=== PATIENT | male | born 1970 | race Caucasian/White ===

== ENCOUNTER 2017-05-27 06:49 | Inpatient (IN) | payer MEDICAID ==
[~2017-05-27 06:49] MED LIST: Dexamethasone 4 MG/ML SDV ONE; Gabapentin 300 MG Cap PO ONE; Glycopyrrolate 0.2 MG/ML 5 ML MDV ONE; Lidocaine 1% 2 ML ONE; Midazolam 1 MG/ML 2 ML SDV ONE; Neostigmine Methylsulfate 1 MG/ML 5 ML Syringe ONE; Ondansetron 4 MG/2 ML SDV ONE; Propofol 200 MG/20 ML SDV ONE; Rocuronium 50 MG/5 ML Vial ONE; fentaNYL 100 MCG/2 ML SDV ONE
[2017-05-27] MEDS ORDERED: ceFAZolin 2 GM in Sodium Chloride 0.9% 50 ML IV ONE (07:00)
[2017-05-27] MEDS ORDERED: Dextrose 5%-Lactated Ringers 1,000 ML IV SCH (07:45)
[2017-05-27] MEDS ORDERED: Meropenem 500 MG SDV ONE (07:50)
[2017-05-27] MEDS ORDERED: Propranolol 10 MG Tab PO ONE (08:00)
[2017-05-27] MEDS ORDERED: Succinylcholine 200 MG/10 ML MDV ONE (08:23)
[2017-05-27] MEDS ORDERED: fentaNYL 100 MCG/2 ML SDV ONE ×3 (08:57→10:56)
[2017-05-27] MEDS ORDERED: Linezolid 200 MG/100 ML Bag IRR ONE (09:07)
[2017-05-27] MEDS ORDERED: Rocuronium 50 MG/5 ML Vial ONE ×2 (09:34)
[2017-05-27] MEDS: fentaNYL 25 MCG/HR Transdermal Patch TRDERM SCH (09:58)
[2017-05-27] MEDS ORDERED: Bacitracin Oint 1 GM U/D Packet ONE (10:10)
[2017-05-27] MEDS ORDERED: Naloxone 0.4 MG/ML SDV IVPUSH PRN (10:20)
[2017-05-27] MEDS ORDERED: HYDROmorphone/Normal Saline 15 MG/30 ML PCA IV PRN (10:20)
[2017-05-27] MEDS ORDERED: Naloxone 0.4 MG/ML SDV IV PRN (10:26)
[2017-05-27] MEDS ORDERED: HYDROmorphone/Normal Saline 15 MG/30 ML PCA IV ONE (10:27)
[2017-05-27] MEDS ORDERED: Mupirocin Oint 22 GM Tube TOP ONE (10:30)
[2017-05-27] MEDS ORDERED: Ketorolac 60 MG/2 ML SDV ONE (10:37)
[2017-05-27] MEDS ORDERED: hydrOXYzine HCl 100 MG/2 ML SDV IM ONE (11:29)
[2017-05-27] MEDS ORDERED: Ondansetron 4 MG/2 ML SDV IVPUSH PRN (12:38)
[2017-05-27] MEDS ORDERED: hydrOXYzine HCl 100 MG/2 ML SDV IM PRN (12:38)
[2017-05-27] MEDS ORDERED: hydrOXYzine HCl 25 MG Tab PO PRN (12:38)
[2017-05-27] MEDS: Dextrose 5%-Lactated Ringers 1,000 ML IV SCH ×2 (14:00→19:59)
[2017-05-27] MEDS: VERIFY FENTANYL PATCH TOP SCH ×2 (14:01→20:38)
[2017-05-27] MEDS: Propranolol 10 MG Tab PO SCH ×2 (14:03→20:37)
[2017-05-27] MEDS: Gabapentin 300 MG Cap PO SCH ×2 (14:04→20:38)
[2017-05-27] MEDS: ceFAZolin 2 GM in Sodium Chloride 0.9% 50 ML IV SCH ×2 (14:06→21:45)
[2017-05-27] MEDS: Mupirocin Oint 22 GM Tube TOP SCH (20:37)
[2017-05-27] MEDS: QUETIAPINE PO SCH ×2 (20:39)
[2017-05-28] MEDS: Dextrose 5%-Lactated Ringers 1,000 ML IV SCH ×3 (02:06→15:02)
[2017-05-28] MEDS: ceFAZolin 2 GM in Sodium Chloride 0.9% 50 ML IV SCH (06:04)
[2017-05-28] MEDS ORDERED: Rizatriptan 10 MG Tab.DIS PO PRN (08:25)
[2017-05-28] MEDS ORDERED: traMADol 50 MG Tab PO PRN (08:25)
[2017-05-28] MEDS: Pantoprazole 40 MG Tab.CR PO SCH (08:41)
[2017-05-28] MEDS ORDERED: TRIAMCINOLONE ACETONIDE INH SCH (09:00)
[2017-05-28] MEDS ORDERED: Gabapentin 300 MG Cap PO SCH (09:00)
[2017-05-28] MEDS ORDERED: DULoxetine 30 MG Cap PO SCH (09:00)
[2017-05-28] MEDS ORDERED: Furosemide 20 MG Tab PO SCH (09:00)
[2017-05-28] MEDS: Fluticasone Propionate Nasal Spray 16 GM Bottle NASBOTH SCH (10:02)
[2017-05-28] MEDS: VERIFY FENTANYL PATCH TOP SCH ×2 (10:03→20:24)
[2017-05-28] MEDS: Furosemide 20 MG Tab PO SCH (10:04)
[2017-05-28] MEDS: Gabapentin 300 MG Cap PO SCH ×3 (10:04→20:23)
[2017-05-28] MEDS: DULoxetine 30 MG Cap PO SCH (10:05)
[2017-05-28] MEDS: Mupirocin Oint 22 GM Tube TOP SCH ×2 (10:05→20:23)
[2017-05-28] MEDS: Propranolol 10 MG Tab PO SCH ×3 (10:06→20:24)
[2017-05-28] MEDS: Naloxegol Oxalate 25 MG Tab PO SCH (10:10)
[2017-05-28] MEDS: oxyCODONE 5 MG Tab PO PRN ×4 (10:30→22:32)
[2017-05-28] MEDS: Diclofenac Sodium 1% Gel 100 GM Tube TOP SCH ×3 (10:31→21:09)
[2017-05-28] MEDS: traMADol 50 MG Tab PO SCH (10:33)
--- NOTE | 2017-05-28 11:25 | PN ---
DATE OF SERVICE: 05/28/2017 SUBJECTIVE: Dave is postop day #1. Vital signs have been stable. Temp max 98.8. Oral intake of 1000. Ponce catheter before it was removed was 4125. ANGELES drain 1 and 2 have put out 23 and 23, respectively. He has been up ambulating. Pain has been controlled. REVIEW OF SYSTEMS: Remainder of review of systems negative for any pertinent positives and negatives. OBJECTIVE: GENERAL: Dave Smith is a 46-year-old male. He is alert and orientated. VITAL SIGNS: TPR 98.1, 88, 17, and blood pressure 115/62. HEENT: Negative. NECK: Supple. HEART: Regular rate and rhythm. LUNGS: Clear. ABDOMEN: Dressings dry and intact. Abdominal binder is on. EXTREMITIES: Without peripheral edema. ASSESSMENT: Open repair of recurrent incarcerated incisional hernia associated with painful, distorted, overlying abdominal wall scar. It was an open repair with mesh and revision of scar. Date of surgery 05/27/2017, Donaldo Ayon MD. PLAN: 1. Full liquid diet, advanced to regular as tolerated. 2. Precose 75 mg p.o. t.i.d. before meals. 3. Diclofenac sodium, Voltaren topical, apply q.i.d. to affected area. 4. Cymbalta 30 mg p.o. daily. 5. Furosemide 20 mg p.o. daily. 6. Gabapentin 600 mg p.o. t.i.d. 7. Naloxegol oxalate 25 mg p.o. daily. 8. Oxycodone 5 to 10 mg q.4 hours p.r.n. pain. 9. Seroquel 500 mg at bedtime. 10.Maxalt 10 mg p.r.n. headache, take one dose at onset of headache and repeat in 2 hours. 11.Tramadol 50 mg q.6 hours p.r.n. He uses this for joint pain. 12.Discontinue MANNEQUIN SANDER AND FINISHER. Discontinue continuous pulse ox. 13.N.p.o. after midnight. Dr. Ayon will check his incision. If he looks like he is reacting to the lias, then we will take him to OR and use IV and local sedation and put in sutures instead. This was discussed with Dave. He has had staple several years in the past, but the last time he said they "melted his skin." When he is n.p.o., during the night, if he has pain, he can have Dilaudid IV 2 mg if needed until Dr. Ayon looks at him so he remains completely n.p.o. 14.Good pulmonary toilet encouraged. 15.We will evaluate p.r.n. or in a.m. Shelby Rodriguez PA-C /[id number]
[2017-05-28] MEDS: Cyclobenzaprine 10 MG Tab PO PRN ×2 (12:45→20:23)
[2017-05-28] MEDS: QUETIAPINE PO SCH ×2 (20:25)
[2017-05-28] MEDS ORDERED: QUEtiapine 100 MG Tab PO SCH (21:00)
[2017-05-29] MEDS: Dextrose 5%-Lactated Ringers 1,000 ML IV SCH (00:37)
[2017-05-29] MEDS: HYDROmorphone 1 MG/ML Syringe IVPUSH PRN ×2 (02:32→05:30)
[2017-05-29] MEDS: Diclofenac Sodium 1% Gel 100 GM Tube TOP SCH ×4 (05:34→22:08)
[2017-05-29] MEDS: Pantoprazole 40 MG Tab.CR PO SCH (07:24)
[2017-05-29] MEDS: oxyCODONE 5 MG Tab PO PRN ×4 (07:27→20:44)
[2017-05-29] MEDS ORDERED: Bisacodyl 5 MG Tab PO ONE (08:30)
[2017-05-29] MEDS: Mupirocin Oint 22 GM Tube TOP SCH ×2 (08:38→20:41)
[2017-05-29] MEDS: Propranolol 10 MG Tab PO SCH ×3 (08:39→20:40)
[2017-05-29] MEDS: Furosemide 20 MG Tab PO SCH (08:39)
[2017-05-29] MEDS: DULoxetine 30 MG Cap PO SCH (08:40)
[2017-05-29] MEDS: Fluticasone Propionate Nasal Spray 16 GM Bottle NASBOTH SCH (08:40)
[2017-05-29] MEDS: Gabapentin 300 MG Cap PO SCH ×3 (08:41→20:40)
[2017-05-29] MEDS: Naloxegol Oxalate 25 MG Tab PO SCH (08:41)
[2017-05-29] MEDS: VERIFY FENTANYL PATCH TOP SCH ×2 (08:41→20:40)
[2017-05-29] MEDS: traMADol 50 MG Tab PO SCH (08:46)
[2017-05-29] MEDS ORDERED: Magnesium Hydroxide 400 MG/5 ML Susp 30 ML Cup PO ONE (09:30)
[2017-05-29] MEDS: QUETIAPINE PO SCH ×2 (20:39)
[2017-05-30] MEDS: oxyCODONE 5 MG Tab PO PRN ×2 (01:03→07:07)
[2017-05-30] MEDS: Diclofenac Sodium 1% Gel 100 GM Tube TOP SCH (06:20)
[2017-05-30] MEDS: Pantoprazole 40 MG Tab.CR PO SCH (07:14)
[2017-05-30 07:17] VITALS: BP 120/61
[2017-05-30] MEDS: Fluticasone Propionate Nasal Spray 16 GM Bottle NASBOTH SCH (08:10)
[2017-05-30] MEDS: Naloxegol Oxalate 25 MG Tab PO SCH (08:10)
[2017-05-30] MEDS: Gabapentin 300 MG Cap PO SCH (08:10)
[2017-05-30] MEDS: Furosemide 20 MG Tab PO SCH (08:11)
[2017-05-30] MEDS: DULoxetine 30 MG Cap PO SCH (08:11)
[2017-05-30] MEDS: Propranolol 10 MG Tab PO SCH (08:11)
[2017-05-30] MEDS: Mupirocin Oint 22 GM Tube TOP SCH (08:12)
[2017-05-30] MEDS: fentaNYL 25 MCG/HR Transdermal Patch TRDERM SCH (08:15)
[2017-05-30] MEDS: traMADol 50 MG Tab PO SCH (08:15)
[2017-05-30] MEDS: VERIFY FENTANYL PATCH TOP SCH (08:15)
--- NOTE | 2017-05-30 08:39 | PN ---
DATE OF SERVICE: 05/29/2017 The patient has been afebrile with stable vital signs. No major problems noted overnight. Oral intake is fairly good. We will go up to a step-4 gastric bypass diet today. Incision looks clean with there being no signs of any reaction to the skin lisa, having showered today. He is switched over to oxycodone plus fentanyl patch for pain control and that is satisfactory. I will give him some bowel stimulation today. He may be ready for discharge home tomorrow. Donaldo Ayon MD /[id number]
--- NOTE | 2017-05-31 01:30 | DISCH ---
ADMISSION DIAGNOSES: 1. Recurrent incarcerated incisional hernia. 2. Painful, distorted overlying abdominal wall scar. 3. Chronic upper and lower back pain. 4. Post-concussion syndrome. 5. Headache. 6. Occipital neuralgia. 7. Neurobehavioral disorder. 8. Posttraumatic stress disorder. 9. Anxiety disorder. 10.Insomnia. 11.Closed head injury. 12.Major depressive disorder. 13.Restless legs syndrome. 14.Giovany-en-Y gastric bypass surgery. 15.Unspecified surgical malabsorption. 16.B12 deficiency. 17.Hypoglycemia following gastrointestinal surgery. 18.Environmental allergies. 19.Osteoarthritis of both knees. 20.Vitamin D deficiency. 21.Iron deficiency anemia. 22.Agoraphobia. 23.Tobacco abuse. 24.Bilateral chronic knee pain. 25.Chronic pain of both shoulders. 26.Neck pain. 27.History of deep vein thrombosis of arm. 28.History of acute respiratory failure. 29.Chronic migraine. 30.Myofascial muscle pain. 31.Physical deconditioning. DISCHARGE DIAGNOSIS: Open repair of recurrent incarcerated incisional hernia associated with painful distorted overlying abdominal scar. It was an open repair with mesh and revision of scar. Date of surgery 05/27/2017; Donaldo Ayon M.D. HISTORY: Dave Smith is a 46-year-old male with a recurrent incarcerated incisional hernia associated with a painful distorted overlying abdominal wall scar. After preoperative evaluation, discussion of possible risks and possible complications, he wished to proceed with surgical procedure. HOSPITAL COURSE: Dave had his surgery on 05/27/2017. He had no operative complications. On postop day #1, he was started on a full liquid diet and advanced to a regular diet. His pain was controlled. He was changed from a HOT PATCHER to oral pain medication. His activity was good. On postop day #2, he continued to progress, activity increased, vital signs remained stable, incision looked good, and pain was controlled. On postop day #3, he was able to be discharged to home without any complications. PHYSICAL EXAMINATION: GENERAL: Dave Smith is a 46-year-old male. VITAL SIGNS: Height is 6 feet 0.05 inches, weight is 193 pounds, BMI is 26. TPR 98.2, 89, 16. Blood pressure 120/61. HEENT: Negative. NECK: Supple. HEART: Regular rate and rhythm. LUNGS: Clear. ABDOMEN: [place] intact. There is no skin irritation around the lisa. ANGELES drains x2 intact. Skin area where the ANGELES drains are inserted, looks good. Sutures in place. ANGELES drains are draining a light pink serous drainage. Abdominal binder has been on. EXTREMITIES: Without peripheral edema. DISPOSITION: Discharged to home. CONDITION: Stable and improving. FOLLOWUP APPOINTMENT: Shelby Rodriguez PA-C, on 06/03/2017 at 9:00 a.m. HOME MEDICATIONS: 1. Bactroban ointment use around each ANGELES drain site twice daily and p.r.n. 2. Oxycodone 5 mg take 1 to 2 every 4 hours p.r.n. pain, #50. A new fentanyl patch was placed today on the day of discharge, 05/30/2017. He is to remove that on 06/02/2017. Resume home medications of: 1. Precose 75 mg oral 3 times a day with meals. 2. Calcium citrate 250 mg oral daily. 3. Vitamin D3 5000 international units daily. 4. Cymbalta 30 mg oral daily. 5. Voltaren 1% gel use 4 times daily to affected area. 6. Lasix 20 mg oral daily. 7. Gabapentin 600 mg oral 3 times a day. 8. Multivitamin 1 capsule oral daily. 9. Movantik 25 mg oral daily. 10.Inderal 20 mg oral 3 times a day as needed for tremor. 11.Quetiapine fumarate 500 mg oral at bedtime. 12.Rizatriptan benzoate 10 mg sublingual as directed (Maxalt) 1 dose one time, may repeat in 2 hours if needed, maximum dose 30 mg in 24 hours p.r.n. migraine headaches. 13.Triamcinolone acetonide. 14.Nasacort AQ spray 2 sprays in each nostril once daily. 15.Vitamin B complex 1 before breakfast. 16.Tramadol 50 mg every 6 hours p.r.n. joint pain. DISCHARGE INSTRUCTIONS: 1. Diet after discharge: Usual diet as tolerated. Drink 8 to 10 glasses of water a day. 2. Activity: Cough and deep breath frequently. No lifting greater than 10 pounds for 6 weeks. 3. Driving after discharge: Do not drive on pain medication. 4. Shower/bathing: May shower. 5. Notify provider if any fever, increased pain, swelling, redness, drainage, nausea or vomiting. 6. Wound incision care:. a. Keep site clean and dry. Wear abdominal binder for 6 weeks and then as tolerated. b. Strip, empty, drain, and record ANGELES drains 4 times a day and when half full bring record of drainage to clinic appointment. SPECIAL INSTRUCTIONS: Use incentive spirometer every hour while awake for 1 week and take off fentanyl patch on , 06/02/2017.
--- NOTE | 2017-06-06 09:23 | OR ---
DATE OF PROCEDURE: 05/27/2017 PREOPERATIVE DIAGNOSES: 1. Recurrent incarcerated incisional hernia. 2. Associated painful distorted overlying abdominal wall scar. POSTOPERATIVE DIAGNOSES: 1. Recurrent incarcerated incisional hernia. 2. Associated painful distorted overlying abdominal wall scar. 3. Marked intraabdominal and pelvic adhesions. OPERATIVE PROCEDURES: 1. Open repair of recurrent incarcerated incisional hernia with mesh (63252, 55200). 2. Excision of distorted painful overlying abdominal wall scar (30612). 3. Placement of Vicryl mesh to displace viscera from pelvic and abdominal wall to limit recurrent adhesion formation (43643). ANESTHESIA: General. AN EMPLOYEE SPONSOR OR ADVOCATE AND: Shelby Rodriguez PA-C, and JESUS MANUEL Jones. INDICATION FOR PROCEDURE: This 46-year-old male is presenting with recurrent incisional hernia located in the upper mid abdomen. This has a component that clearly is not reducible. In addition to this, the patient had previously a large open wound and this healed with a large contracted defect overlying the hernia and extending somewhat below that. The plan is to proceed with open repair of recurrent incisional hernia with mesh along with excision of the contracted painful scar overlying the hernia. The potential risks of the procedure including bleeding, infection, injury to underlying viscera, problems with the hernia recurring or the mesh becoming infected; as well as the possibility of cardiopulmonary, septic, or hemorrhagic complications leading to were discussed, and the patient wishes to proceed. DETAILS OF PROCEDURE: The patient was taken to the operating room and placed in a supine position. After general endotracheal anesthesia was induced, a Ponce catheter was inserted, and the abdomen was prepped and draped. Initially, a vertically-oriented elliptical incision around the area of distorted scar was made and carried down through the skin and subcutaneous tissue, and this was then carried down to a point where the fascial edges were entered underlying the hernia site. The hernia sac was then progressively excised in continuity with the overlying cutaneous scar and that specimen eventually delivered from the field. There was some incarcerated small bowel as well as omentum within the hernia, which was dissected free during the course of the dissection. Below that, there was quite a bit in the way of adhesions between the omentum, small bowel, and the pelvic and abdominal fraser. These were taken down to allow adequate placement of the mesh. An oval Ventrio ST hernia patch measuring 19.6 cm x 24.6 cm was then selected and roughly 5 cm intervals around its circumference, 2-0 Vicryl sutures were placed on the polypropylene side of the mesh. Mesh was then soaked in antibiotic-containing saline solution. The stab wounds, where the suture was pulled up, were then marked out. We positioned these such that the edges of the mesh would be fixed to the point well away from the fascial defect itself. Once these were in place, the upper half of the sutures were then pulled through and then that portion of the mesh pulled into the intraabdominal location with the polypropylene side obviously facing the abdominal wall to limit recurrent adhesion formation. Then, a 12-inch segment of Vicryl mesh was then placed. This was positioned behind the urinary bladder along the pelvic sidewalls and up against the abdominal wall and underneath the incision to limit recurrent adhesion formation. Once this was completed, the remaining sutures of the mesh were pulled up, thus, fixing the mesh in general position. On the underlying shelf, the mesh was then circumferentially affixed additionally with titanium tacking screws. At that point, no further problems were noted. The area was irrigated with antibiotic-containing saline solution. The midline fascia was then approximated with a #2 Vicryl stitch and subcutaneous tissue was then closed with 2 layers of 3-0 and 4-0 Vicryl stitch at the subcutaneous tissue level and lisa for the skin. A 10-Upper Sorbian Asif-Collier drain had been also placed through a stab wound inferior incision, which was sutured to the skin with some 3-0 Vicryl stitch as well. The length of the scar revision was 20 cm. Dressing was applied. The patient was taken to the recovery room in a satisfactory condition. Physician assistant family teacher, Shelby Rodriguez, played an essential role in assisting in this case, helping to position the patient, retract structures as needed, as well as suturing and cutting sutures when indicated. Her presence improved patient safety and decreased the operative time. Donaldo Ayon MD /[id number]
== END 2017-05-30 09:00 | disposition home or self-care (01) | DRG 354 ==
LOC: JP.SDSSCHI 06:49 → JP.SDS 06:49 → EDSTATUS 09:00 → JP.2SS 12:27
PROVIDERS: ADMIT Surgery; ATTEND Surgery
PROC: 3E0M05Z Introduction of Adhesion Barrier into Peritoneal Cavity, Open Approach (ICD-10-PCS; principal; 2017-05-27)
PROC: 0HN7XZZ Release Abdomen Skin, External Approach (ICD-10-PCS; principal; 2017-05-27)
PROC: 0WUF0JZ Supplement Abdominal Wall with Synthetic Substitute, Open Approach (ICD-10-PCS; principal; 2017-05-27)
DX: K43.0 Incisional hernia with obstruction, without gangrene (principal); K91.2 Postsurgical malabsorption, not elsewhere classified; L90.5 Scar conditions and fibrosis of skin; E55.9 Vitamin D deficiency, unspecified; Z98.84 Bariatric surgery status; Z98.0 Intestinal bypass and anastomosis status; M17.0 Bilateral primary osteoarthritis of knee; E16.2 Hypoglycemia, unspecified; G43.909 Migraine, unspecified, not intractable, without status migrainosus; Z86.718 Personal history of other venous thrombosis and embolism; F91.8 Other conduct disorders; F43.10 Post-traumatic stress disorder, unspecified; F32.9 Major depressive disorder, single episode, unspecified; F41.9 Anxiety disorder, unspecified; M54.9 Dorsalgia, unspecified; M89.29 Other disorders of bone development and growth, multiple sites
CPT/HCPCS: 36415; 80053; 83735; 84100; 85027; 88305; 94762; A9270-GY; C1781; J0131; J0330; J0690; J1100; J1170; J1885; J2020; J2185; J2250; J2405; J2704; J2710; J3010; J3410; J7042; J7050

== ENCOUNTER 2017-06-24 14:16 | Emergency (ER) | payer MEDICAID ==
--- NOTE | 2017-06-24 14:59 | CR ---
Lordotic view. Heart size within normal limits. Pulmonary vasculature within normal limits. No focal consolidation.
[2017-06-24 16:49] VITALS: BP 128/65
--- NOTE | 2017-06-24 17:43 | EDM.PDOC ---
ED HPI GENERAL MEDICAL PROBLEM - General Chief Complaint: Cardiovascular Problem Stated Complaint: CHEST PAIN Time Seen by Provider: 06/24/17 14:22 Source of Information: Reports: Patient, Other (career coordinator nurses) History Limitations: Reports: No Limitations - History of Present Illness INITIAL COMMENTS - FREE TEXT/NARRATIVE: This patient was brought over from the career and guidance counselor unit where he was receiving a copper infusion. He's a gastric bypass patient. His pain has been going on for about 15-20 minutes. The pain seems to have started in the epigastric area and then went superiorly to the substernal area and all the way up to the throat. It seemed like reflux at first but then it has changed and he calls it a heavy pressure. It is moderately severe at the time that I saw him. It's noted he underwent an abdominal hernia repair on May 27. He denies any history of heart disease or chest pains area he denies shortness of breath. No history of swelling in the extremities or blood clots. - Related Data Allergies Allergy/AdvReac Type Severity Reaction Status Date / Time Iodinated Contrast- Oral and Allergy Unknown Itching Verified 06/24/17 12:09 IV Dye [Iodinated Contrast Media - IV Dye] iohexol [From Omnipaque 140] Allergy Unknown unknown Verified 06/24/17 12:09 morphine Allergy Unknown Itching Verified 06/24/17 12:09 acetaminophen [From Percocet] Allergy Itching Verified 06/24/17 12:09 oxycodone [From Percocet] Allergy Itching Verified 06/24/17 12:09 Home Meds: Home Meds Acarbose [Precose] 75 mg PO TIDMEALS 11/21/13 [History] Cholecalciferol (Vitamin D3) [Vitamin D3] 5,000 units PO DAILY 11/21/13 [History ] Diclofenac Sodium [Voltaren 1% Gel] 1 applic TP QID 11/21/13 [History] Multivitamin [Multivitamins] 1 cap PO DAILY 11/21/13 [History] Propranolol [Inderal] 20 mg PO TID PRN 11/21/13 [History] Vitamin B Complex 1 each PO ACBREAKFAST 11/21/13 [History] Rizatriptan Benzoate [Rizatriptan] 10 mg SL ASDIRECTED 01/16/15 [History] Triamcinolone Acetonide [Nasacort AQ [place]] 2 sprays INH DAILY 01/16/15 [History ] Gabapentin [Neurontin] 600 mg PO TID 07/02/16 [History] Calcium Citrate 250 mg PO DAILY 10/09/16 [History] QUEtiapine Fumarate [Quetiapine Fumarate] 200 mg PO BEDTIME 10/09/16 [History] DULoxetine [Cymbalta] 60 mg PO DAILY 05/26/17 [History] traMADol [Ultram] 50 mg PO Q6H PRN 05/26/17 [History] Onabotulinumtoxina [Botox] 200 units IM .Q90D 06/20/17 [History] Past Medical History HEENT History: Reports: Allergic Rhinitis, Impaired Vision Gastrointestinal History: Reports: Bowel Obstruction, Cholelithiasis, Chronic Constipation, GERD Musculoskeletal History: Reports: Back Pain, Chronic, Osteoarthritis Other Musculoskeletal History: arthritis Neurological History: Reports: Concussion, Headaches, Chronic, Head Trauma, Migraines Other Neuro History: mid-line shift Psychiatric History: Reports: Antisocial Behaviors, Anxiety, Depression, Emotional Problems, PTSD, Other (See Below) Other Psychiatric History: tbi 3 years ago Endocrine/Metabolic History: Reports: None Other Endocrine/Metabolic History: hypoglycemia Hematologic History: Reports: Anemia, B12 Deficiency - Infectious Disease History Infectious Disease History: Reports: Chicken Pox - Past Surgical History HEENT Surgical History: Reports: LASIK GI Surgical History: Reports: Bariatric Procedure, Cholecystectomy, EGD, Hernia , Abdominal, Lysis of Adhesions, Small Bowel Endocrine Surgical History: Reports: None Neurological Surgical History: Reports: None Musculoskeletal Surgical History: Reports: None Social & Family History - Tobacco Use Smoking Status *Q: Current Every Day Smoker Years of Tobacco use: 14 Packs/Tins Daily: 0.2 Used Tobacco, but Quit: No Month Tobacco Last Used: 07/06/2013 Second Hand Smoke Exposure: No - Caffeine Use Caffeine Use: Reports: Coffee - Alcohol Use Days Per Week of Alcohol Use: 0 - Recreational Drug Use Recreational Drug Use: No ED ROS GENERAL - Review of Systems Review Of Systems: See Below Constitutional: Reports: No Symptoms HEENT: Reports: No Symptoms Respiratory: Reports: No Symptoms Cardiovascular: Reports: Chest Pain Endocrine: Reports: No Symptoms GI/Abdominal: Reports: No Symptoms : Reports: No Symptoms Musculoskeletal: Reports: No Symptoms Skin: Reports: No Symptoms Neurological: Reports: No Symptoms ED EXAM, GENERAL - Physical Exam Exam: See Below Exam Limited By: No Limitations General Appearance: Alert, WD/WN, Mild Distress Eye Exam: Bilateral Eye: Normal Inspection Throat/Mouth: Normal Inspection Neck: Supple Respiratory/Chest: Lungs Clear Cardiovascular: Normal Peripheral Pulses, Regular Rate, Rhythm, No Murmur GI/Abdominal: Soft, Other (Patient's wearing an abdominal binder due to the recent surgery) Back Exam: Normal Inspection Extremities: Normal Inspection Neurological: Alert, Oriented Psychiatric: Normal Affect Skin Exam: Warm, Dry Course - Vital Signs Last Recorded V/S: Last Vital Signs Temp 37.2 C 06/24/17 14:33 Pulse 62 06/24/17 16:49 Resp 17 06/24/17 16:49 BP 128/65 06/24/17 16:49 Pulse Ox 97 06/24/17 16:49 - Orders/Labs/Meds Orders: Active Orders 24 hr Category Date Time Status EKG Documentation Completion [RC] ASDIRECTED Care 06/24/17 14:29 Active EKG 12 Lead [EK] Urgent Ther 06/24/17 14:29 Ordered Labs: Laboratory Tests 06/24/17 06/24/17 06/24/17 Range/Units 14:43 14:43 14:43 WBC 7.7 (4.5-11.0) K/uL RBC 4.68 (4.30-5.90) M/uL Hgb 14.5 (12.0-15.0) g/dL Hct 43.0 (40.0-54.0) % MCV 92 (80-98) fL MCH 31 (27-31) pg MCHC 34 (32-36) % Plt Count 219 (150-400) K/uL Neut % (Auto) 61 (36-66) % Lymph % (Auto) 27 (24-44) % [place] % (Auto) 9 H (2-6) % Eos % (Auto) 3 (2-4) % Baso % (Auto) 0 (0-1) % Sodium 141 (140-148) mmol/L Potassium 3.8 (3.6-5.2) mmol/L Chloride 108 (100-108) mmol/L Carbon Dioxide 28 (21-32) mmol/L Anion Gap 5.2 (5.0-14.0) mmol/L BUN 17 (7-18) mg/dL Creatinine 0.7 L (0.8-1.3) mg/dL Est Cr Clr Drug Dosing 147.81 mL/min Estimated GFR (MDRD) > 60 (>60) Glucose 89 (74-106) mg/dL Calcium 8.2 L (8.5-10.1) mg/dL Total Bilirubin 0.2 D (0.2-1.0) mg/dL AST 40 H (15-37) U/L ALT 71 (12-78) U/L Alkaline Phosphatase 143 H (46-116) U/L Troponin I < 0.017 (0.000-0.056) ng/mL Total Protein 6.0 L (6.4-8.2) g/dL Albumin 3.0 L (3.4-5.0) g/dL Globulin 3.0 (2.3-3.5) g/dL Albumin/Globulin Ratio 1.0 L (1.2-2.2) 10/17 Range/Units 17:00 WBC (4.5-11.0) K/uL RBC (4.30-5.90) M/uL Hgb (12.0-15.0) g/dL Hct (40.0-54.0) % MCV (80-98) fL MCH (27-31) pg MCHC (32-36) % Plt Count (150-400) K/uL Neut % (Auto) (36-66) % Lymph % (Auto) (24-44) % [place] % (Auto) (2-6) % Eos % (Auto) (2-4) % Baso % (Auto) (0-1) % Sodium (140-148) mmol/L Potassium (3.6-5.2) mmol/L Chloride (100-108) mmol/L Carbon Dioxide (21-32) mmol/L Anion Gap (5.0-14.0) mmol/L BUN (7-18) mg/dL Creatinine (0.8-1.3) mg/dL Est Cr Clr Drug Dosing mL/min Estimated GFR (MDRD) (>60) Glucose (74-106) mg/dL Calcium (8.5-10.1) mg/dL Total Bilirubin (0.2-1.0) mg/dL AST (15-37) U/L ALT (12-78) U/L Alkaline Phosphatase (46-116) U/L Troponin I < 0.017 (0.000-0.056) ng/mL Total Protein (6.4-8.2) g/dL Albumin (3.4-5.0) g/dL Globulin (2.3-3.5) g/dL Albumin/Globulin Ratio (1.2-2.2) - Radiology Interpretation Free Text/Narrative:: Chest x-ray shows normal heart size normal lung markings - Re-Assessments/Exams Free Text/Narrative Re-Assessment/Exam: 06/24/17 17:46 EKG shows normal sinus rhythm at 65 bpm normal intervals normal QRS normal ST and T waves. The patient became much more comfortable shortly after arriving. When he was rechecked later he was completely pain free and felt like he was ready to go home. We did do a repeat troponin after about 2-1/2 hours and that is negative. I have a very low index of suspicion on this patient I did not feel that a repeat EKG was necessary. Departure - Departure Time of Disposition: 17:42 Disposition: Home, Self-Care 01 Condition: Fair Clinical Impression: Chest pain Referrals: Connor Lopez MD [Primary Care Provider] - Forms: ED Department Discharge Additional Instructions: The pain you had doesn't appear to be related to any kind of heart trouble. Most likely it was from your esophagus may be a little bit of reflux possibly some spasm of your esophagus. Continue all your usual medications and you can go ahead and continue the infusions as arranged by your Dr. Return to the ER at any time if needed - My Orders Last 24 Hours: My Active Orders 06/24/17 14:29 EKG Documentation Completion [RC] ASDIRECTED EKG 12 Lead [EK] Urgent - Assessment/Plan Last 24 Hours: My Active Orders 06/24/17 14:29 EKG Documentation Completion [RC] ASDIRECTED EKG 12 Lead [EK] Urgent
== END 2017-06-24 18:01 | disposition home or self-care (01) ==
LOC: JP.ED 14:16
DX: R07.9 Chest pain, unspecified (principal); F17.210 Nicotine dependence, cigarettes, uncomplicated; Z98.890 Other specified postprocedural states; K21.9 Gastro-esophageal reflux disease without esophagitis; D64.9 Anemia, unspecified; Z79.899 Other long term (current) drug therapy; Z88.6 Allergy status to analgesic agent; Z91.041 Radiographic dye allergy status
CPT/HCPCS: 36415; 71010; 71010-26; 80053; 84484; 85025; 93005; 99285-25

== ENCOUNTER 2017-10-10 06:51 | Day surgery (SDC) | payer MEDICAID ==
[2017-10-10] MEDS ORDERED: Dextrose 5%-Lactated Ringers 1,000 ML IV SCH (07:00)
[2017-10-10] MEDS ORDERED: Midazolam 1 MG/ML 2 ML SDV ONE (07:08)
[2017-10-10] MEDS ORDERED: Propofol 200 MG/20 ML SDV ONE (07:08)
[2017-10-10] MEDS ORDERED: fentaNYL 100 MCG/2 ML SDV ONE (07:08)
[2017-10-10 09:41] VITALS: BP 121/74
--- NOTE | 2017-10-17 18:07 | OR ---
DATE OF PROCEDURE: 10/10/2017 PREOPERATIVE DIAGNOSIS: History of rectal bleeding. POSTOPERATIVE DIAGNOSES: 1. History of rectal bleeding with a normal examination to 30 cm. 2. Inadequate colonoscopy. PROCEDURE: Flexible colonoscopy (incomplete). ANESTHESIA: IV sedation. INDICATION FOR PROCEDURE: This 47-year-old male presenting with history of some rectal bleeding. This generally occurred after completion of bowel movement. The plan is to proceed with a flexible colonoscopy with biopsies and/or polypectomy as indicated. Potential risks including bleeding and perforation were discussed, and the patient wishes to proceed. DETAILS OF PROCEDURE: The patient was taken to the operating room and placed in a left lateral decubitus position. IV sedation was administered, after which the initial digital rectal exam was performed and was unremarkable. Colonoscope was then passed into the rectum. Retroflexion revealed some mildly excoriated hemorrhoids. The scope was then passed roughly 30 cm. The prep was very poor in this case when the scope could not be passed proximal to that. The limited examination to that level however was unremarkable apart from the very mildly excoriated hemorrhoids. Scope was then withdrawn and the procedure was then concluded. As discussed with the patient's , we do not have a good explanation for his rectal bleeding. This likely is hemorrhoidal, but I think we would to have a more complete exam prior to being sure to that. Given this, we will repeat the colonoscopy, prep overnight, and then bring him back tomorrow to hopefully complete a more thorough examination. Donaldo Ayon MD /[id number]
== END 2017-10-10 09:43 | disposition home or self-care (01) ==
LOC: JP.SDS 06:51
PROVIDERS: ATTEND Surgery
DX: K64.8 Other hemorrhoids (principal); K21.9 Gastro-esophageal reflux disease without esophagitis; F41.9 Anxiety disorder, unspecified; F32.9 Major depressive disorder, single episode, unspecified; F17.200 Nicotine dependence, unspecified, uncomplicated; Z88.8 Allergy status to other drugs, medicaments and biological substances; Z91.041 Radiographic dye allergy status; Z91.09 Other allergy status, other than to drugs and biological substances
CPT/HCPCS: 36415; 80053; 82607; 82728; 83735; 84100; 85027; J2250; J2704; J3010; J7042

== ENCOUNTER 2017-10-11 06:25 | Day surgery (SDC) | payer MEDICAID ==
[2017-10-11] MEDS ORDERED: Dextrose 5%-Lactated Ringers 1,000 ML IV SCH (07:00)
[2017-10-11] MEDS ORDERED: Midazolam 1 MG/ML 2 ML SDV ONE (07:09)
[2017-10-11] MEDS ORDERED: Propofol 200 MG/20 ML SDV ONE (07:09)
[2017-10-11] MEDS ORDERED: fentaNYL 100 MCG/2 ML SDV ONE (07:09)
[2017-10-11 08:57] VITALS: BP 130/82
--- NOTE | 2017-10-17 19:37 | OR ---
DATE OF PROCEDURE: 10/11/2017 PREOPERATIVE DIAGNOSIS: History of rectal bleeding. POSTOPERATIVE DIAGNOSES: History of rectal bleeding likely associated with hemorrhoids. OPERATIVE PROCEDURE: Flexible colonoscopy. ANESTHESIA: IV sedation. INDICATION FOR PROCEDURE: The patient presents once again for a flexible colonoscopy to evaluate history of some rectal bleeding. His prep yesterday was unsatisfactory and he reports better results today with regard to the procedure with flexible colonoscopy with biopsies and/or polypectomy as indicated. Potential risks including bleeding and perforation were discussed, and the patient wishes to proceed. DESCRIPTION OF PROCEDURE: The patient was taken to the operating room and placed in the left lateral decubitus position. IV sedation was administered, after which the initial digital rectal exam was performed and it was unremarkable. Colonoscope was then passed into the rectum with retroflexion revealing the uncomplicated hemorrhoidal columns. The scope was then eventually passed to the level of the cecum. Today the prep was fairly good. There was still some moderate solid and liquid stool present, but the vast majority of the surface was radically visualized and only a small polyp would be missed under what appeared to be some excoriated hemorrhoids following up somewhat better prep of the hemorrhoids appeared to be somewhat more excoriated than yesterday and will likely explain the history of the patient having some bleeding at the end of the bowel movement. Apart from that, there was no areas of colitis, no diverticular disease and no polyps or other signs of neoplasia seen throughout the rectum and colon. The scope was then withdrawn, the above findings reconfirmed and the procedure concluded. The patient was taken to the recovery room in satisfactory condition. Recommendation would be to have the patient present within a day or two of any episodes of major rectal bleeding to evaluate the patient in the clinic to potentially provide him with hemorrhoid banding if indicated at that point. Donaldo Ayon MD /[id number]
== END 2017-10-11 09:00 | disposition home or self-care (01) ==
LOC: JP.SDS 06:25
PROVIDERS: ATTEND Surgery
DX: K64.8 Other hemorrhoids (principal); F32.9 Major depressive disorder, single episode, unspecified; Z88.8 Allergy status to other drugs, medicaments and biological substances; Z91.041 Radiographic dye allergy status; Z91.09 Other allergy status, other than to drugs and biological substances; F17.200 Nicotine dependence, unspecified, uncomplicated
CPT/HCPCS: J2250; J2704; J3010; J7042

== ENCOUNTER 2017-12-30 11:12 | Inpatient (IN) | payer MEDICAID ==
[~2017-12-30 11:12] MED LIST changes: +Acetaminophen 500 MG Tab PO ONE; +Celecoxib 200 MG Cap PO ONE; -Dexamethasone 4 MG/ML SDV ONE; -Gabapentin 300 MG Cap PO ONE; -Glycopyrrolate 0.2 MG/ML 5 ML MDV ONE; -Lidocaine 1% 2 ML ONE; +Meropenem 500 MG SDV ONE; -Midazolam 1 MG/ML 2 ML SDV ONE; -Neostigmine Methylsulfate 1 MG/ML 5 ML Syringe ONE; -Ondansetron 4 MG/2 ML SDV ONE; -Propofol 200 MG/20 ML SDV ONE; -Rocuronium 50 MG/5 ML Vial ONE; +Scopolamine 1.5 MG Transdermal Patch TRDERM SCH; -fentaNYL 100 MCG/2 ML SDV ONE
[2017-12-30] MEDS ORDERED: Ropivacaine 44 ML, Dexamethasone 8 MG, EPINEPHrine 0.4 MG, Sodium Chloride 0.9% 33.6 ML NERVRT SCH ×4 (11:30)
[2017-12-30] MEDS ORDERED: Ketamine 500 MG/5 ML MDV IV SCH (11:30)
[2017-12-30] MEDS: Dextrose 5%-Lactated Ringers 1,000 ML IV SCH ×2 (11:36→19:12)
[2017-12-30] MEDS ORDERED: Neostigmine Methylsulfate 1 MG/ML 5 ML Syringe ONE (13:07)
[2017-12-30] MEDS ORDERED: fentaNYL 250 MCG/5 ML SDV ONE ×2 (13:07→14:49)
[2017-12-30] MEDS ORDERED: Ondansetron 4 MG/2 ML SDV ONE (13:07)
[2017-12-30] MEDS ORDERED: Rocuronium 50 MG/5 ML Vial ONE ×2 (13:07→14:31)
[2017-12-30] MEDS ORDERED: Dexamethasone 4 MG/ML SDV ONE (13:07)
[2017-12-30] MEDS ORDERED: Propofol 200 MG/20 ML SDV ONE (13:07)
[2017-12-30] MEDS ORDERED: Glycopyrrolate 0.2 MG/ML 5 ML MDV ONE (13:07)
[2017-12-30] MEDS ORDERED: Gabapentin 300 MG Cap PO ONE (13:08)
[2017-12-30] MEDS: cefOXitin 2 GM in Sodium Chloride 0.9% 50 ML IV ONE ×2 (13:27→19:53)
[2017-12-30] MEDS: HYDROmorphone/Normal Saline 15 MG/30 ML PCA IV SCH (14:52)
[2017-12-30] MEDS ORDERED: Naloxone 0.4 MG/ML SDV IV PRN (16:07)
[2017-12-30] MEDS ORDERED: hydrOXYzine HCl 100 MG/2 ML SDV IM ONE (16:53)
[2017-12-30] MEDS: Mupirocin Oint 22 GM Tube TOP SCH ×2 (17:00→21:04)
[2017-12-30] MEDS ORDERED: fentaNYL 100 MCG/2 ML SDV IVPUSH ONE (17:19)
[2017-12-30] MEDS ORDERED: diphenhydrAMINE 50 MG/ML SDV IVPUSH SCH (19:15)
[2017-12-30] MEDS ORDERED: methylPREDNISolone Sodium Succinate 125 MG/2 ML SDV IVPUSH SCH (19:15)
[2017-12-30] MEDS ORDERED: Ondansetron 4 MG/2 ML SDV IVPUSH PRN (19:41)
[2017-12-30] MEDS ORDERED: Metoclopramide 10 MG/2 ML SDV IVPUSH PRN (19:41)
[2017-12-30] MEDS ORDERED: Labetalol 20 MG/4 ML Syringe IVPUSH PRN (19:48)
[2017-12-30] MEDS: cefOXitin 2 GM in Sodium Chloride 0.9% 50 ML IV SCH (19:54)
[2017-12-30] MEDS ORDERED: Gabapentin 250 MG/5 ML Solution ML 470 ML Bottle PO SCH (21:00)
[2017-12-30] MEDS: Pantoprazole 40 MG Vial IV SCH (21:04)
[2017-12-30] MEDS: Acetaminophen Soln 650 MG/20.3 ML UD Cup PO SCH (21:04)
[2017-12-30] MEDS: hydrOXYzine HCl 100 MG/2 ML SDV IM PRN (21:14)
[2017-12-31] MEDS ORDERED: Iohexol 647 MG/ML 50 ML SDV PO PRN (00:33)
[2017-12-31] MEDS ORDERED: Meperidine PF 100 MG/ML Syringe IM ONE (01:53)
[2017-12-31] MEDS ORDERED: hydrOXYzine HCl 100 MG/2 ML SDV IM ONE (01:54)
[2017-12-31] MEDS: Acetaminophen Soln 650 MG/20.3 ML UD Cup PO SCH ×4 (02:00→19:47)
[2017-12-31] MEDS: HYDROmorphone/Normal Saline 15 MG/30 ML PCA IV SCH ×3 (02:08→13:18)
[2017-12-31] MEDS: cefOXitin 2 GM in Sodium Chloride 0.9% 50 ML IV SCH ×4 (02:34→19:46)
[2017-12-31] MEDS: LORazepam 2 MG/ML SDV IVPUSH PRN ×2 (03:49→15:59)
[2017-12-31] MEDS: Dextrose 5%-Lactated Ringers 1,000 ML IV SCH ×2 (07:02→12:30)
[2017-12-31] MEDS: hydrOXYzine HCl 100 MG/2 ML SDV IM PRN (07:22)
[2017-12-31] MEDS: Mupirocin Oint 22 GM Tube TOP SCH ×2 (08:02→21:17)
[2017-12-31] MEDS ORDERED: Gabapentin 250 MG/5 ML Solution ML 470 ML Bottle PO SCH (09:00)
[2017-12-31] MEDS ORDERED: MVI, Adult with Vitamin K 10 ML, Thiamine 200 MG, Chromium/Copper/Mang/Selen/Zn 1 ML in... IV SCH ×12 (09:00→14:30)
[2017-12-31] MEDS: Celecoxib 200 MG Cap PO SCH (09:33)
[2017-12-31] MEDS: Heparin Sodium 5,000 Units/ML Vial SUBCUT SCH ×2 (09:33→21:16)
[2017-12-31] MEDS: diphenhydrAMINE 50 MG/ML SDV IVPUSH PRN ×2 (10:00→19:51)
[2017-12-31] MEDS: fentaNYL 25 MCG/HR Transdermal Patch TRDERM SCH (10:47)
[2017-12-31] MEDS: DULoxetine 30 MG Cap PO SCH ×2 (12:33→21:18)
[2017-12-31] MEDS: Propranolol 40 MG Tab PO SCH ×2 (12:34→19:46)
[2017-12-31] MEDS: busPIRone 5 MG Tab PO SCH ×3 (12:34→21:17)
[2017-12-31] MEDS: Nicotine 21 MG/24 Hr Patch TRDERM SCH (12:35)
[2017-12-31] MEDS: Furosemide 20 MG Tab PO SCH (12:35)
[2017-12-31] MEDS: traMADol 50 MG Tab PO SCH ×3 (13:17→21:16)
[2017-12-31] MEDS: Gabapentin 250 MG/5 ML Solution ML 470 ML Bottle PO SCH ×2 (13:18→21:16)
[2017-12-31] MEDS ORDERED: Dextrose 5%-Lactated Ringers 1,000 ML IV SCH (18:00)
[2017-12-31] MEDS: Pantoprazole 40 MG Vial IV SCH (19:46)
[2017-12-31] MEDS: ALPRAZolam 0.5 MG Tab PO SCH (21:17)
[2018-01-01] MEDS: HYDROmorphone/Normal Saline 15 MG/30 ML PCA IV SCH (02:14)
[2018-01-01] MEDS: cefOXitin 2 GM in Sodium Chloride 0.9% 50 ML IV SCH ×4 (02:16→19:58)
[2018-01-01] MEDS: Acetaminophen Soln 650 MG/20.3 ML UD Cup PO SCH ×4 (02:17→19:59)
[2018-01-01] MEDS: hydrOXYzine HCl 100 MG/2 ML SDV IM PRN ×2 (02:51→16:26)
[2018-01-01] MEDS: Propranolol 40 MG Tab PO SCH ×3 (05:00→19:58)
[2018-01-01] MEDS: traMADol 50 MG Tab PO SCH ×6 (05:00→22:03)
[2018-01-01] MEDS: LORazepam 2 MG/ML SDV IVPUSH PRN (05:22)
[2018-01-01] MEDS: DULoxetine 30 MG Cap PO SCH ×2 (08:41→20:49)
[2018-01-01] MEDS: busPIRone 5 MG Tab PO SCH ×3 (08:41→20:48)
[2018-01-01] MEDS: Gabapentin 250 MG/5 ML Solution ML 470 ML Bottle PO SCH ×3 (08:42→22:04)
[2018-01-01] MEDS: Furosemide 20 MG Tab PO SCH (08:42)
[2018-01-01] MEDS: Celecoxib 200 MG Cap PO SCH (08:42)
[2018-01-01] MEDS: Nicotine 21 MG/24 Hr Patch TRDERM SCH (08:43)
[2018-01-01] MEDS: Heparin Sodium 5,000 Units/ML Vial SUBCUT SCH ×2 (08:44→20:50)
[2018-01-01] MEDS ORDERED: REMOVE SCOPOLAMINE TRDERM ONE (09:00)
[2018-01-01] MEDS ORDERED: Cyanocobalamin (Vitamin B12) 1,000 MCG/ML SDV IM ONE (09:00)
[2018-01-01] MEDS: Mupirocin Oint 22 GM Tube TOP SCH ×2 (09:33→20:47)
[2018-01-01] MEDS ORDERED: Sodium Chloride 0.9% 10 ML Syringe IV PRN (09:36)
[2018-01-01] MEDS ORDERED: Polyethylene Glycol 3350 Powder 119 GM Bottle PO ONE (10:00)
[2018-01-01] MEDS: oxyCODONE 5 MG Tab PO PRN ×4 (10:10→22:50)
[2018-01-01] MEDS ORDERED: NASACORT NASBOTH PRN (14:21)
--- NOTE | 2018-01-01 17:38 | PN ---
DATE OF SERVICE: 01/01/2018 The patient has been afebrile with stable vital signs. Oral intake has been fairly good, around 3500 mL. He is not moving his bowels and was extremely constipated intraoperatively, so we will give him MiraLax 119 g today with Gatorade and do that more or less daily until we get him on a decent bowel regimen. Otherwise, switch over to oral pain medication. Discontinue the Ponce catheter and maximize activity and work with pulmonary toilet. Donaldo Ayon MD /[id number]
[2018-01-01] MEDS: Pantoprazole 40 MG Vial IV SCH (19:59)
[2018-01-01] MEDS: ALPRAZolam 0.5 MG Tab PO SCH (20:51)
[2018-01-02] MEDS: cefOXitin 2 GM in Sodium Chloride 0.9% 50 ML IV SCH ×2 (02:31→08:17)
[2018-01-02] MEDS: Acetaminophen Soln 650 MG/20.3 ML UD Cup PO SCH ×4 (02:38→20:26)
[2018-01-02] MEDS: oxyCODONE 5 MG Tab PO PRN ×4 (02:38→19:38)
[2018-01-02] MEDS: Propranolol 40 MG Tab PO SCH ×3 (04:43→20:26)
[2018-01-02] MEDS: traMADol 50 MG Tab PO SCH ×5 (05:21→21:57)
[2018-01-02] MEDS: busPIRone 5 MG Tab PO SCH ×3 (08:06→20:27)
[2018-01-02] MEDS: Mupirocin Oint 22 GM Tube TOP SCH ×2 (08:06→20:30)
[2018-01-02] MEDS: DULoxetine 30 MG Cap PO SCH ×2 (08:07→20:30)
[2018-01-02] MEDS: Heparin Sodium 5,000 Units/ML Vial SUBCUT SCH ×2 (08:07→20:29)
[2018-01-02] MEDS: Celecoxib 200 MG Cap PO SCH (08:07)
[2018-01-02] MEDS: Furosemide 20 MG Tab PO SCH (08:08)
[2018-01-02] MEDS: Gabapentin 250 MG/5 ML Solution ML 470 ML Bottle PO SCH ×3 (08:08→20:26)
[2018-01-02] MEDS ORDERED: hydrOXYzine HCl 100 MG/2 ML SDV IM ONE (08:09)
--- NOTE | 2018-01-02 08:10 | PN ---
DATE OF SERVICE: 12/31/2017 The patient has been afebrile with stable vital signs. Pain control remains somewhat of an issue. He is on quite a bit of pain medicine and will add a fentanyl patch to current regimen today, as well as some tramadol, which he takes on a routine basis. Otherwise, will go up to a step-2 diet, as upper GI x-ray looks good, Ponce catheter will get out tomorrow morning, and back down on the IV rate somewhat, continue to maximize activity, and work with pulmonary toilet. Donaldo Ayon MD /[id number]
[2018-01-02] MEDS: LORazepam 2 MG/ML SDV IVPUSH PRN ×2 (08:54→16:32)
[2018-01-02] MEDS ORDERED: Polyethylene Glycol 3350 Powder 119 GM Bottle PO ONE (09:00)
[2018-01-02] MEDS ORDERED: Tamsulosin 0.4 MG Cap.ER PO ONE (09:00)
--- NOTE | 2018-01-02 09:38 | CR ---
UGI wo KUB CLINICAL HISTORY: Revision of Giovany-en-Y FINDINGS: 2 upright views of the abdomen were obtained after ingesting a small amount of water-solubl e contrast. There is contrast in the distal esophagus. The delayed image at 20 minutes shows contrast traversing the jejunum and the proximal ileum. There is no evidence of obstruction. No extravasation is seen. Surgical drains are seen in the left lower abdomen There is a tiny amount of free air under the left hemidiaphragm. IMPRESSION: No evidence of extravasation or obstruction post surgery
[2018-01-02] MEDS: Nicotine 21 MG/24 Hr Patch TRDERM SCH (10:09)
[2018-01-02] MEDS: VERIFY FENT PATCH TOP SCH ×2 (13:12→20:29)
[2018-01-02] MEDS: hydrOXYzine HCl 100 MG/2 ML SDV IM PRN (16:15)
--- NOTE | 2018-01-02 16:49 | PN ---
DATE OF SERVICE: 01/02/2018 SUBJECTIVE: Dave is postop day 3, had some urinary retention. Ponce catheter had to be replaced. He is starting to have bowel movements. Pain is controlled. REVIEW OF SYSTEMS: Remainder of review of systems is negative for any pertinent positives and negatives. OBJECTIVE: GENERAL: Dave Smith is a 47-year-old male. He is alert and orientated. VITAL SIGNS: TPR 98.9, 85, 16; blood pressure 140/78. HEENT: Negative. NECK: Supple. HEART: Regular rate and rhythm. LUNGS: Clear. ABDOMEN: Dressings dry and intact. Abdominal binder is on. EXTREMITIES: Without peripheral edema. ASSESSMENT: Exploratory laparotomy with release of small-bowel obstruction, removal of intraperitoneal mesh, percutaneous liver biopsy, gastric bypass revision, and small bowel resection. Date, 12/30/2017. Surgeon, Donaldo Ayon MD. PLAN: 1. Flomax 0.4 mg p.o. now. 2. Flomax 0.4 mg at bedtime p.o. 3. Discontinue Ponce in a.m., 01/03/2018 at 0500. 4. Senna Plus 2 at bedtime. 5. Flomax 0.4 mg p.o. at bedtime, starting today. 6. MiraLAX 119 g in 32 ounces of Gatorade today. 7. Good pulmonary toilet. 8. We will evaluate p.r.n. or in a.m. Shelby Rodriguez PA-C /[id number]
[2018-01-02] MEDS: ALPRAZolam 0.5 MG Tab PO SCH (20:26)
[2018-01-02] MEDS: Tamsulosin 0.4 MG Cap.ER PO SCH (20:28)
[2018-01-02] MEDS: Pantoprazole 40 MG Tab.CR PO SCH (20:28)
[2018-01-03] MEDS: Propranolol 40 MG Tab PO SCH ×3 (03:05→20:37)
[2018-01-03] MEDS: oxyCODONE 5 MG Tab PO PRN ×5 (03:05→22:31)
[2018-01-03] MEDS: Acetaminophen Soln 650 MG/20.3 ML UD Cup PO SCH ×4 (03:05→20:37)
[2018-01-03] MEDS: traMADol 50 MG Tab PO SCH ×5 (05:39→22:30)
--- NOTE | 2018-01-03 08:44 | PN ---
DATE OF SERVICE: 01/03/2018 The patient has been afebrile with stable vital signs. Pain control is better with the addition of the Vistaril. We will keep him one more day to establish a good bowel regimen. I think we will try, in addition to the Senna Plus, getting him on 3 scoops, i.e., 17 grams x3 of MiraLax daily. JPs #2 and #3 will be removed. The ANGELES #1 has an incision, he will go home with that probably tomorrow. Donaldo Ayon MD /[id number]
[2018-01-03] MEDS ORDERED: Polyethylene Glycol 3350 Powder 17 GM Packet PO ONE (09:00)
[2018-01-03] MEDS: busPIRone 5 MG Tab PO SCH ×3 (09:21→20:36)
[2018-01-03] MEDS: Heparin Sodium 5,000 Units/ML Vial SUBCUT SCH ×2 (09:21→20:39)
[2018-01-03] MEDS: Nicotine 21 MG/24 Hr Patch TRDERM SCH (09:21)
[2018-01-03] MEDS: Celecoxib 200 MG Cap PO SCH (09:22)
[2018-01-03] MEDS: Gabapentin 250 MG/5 ML Solution ML 470 ML Bottle PO SCH ×3 (09:22→20:53)
[2018-01-03] MEDS: DULoxetine 30 MG Cap PO SCH ×2 (09:22→20:36)
[2018-01-03] MEDS: Mupirocin Oint 22 GM Tube TOP SCH ×2 (09:30→20:38)
[2018-01-03] MEDS: VERIFY FENT PATCH TOP SCH ×2 (09:32→20:54)
[2018-01-03] MEDS: fentaNYL 25 MCG/HR Transdermal Patch TRDERM SCH (11:20)
[2018-01-03] MEDS: Furosemide 20 MG Tab PO SCH (11:21)
[2018-01-03] MEDS: Pantoprazole 40 MG Tab.CR PO SCH (20:36)
[2018-01-03] MEDS: Tamsulosin 0.4 MG Cap.ER PO SCH (20:36)
[2018-01-03] MEDS: ALPRAZolam 0.5 MG Tab PO SCH (20:52)
[2018-01-04] MEDS: oxyCODONE 5 MG Tab PO PRN ×2 (03:05→07:29)
[2018-01-04] MEDS: Propranolol 40 MG Tab PO SCH (03:09)
[2018-01-04] MEDS: Acetaminophen Soln 650 MG/20.3 ML UD Cup PO SCH ×2 (03:10→07:31)
[2018-01-04] MEDS: traMADol 50 MG Tab PO SCH (05:59)
[2018-01-04 08:07] VITALS: BP 121/65
--- NOTE | 2018-01-05 01:27 | DISCH ---
ADMISSION DIAGNOSES: 1. Elevated liver function tests. 2. Partial small bowel obstruction. 3. Postprandial abdominal pain. 4. Status post Giovany-en-Y gastric bypass surgery. 5. Chronic migraine headaches. 6. Environmental allergies. 7. Iron deficiency anemia. 8. History of acute respiratory failure. 9. Reactive hypoglycemia following gastrointestinal surgery. 10.Long-term use of opioid analgesic treatment. 11.Major depression. 12.Unspecified surgical malabsorption. 13.B12 deficiency. 14.Absent seizures. 15.Gastroesophageal reflux disease. DISCHARGE DIAGNOSES: 1. Exploratory laparotomy with lysis of adhesions, small bowel resection with revision of the JJ component of the Giovany-en-Y gastric bypass surgery, removal of intraperitoneal mesh, en bloc with adherent small bowel resection, rectosigmoid colon resection with coloproctostomy, resection of fused area mid abdominal viscera 5 cm, placement of Vicryl mesh and Tom-Cut needle liver biopsy for elevated liver function tests, small bowel obstruction involving JJ component of the Giovany-en-Y gastric bypass surgery, small bowel adherent intraperitoneal mesh, massive distortion of sigmoid colon associated with sigmoid colon volvulus, fascial mass midportion of abdominal mucosa. DATE OF SURGERY: 12/30/2017, Dr. Donaldo Ayon is surgeon. HISTORY: Dave Smith is a 47-year-old male with abdominal pain after preoperative evaluation and discussion of possible risks and possible complications, he wished to proceed with surgical procedure. HOSPITAL COURSE: Dave had his surgery on 12/30/2017. He had no operative complications. On postop day 1, vital signs were stable. Pain control was difficult to manage. A fentanyl patch was added as well as tramadol. He was started on a step-2 gastric bypass diet. On postop day 2, he remained afebrile. Oral intake was good. He was started on MiraLAX 119 g. On postop day 3, his Ponce catheter was removed, started on Flomax, senna Plus, and another dose of MiraLAX 119 g. On postop day 4, he started having bowel movements. Pain was better controlled. His activity was good, and he was able to be discharged on postop day 5. PHYSICAL EXAMINATION: GENERAL: Dave Smith is a 47-year-old male. Alert, orientated. VITAL SIGNS: Height is 6 feet, weight 189 pounds. TPR 97.7, 77, 16. Blood pressure 121/65. HEENT: Negative. NECK: Supple. HEART: Regular rate and rhythm. LUNGS: Clear. ABDOMEN: Stapled. Incisions good. ANGLEES drains have put out 850, 10 respectively, and abdominal binder has been on. EXTREMITIES: Without peripheral edema. DISPOSITION: Discharged to home. CONDITION: Stable and improving. FOLLOWUP APPOINTMENT: With Dr. Donaldo Ayon on 01/11/2018 with Donaldo Ayon MD at [facility]. HOME MEDICATIONS: 1. Tylenol 650 mg q.6 hours for 2 weeks. 2. Celebrex 200 mg p.o. daily, #14. 3. Duragesic 25 mcg patch, to remove on Tuesday01/06/2018. 4. Oxycodone 10 mg q.4 hours p.r.n. pain, #40. 5. Resume his home medications: a. Xanax 1 to 2 mg at bedtime p.r.n. anxiety. b. Precose 75 mg oral 3 times a day. c. Elavil 100 mg oral at bedtime. d. Calcium citrate 250 mg oral daily. e. Vitamin D3 5000 international units oral daily. f. Vitamin B12 1000 mcg IM every 3 weeks. g. Cymbalta 30 mg oral every evening. h. Cymbalta 60 mg every morning. i. Voltaren 1% gel one applicator to affected area 4 times a day. j. Vitamin D 50,000 International Units every Tuesday, Tuesday, and Tuesday. k. Folic acid 1 mg oral daily. l. Furosemide 20 mg oral daily. m. Gabapentin 600 mg oral 3 times a day. n. Multivitamin 1 capsule oral twice daily. o. Inderal 80 mg 3 times a day. p. Rizatriptan Benzoate 10 mg sublingual as directed for migraine headaches. q. Nasacort AQ spray 2 sprays inhaled daily. r. Vitamin B complex 1 daily before breakfast. s. Zinc 50 mg oral daily. t. BuSpar 15 mg 3 times a day p.r.n. u. He is to discontinue taking the tramadol while he is on the oxycodone. DIET AFTER DISCHARGE: Usual diet as tolerated. Drink 8 to 10 glasses of water a day. ACTIVITY: As tolerated. No lifting greater than 10 pounds for 6 weeks. DRIVING: Do not drive on pain medication. SHOWER/BATHING: May shower. INSTRUCTIONS: Notify provider if any fever, increased pain, nausea, or vomiting. Keep site clean and dry. Wear abdominal binder for 6 weeks and then as tolerated. SPECIAL INSTRUCTIONS: 1. Use incentive spirometer 10 times every hour while awake. 2. Take off fentanyl patch on Tuesday01/06/2018. 3. Strip empty measure and record ANGELES drain 4 times a day and bring record of drainage to clinic appointment.
--- NOTE | 2018-01-09 14:23 | OR ---
DATE OF PROCEDURE: 12/30/2017 PREOPERATIVE DIAGNOSES: 1. Partial small bowel obstruction. 2. Elevated liver function tests. POSTOPERATIVE DIAGNOSES: 1. Small bowel obstruction involving jejunojejunostomy component of the Giovany-en-Y gastric bypass. 2. Small bowel adherent to intraperitoneal mesh. 3. Massive distention of sigmoid colon associated with sigmoid colon volvulus. 4. Fascial mass in midportion of abdominal wall incision. 5. Elevated liver function tests. OPERATIVE PROCEDURES: Exploratory laparotomy with lysis of extensive adhesions and: 1. Small bowel resection with revision of jejunojejunostomy component of the Giovany-en-Y gastric bypass (20775). 2. Removal of intraperitoneal mesh en bloc with adherent small bowel (84305). 3. Additional small bowel resection (29224). 4. Rectosigmoid colon resection with coloproctostomy (56522). 5. Resection of fascial mass involving anterior abdominal wall incision (21343). 6. Placement of Vicryl mesh to limit recurrent adhesions between pelvic and abdominal wall and underlying viscera (31768). 7. Tom-Cut needle liver biopsy of left lobe of the liver (55239). ANESTHESIA: General. ASSISTANTS: 1. Shelby Rodriguez PA-C. 2. ZAHIRA Joyce. 3. ZAHIRA Summers. INDICATION FOR PROCEDURE: This is a 47-year-old presenting with postprandial abdominal cramping pain and general abdominal distention. He also was noted to have some elevation of the hepatocellular enzymes. Plan is to proceed with an exploratory laparotomy with bowel resection and/or lysis of adhesions as indicated, and other procedures as indicated by operative findings. Potential risks of the procedure including bleeding, infection, injury to underlying viscera, possible leaks from various GI tract closures, recurrent bowel obstruction over time as well as the possibility of cardiopulmonary, septic, or hemorrhagic complications leading to were discussed, and the patient wishes to proceed. DETAILS OF PROCEDURE: The patient was taken to the operating room and placed in a supine position. After general endotracheal anesthesia was induced, a Ponce catheter was inserted, and the abdomen was prepped and draped. Using continuous ultrasound, bilateral midabdominal transversus abdominis plane blocks were placed using standard solution. The previous midline incision was then reused. This was primarily an upper midline incision and carried down through the skin and subcutaneous tissue. In the midportion of the fascia, there was a firm mass affect present. To rule out this being neoplastic, this was excised and was measured around 5.5 to 6 cm, and it was a firm rubbery fibrotic lesion. This left otherwise an intact underlying fascia to which it had been attached. A fairly extensive lysis of adhesions was undertaken. The patient was noted to have the small bowel immediately adjacent to the jejunojejunostomy and the Giovany limb attached to some overlying mesh. This was fairly deserosalized and felt to be needed to be resected. This bowel was then divided flush with the jejunojejunostomy, and then proximal to the point where it had become adherent to the mesh, both with JACOB lisa and underlying mesentery divided with JACOB mesenteric loads. At that point, the mesh was removed from the abdominal wall as it, by definition, would be becoming contaminated with the bowel resection being required. Once this was removed, then the patient was noted to have one additional area of small bowel, which had been deserosalized and had been attached to the mesh. It looked like, we initially had to do a stricturoplasty-type procedure there, but it was felt on further evaluation to better be completed with a limited resection a few centimeters proximal or distal to that. The small bowel was divided with a JACOB stapler. The mesentery was divided as well with mesenteric loads. The bowel was then flipped up against itself and a side-to- side enteroenterostomy was accomplished with a sequence of 60-mm JACOB staple loads, angles anastomosed, and mesenteric defect was then approximated with some 3-0 Vicryl stitch. The jejunojejunostomy component of the Giovany-en-Y gastric bypass was then revised. The bowel had been divided just proximal to the jejunojejunostomy, where the Giovany limb entered that anastomosis, to facilitate some additional weight loss. We then moved the new jejunojejunostomy to a point 200 cm proximal to the ileocecal valve with the Giovany limb having been measured at this point to be at a 100, thus giving the patient a total alimentary length of 300 cm. The [id number]-st-[id number] anastomosis was again accomplished with the sequence of 60 mm JACOB lisa. The underlying mesenteric defect was then, in this case, closed with 2-0 silk stitch to provide some additional permanency and angles anastomosed. This was then reinforced with 3-0 Vicryl seromuscular stitch. One additional finding was that of a massively dilated sigmoid colon. This came up and occupied a large amount of the mid and upper abdomen. This was, at the time of examination, flipped over on itself, and there was a well-defined crease, where the colon chronically had been at least partially occluded indicating chronicity of the volvulus. The patient has quite a bit in the way of problems with constipation, and this may be contributing to that, and this would certainly be at risk for the patient to have future problems with acute abdomen related to the sigmoid volvulus. Given this, the sigmoid colon roughly at the junction of the mid and upper-thirds was divided with the JACOB stapler. We then went down at the point of the upper rectum and divided at that level with the JACOB stapler as well. The mesentery between those 2 points was divided with a combination of vascular mesenteric JACOB loads. The [id number] coloproctostomy was then accomplished with an internal firing of the JACOB stapler. This was done with a 60 mm griffin load and then a second internal firing with the 45 mm griffin load, thus creating somewhat larger anastomosis. The common opening was then closed with the purple load, angles anastomosed, and mesenteric defect approximated with some 3-0 Vicryl stitch. At this point, no further problems were noted in the abdomen. The patient had, what appeared to be, a fairly normal-appearing liver with spleen perhaps slightly enlarged, but otherwise smooth and not overly fatty infiltrated. Two Tom-Cut needle biopsies were obtained from the left lobe of the liver and bleeding from the biopsy sites was controlled with electrocautery. At this point, Asif-Collier drains were placed in the right and left abdomen and it was felt that the patient would be obviously at risk for significant adhesion recurrence between the pelvic and abdominal wall and underlying viscera. A 12-inch Vicryl mesh was then placed behind the urinary bladder along the pelvic sidewalls and up against the abdominal wall. Over this, then the incision was closed with a #2 Vicryl stitch at the fascia level. A 10- Croatian round Asif-Collier drain was then placed through a stab wound beneath the incision. The subcutaneous tissue along this incision was approximated with 2 layers of 3-0 Vicryl stitch and the skin with lisa. The drain was affixed with 3-0 Vicryl stitch as well. The patient was taken to the recovery room in a satisfactory condition. Physician program assistant, Shelby Rodriguez, played an essential role in assisting in this case, helping to position the patient, retract structures as needed, as well as suturing and cutting sutures when indicated. Her presence improved patient safety and decreased the operative time. Donaldo Ayon MD /[id number]
== END 2018-01-04 10:30 | disposition home or self-care (01) | DRG 336 ==
LOC: JP.SDS 11:12 → JP.ICU 18:00 → JP.2SS 01-01 21:16
PROVIDERS: ADMIT Surgery; ATTEND Surgery
PROC: 0DBA0ZX Excision of Jejunum, Open Approach, Diagnostic (ICD-10-PCS; principal; 2017-12-30)
PROC: 0DNW0ZZ Release Peritoneum, Open Approach (ICD-10-PCS; 2017-12-30)
PROC: 0WPF0JZ Removal of Synthetic Substitute from Abdominal Wall, Open Approach (ICD-10-PCS; 2017-12-30)
PROC: 0DB80ZX Excision of Small Intestine, Open Approach, Diagnostic (ICD-10-PCS; 2017-12-30)
PROC: 0DBP0ZX Excision of Rectum, Open Approach, Diagnostic (ICD-10-PCS; 2017-12-30)
PROC: 0DBN0ZX Excision of Sigmoid Colon, Open Approach, Diagnostic (ICD-10-PCS; 2017-12-30)
PROC: 0FB20ZX Excision of Left Lobe Liver, Open Approach, Diagnostic (ICD-10-PCS; 2017-12-30)
PROC: 3E0T3BZ Introduction of Anesthetic Agent into Peripheral Nerves and Plexi, Percutaneous Approach (ICD-10-PCS; 2017-12-30)
PROC: 3E0M05Z Introduction of Adhesion Barrier into Peritoneal Cavity, Open Approach (ICD-10-PCS; 2017-12-30)
DX: K56.600 Partial intestinal obstruction, unspecified as to cause (principal); K91.2 Postsurgical malabsorption, not elsewhere classified; K56.2 Volvulus; K63.89 Other specified diseases of intestine; K66.0 Peritoneal adhesions (postprocedural) (postinfection); M62.89 Other specified disorders of muscle; R79.89 Other specified abnormal findings of blood chemistry; F17.210 Nicotine dependence, cigarettes, uncomplicated; E55.9 Vitamin D deficiency, unspecified; E53.8 Deficiency of other specified B group vitamins; Z98.84 Bariatric surgery status; R33.8 Other retention of urine; Z98.0 Intestinal bypass and anastomosis status; G43.909 Migraine, unspecified, not intractable, without status migrainosus; D50.9 Iron deficiency anemia, unspecified; Z79.891 Long term (current) use of opiate analgesic; K21.9 Gastro-esophageal reflux disease without esophagitis; Z91.048 Other nonmedicinal substance allergy status
CPT/HCPCS: 36415; 74240; 74240-26; 80048; 83735; 84100; 85027; 88305; 88307; 88313; 94762; A9270-GY; C1781; C9113; J0171; J0694; J1100; J1170; J1200; J1644; J2060; J2175; J2185; J2405; J2704; J2710; J2795; J2930; J3010; J3410; J3411; J3420; J7042; J7050; Q9967

== ENCOUNTER 2018-02-01 10:36 | Inpatient (IN) | payer MEDICAID ==
[2018-02-01] MEDS: Dextrose 5%-Lactated Ringers 1,000 ML IV SCH ×2 (11:56→18:51)
[2018-02-01] MEDS ORDERED: Pantoprazole 40 MG Vial IV SCH (13:00)
--- NOTE | 2018-02-01 13:16 | CT ---
Abdomen pelvis CT. History: Evaluate for partial small bowel obstruction. Technique: Unenhanced axial images were obtained from the lung bases extending through the abdomen an d pelvis. Coronal images were reconstructed. Total DLP: 623. Comparison: 28 December 2017. Findings: There are postsurgical changes consistent with a prior Giovany-en-Y gastric bypass. There surg ical clips in the right mid and lower aspects of the abdomen. There is no significant large or small bowel distention. There is a large amount of retained stool within the distal colon. There is no free air or free fluid. The appendix is unremarkable. The lower lung stone are unremarkable. The liver, pancreas, spleen are stable. The kidneys demonstra te no stones or hydronephrosis. Impression: 1. Postsurgical changes of the abdomen. Prior gastric bypass procedure. No complications are evident. There are no findings of obstruction. 2. Large amount of retained stool within the colon.
[2018-02-01] MEDS ORDERED: Sodium Chloride 0.9% 10 ML Syringe FLUSH PRN (13:38)
[2018-02-01] MEDS ORDERED: Rizatriptan 10 MG Tab.DIS PO PRN (14:01)
[2018-02-01] MEDS: traMADol 50 MG Tab PO PRN (14:39)
[2018-02-01] MEDS ORDERED: Polyethylene Glycol 3350 Powder 119 GM Bottle PO ONE (15:00)
[2018-02-01] MEDS: Diclofenac Sodium 1% Gel 100 GM Tube TOP SCH ×2 (15:25→21:39)
[2018-02-01] MEDS: DULoxetine 30 MG Cap PO SCH (17:11)
[2018-02-01] MEDS: Calcium Carbonate/Vitamin D3 1500 MG-400 Units Tab PO SCH (17:14)
[2018-02-01] MEDS: Gabapentin 300 MG Cap PO SCH ×2 (17:15→22:48)
[2018-02-01] MEDS ORDERED: HYDROmorphone/Normal Saline 15 MG/30 ML PCA IV SCH (18:30)
[2018-02-01] MEDS ORDERED: diphenhydrAMINE 50 MG/ML SDV IVPUSH PRN (21:05)
[2018-02-01] MEDS: LORazepam 2 MG/ML SDV IVPUSH PRN (21:29)
[2018-02-01] MEDS: busPIRone 5 MG Tab PO SCH (21:37)
[2018-02-01] MEDS: Propranolol 40 MG Tab PO SCH (21:38)
[2018-02-01] MEDS: Multivitamins with Iron/Calcium/Folic Acid/Minerals Tab PO SCH (21:38)
[2018-02-01] MEDS: Fluticasone Propionate Nasal Spray 16 GM Bottle NASBOTH SCH (21:39)
[2018-02-02] MEDS: Dextrose 5%-Lactated Ringers 1,000 ML IV SCH ×3 (01:25→20:39)
[2018-02-02] MEDS: Diclofenac Sodium 1% Gel 100 GM Tube TOP SCH ×4 (06:17→21:04)
[2018-02-02] MEDS ORDERED: Tamsulosin 0.4 MG Cap.ER PO STA (06:44)
[2018-02-02] MEDS ORDERED: Naloxone 0.4 MG/ML SDV IV PRN (07:06)
[2018-02-02] MEDS ORDERED: HYDROmorphone/Normal Saline 15 MG/30 ML PCA IV PRN (07:06)
[2018-02-02] MEDS ORDERED: diphenhydrAMINE 25 MG Cap PO PRN (07:09)
[2018-02-02] MEDS ORDERED: Lidocaine 2% Jelly 10 ML Urojet MUCMEM ONE (07:30)
[2018-02-02] MEDS: Naloxegol Oxalate 25 MG Tab PO SCH (07:36)
[2018-02-02] MEDS: Vitamin B Complex Tab PO SCH (07:36)
--- NOTE | 2018-02-02 07:50 | PCM.HP ---
H&P History of Present Illness - General Date of Service: 02/01/18 Admit Problem/Dx: Admission Diagnosis/Problem Admission Diagnosis/Problem Partial small bowel obstruction Source of Information: Patient History Limitations: Reports: Other (Poor memory due to TBI. Mrs. Smith is here to help him. ) - History of Present Illness Initial Comments - Free Text/Narative: Panda reports that since he had surgery the end of December he has had problems with his bowels. He first had diarrhea non stop for a couple of days then he has been battling with constipation. He gets constipated takes a laxative then gets diarrhea. Affects his appetite. He states he has tried Dulcolax, Miralax, Magnesium Citrate and opened a new bottle of Linzess and nothing has helped. He gets crampy and bloated. Abdominal pressure he states can get up to a 8/10 on a pain scale. Pain is generalized in all 4 abdominal quadrants. Onset of Symptoms: Reports: Gradual Duration of Symptoms: Reports: Week(s):, Getting Worse Severity: Moderate Improves with: Reports: None Worsens with: Reports: None Context: Reports: Sick Contact Associated Symptoms: Reports: Loss of Appetite, Nausea/Vomiting, Weakness Abdomen, Joints Pain Score (Numeric/FACES): 5 - Related Data Allergies/Adverse Reactions: Allergies Allergy/AdvReac Type Severity Reaction Status Date / Time Iodinated Contrast- Oral and Allergy Unknown Itching Verified 12/30/17 11:41 IV Dye [Iodinated Contrast Media - IV Dye] iohexol [From Omnipaque 140] Allergy Unknown unknown Verified 12/30/17 11:41 morphine Allergy Unknown Itching Verified 12/30/17 11:41 adhesive tape Allergy Blisters Verified 12/30/17 11:41 oxycodone [From Percocet] Allergy Itching Verified 12/30/17 11:41 surgical lisa Allergy Blisters Uncoded 12/30/17 11:41 Home Medications: Home Meds Acarbose [Precose] 75 mg PO TIDMEALS 11/21/13 [History] Cholecalciferol (Vitamin D3) [Vitamin D3] 5,000 units PO DAILY 11/21/13 [History ] Diclofenac Sodium [Voltaren 1% Gel] 1 applic TP QID 11/21/13 [History] Multivitamin [Multivitamins] 1 cap PO BID 11/21/13 [History] Propranolol [Inderal] 80 mg PO TID 11/21/13 [History] Vitamin B Complex 1 each PO ACBREAKFAST 11/21/13 [History] Rizatriptan Benzoate [Rizatriptan] 10 mg SL ASDIRECTED PRN 01/16/15 [History] Triamcinolone Acetonide [Nasacort AQ [place]] 2 sprays INH BEDTIME 01/16/15 [ History] Gabapentin [Neurontin] 600 mg PO TID 07/02/16 [History] Calcium Citrate 250 mg PO QPM 10/09/16 [History] Cyanocobalamin (Vitamin B-12) [Cyanocobalamin Injection] 1,000 mcg IJ .[id number] 10/06/17 [History] DULoxetine HCl [Duloxetine HCl] 60 mg PO QAM 10/06/17 [History] Folic Acid 1 mg PO DAILY 10/06/17 [History] Zinc Gluconate [Zinc] 50 mg PO DAILY 10/06/17 [History] busPIRone [Buspar] 15 mg PO TID 10/06/17 [History] ALPRAZolam [Xanax] 1 - 2 mg PO BEDTIME PRN 12/28/17 [History] DULoxetine HCl [Cymbalta] 30 mg PO QPM 12/28/17 [History] Ergocalciferol (Vitamin D2) [Vitamin D2] 50,000 unit PO MOWEFR 12/28/17 [History ] oxyCODONE 10 mg PO Q4H PRN #40 tablet 01/04/18 [Rx] Amitriptyline HCl 150 mg PO BEDTIME 02/01/18 [History] traMADol [Ultram] 50 mg PO Q4H PRN 02/01/18 [History] Past Medical History HEENT History: Reports: Allergic Rhinitis, Impaired Vision Other HEENT History: wears glasses, sensitive to light Cardiovascular History: Reports: Syncope Respiratory History: Reports: Intubation, Previous Gastrointestinal History: Reports: Bowel Obstruction, Cholelithiasis, Chronic Constipation, GERD Genitourinary History: Reports: Renal Calculus Musculoskeletal History: Reports: Back Pain, Chronic, Fibromyalgia, Osteoarthritis Other Musculoskeletal History: arthritis Neurological History: Reports: Concussion, Headaches, Chronic, Head Trauma, Migraines Other Neuro History: mid-line shift Psychiatric History: Reports: Antisocial Behaviors, Anxiety, Depression, Emotional Problems, PTSD, Other (See Below) Other Psychiatric History: tbi 4 years ago Endocrine/Metabolic History: Reports: None, Other (See Below) Other Endocrine/Metabolic History: hypoglycemia Hematologic History: Reports: Anemia, B12 Deficiency, Iron Deficiency Dermatologic History: Reports: Other (See Below) Other Dermatologic History: itching from contrast dye - Infectious Disease History Infectious Disease History: Reports: Chicken Pox - Past Surgical History HEENT Surgical History: Reports: LASIK Cardiovascular Surgical History: Reports: None Respiratory Surgical History: Reports: None GI Surgical History: Reports: Bariatric Procedure, Cholecystectomy, EGD, Hernia , Abdominal, Lysis of Adhesions, Small Bowel, Other (See Below) Other GI Surgeries/Procedures: revision of gastric bypass; panniculectomy; removal of gastric bypass scar tissue Endocrine Surgical History: Reports: None Neurological Surgical History: Reports: None Musculoskeletal Surgical History: Reports: None Social & Family History - Family History Family Medical History: Noncontributory Cardiac: Reports: MA - Tobacco Use Smoking Status *Q: Current Every Day Smoker Years of Tobacco use: 20 Packs/Tins Daily: 0.2 Used Tobacco, but Quit: No - Caffeine Use Caffeine Use: Reports: Coffee, Energy Drinks - Recreational Drug Use Recreational Drug Use: No H&P Review of Systems - Review of Systems: Review Of Systems: See Below General: Reports: Weakness, Fatigue, Decreased Appetite, Weight Loss HEENT: Reports: No Symptoms Pulmonary: Reports: No Symptoms Cardiovascular: Reports: No Symptoms Gastrointestinal: Reports: Abdominal Pain, Constipation, Decreased Appetite, Distension, Flatus, Nausea Genitourinary: Reports: No Symptoms Musculoskeletal: Reports: Other (chronic pain ) Skin: Reports: No Symptoms Psychiatric: Reports: Depression, Anxiety, Other (history of TBI ) Neurological: Reports: Weakness Hematologic/Lymphatic: Reports: No Symptoms Immunologic: Reports: No Symptoms Exam - Exam Exam: See Below - Vital Signs Vital Signs: Last Vital Signs Temp 97.5 F 02/02/18 03:00 Pulse 92 02/02/18 03:00 Resp 7 L 02/02/18 03:00 BP 119/64 02/02/18 03:00 Pulse Ox 92 L 02/02/18 07:23 Weight: 173 lb - Exam General: Moderate Distress HEENT: PERRLA Neck: Supple, Trachea Midline Lungs: Clear to Auscultation, Normal Respiratory Effort Cardiovascular: Regular Rate, Regular Rhythm GI/Abdominal Exam: Distended, Guarding, Tender, Abnormal Bowel Sounds (Male) Exam: Deferred Rectal (Males) Exam: Deferred Back Exam: Normal Inspection, Full Range of Motion Extremities: Normal Inspection, Normal Range of Motion Skin: Warm, Dry, Intact Neurological: Cranial Nerves Intact, Reflexes Equal Bilateral Neuro Extensive - Mental Status: Alert, Oriented x3, Other (Fair historian on history of present illness. Mrs. Smith is here to help with history. ) Neuro Extensive - Motor, Sensory, Reflexes: CN II-XII Intact, Expressive Aphasia , Abnormal Motor (walks with a cane ) Psychiatric: Alert, Labile Mood - Patient Data Lab Results Last 24 hrs: Laboratory Results - last 24 hr 02/01/18 02/01/18 Range/Units 12:01 12:01 WBC 7.3 (4.5-11.0) K/uL RBC 4.83 (4.30-5.90) M/uL Hgb 15.1 H (12.0-15.0) g/dL Hct 43.7 (40.0-54.0) % MCV 91 (80-98) fL MCH 31 (27-31) pg MCHC 35 (32-36) % Plt Count 172 (150-400) K/uL Sodium 140 (140-148) mmol/L Potassium 3.9 (3.6-5.2) mmol/L Chloride 105 (100-108) mmol/L Carbon Dioxide 28 (21-32) mmol/L Anion Gap 7.1 (5.0-14.0) mmol/L BUN 18 (7-18) mg/dL Creatinine 0.7 L (0.8-1.3) mg/dL Est Cr Clr Drug Dosing 146.27 mL/min Estimated GFR (MDRD) > 60 (>60) Glucose 95 (74-106) mg/dL Calcium 8.2 L (8.5-10.1) mg/dL Phosphorus 3.9 (2.5-4.9) mg/dL Magnesium 1.9 (1.8-2.4) mg/dL Ferritin 30 (8-388) ng/ml Total Bilirubin 0.4 (0.2-1.0) mg/dL AST 35 (15-37) U/L ALT 65 (12-78) U/L Alkaline Phosphatase 108 (46-116) U/L Total Protein 6.2 L (6.4-8.2) g/dL Albumin 3.2 L (3.4-5.0) g/dL Globulin 3.0 (2.3-3.5) g/dL Albumin/Globulin Ratio 1.1 L (1.2-2.2) Result Diagrams: 02/01/18 12:01 02/01/18 12:01 - Problem List (1) Partial small bowel obstruction SNOMED Code(s): 167713852 ICD Code: K56.600 - PARTIAL INTESTINAL OBSTRUCTION, UNSPECIFIED TO CAUSE Status: Acute Current Visit: Yes Problem List Initiated/Reviewed/Updated: Yes Orders Last 24hrs: Active Orders 24 hr Category Date Time Status Patient Status [ADT] Routine ADT 02/01/18 10:30 Active Ambulate [RC] QID Care 02/01/18 11:33 Active Insert [place] Catheter [Insert Urinary Catheter] [OM.PC] Care 02/02/18 07:00 Ordered Q24H Oxygen Therapy [RC] PRN Care 02/01/18 11:33 Active Up to Chair [RC] QID Care 02/01/18 11:33 Active Urinary Catheter Assessment [RC] ASDIRECTED Care 02/02/18 06:47 Active VTE/DVT Education [RC] Per Unit Routine Care 02/01/18 11:33 Active Vital Signs [RC] Q4H Care 02/01/18 11:33 Active Bariatric Diet [DIET] Diet 02/01/18 Dinner Active Bariatric Diet [DIET] Diet 02/01/18 Lunch Active Abdomen 2V AP Flat Upright [CR] DAILY Exams 02/03/18 04:00 Ordered Abdomen 2V AP Flat Upright [CR] DAILY Exams 02/04/18 04:00 Ordered Abdomen 2V AP Flat Upright [CR] DAILY Exams 02/05/18 04:00 Ordered Abdomen 2V AP Flat Upright [CR] DAILY Exams 02/06/18 04:00 Ordered Abdomen 2V AP Flat Upright [CR] DAILY Exams 02/07/18 04:00 Ordered ALPRAZolam [Xanax] Med 02/01/18 14:01 Active 1 - 2 mg PO BEDTIME PRN Acarbose [Precose] Med 02/01/18 17:00 Active 75 mg PO TIDMEALS Amitriptyline [Elavil] Med 02/01/18 21:00 Active 150 mg PO BEDTIME Bisacodyl [Dulcolax] Med 02/02/18 09:00 Once 10 mg PO ONETIME ONE Bisacodyl [Dulcolax] Med 02/02/18 20:00 Once 10 mg PO ONETIME ONE Calcium Carbonate/Vitamin D3 [Caltrate 600+D 1500 MG- Med 02/01/18 17:00 Active 400 Units] 1 tab PO QPM Cholecalciferol (Vitamin D3) [Vitamin D3] Med 02/02/18 09:00 Active 5,000 units PO DAILY DULoxetine [Cymbalta] Med 02/01/18 17:00 Active 30 mg PO QPM DULoxetine [Cymbalta] Med 02/02/18 09:00 Active 60 mg PO QAM Dextrose 5%-Lactated Ringers 1,000 ml Med 02/01/18 12:00 Active IV ASDIRECTED Diclofenac Sodium [Voltaren 1% Gel] Med 02/01/18 16:00 Active 0 gm TOP QID Docusate Sodium/Sennosides [Senna Plus] Med 02/03/18 09:00 Active 2 tab PO BID Fluticasone Propionate [Flonase] Med 02/01/18 21:00 Active 0 gm NASBOTH BEDTIME Folic Acid Med 02/02/18 09:00 Active 1 mg PO DAILY Gabapentin [Neurontin] Med 02/01/18 21:00 Active 600 mg PO TID HYDROmorphone/Normal Saline [Dilaudid PAEDIATRIC THORACIC PHYSICIAN 15 MG in NS Med 02/02/18 07:06 Active 30 ML] 0 mg IV ASDIRECTED PRN LORazepam [Ativan] Med 02/01/18 21:04 Active 1 mg IVPUSH Q2H PRN Multivitamins w-Iron/Ca/FA/Min [Thera M Plus] Med 02/01/18 21:00 Active 1 tab PO BID Naloxegol Oxalate [Movantik] Med 02/02/18 07:30 Active 25 mg PO ACBREAKFAST Naloxone [Narcan] Med 02/02/18 07:06 Active 0.1 mg IV ASDIRECTED PRN Pantoprazole [ProTONIX] Med 02/02/18 13:00 Active 40 mg PO Q24H Polyethylene Glycol 3350 [MiraLAX] Med 02/02/18 12:00 Once 238 gm PO ONETIME ONE Propranolol [Inderal] Med 02/01/18 21:00 Active 80 mg PO TID Rizatriptan [Maxalt PATTERN CLEANER] Med 02/01/18 14:01 Active 10 mg PO ASDIRECTED PRN Sodium Chloride 0.9% [Saline Flush] Med 02/01/18 13:38 Active 10 ml FLUSH ASDIRECTED PRN Tamsulosin [Flomax] Med 02/02/18 21:00 Active 0.4 mg PO BEDTIME Vitamin B Complex Med 02/02/18 07:30 Active 1 each PO ACBREAKFAST Zinc Gluconate [Zinc] Med 02/02/18 09:00 Active 50 mg PO DAILY busPIRone [Buspar] Med 02/01/18 21:00 Active 15 mg PO TID diphenhydrAMINE [Benadryl] Med 02/01/18 21:05 Active 25 - 50 mg IVPUSH Q4H PRN diphenhydrAMINE [Benadryl] Med 02/02/18 07:09 Active 25 - 50 mg PO Q4H PRN traMADol [Ultram] Med 02/01/18 14:01 Active 50 mg PO Q4H PRN Sequential Compression Device [OM.PC] Routine Oth 02/01/18 11:49 Ordered Resuscitation Status Routine Resus Stat 02/01/18 11:33 Ordered Medication Orders Acarbose (Precose) 75 mg PO TIDMEALS [facility] Last Admin: 02/02/18 07:36 Dose: 75 mg Admin: 02/01/18 18:57 Dose: Not Given Alprazolam (Xanax) 1 - 2 mg PO BEDTIME PRN PRN Reason: Anxiety Amitriptyline HCl (Elavil) 150 mg PO BEDTIME [facility] Last Admin: 02/01/18 21:38 Dose: 150 mg Bisacodyl (Dulcolax) 10 mg PO ONETIME ONE Stop: 02/02/18 09:01 Bisacodyl (Dulcolax) 10 mg PO ONETIME ONE Stop: 02/02/18 20:01 Buspirone HCl (Buspar) 15 mg PO TID [facility] Last Admin: 02/01/18 21:37 Dose: 15 mg Calcium Carbonate (Caltrate 600+D 1500 Mg-400 Units) 1 tab PO QPM [facility] Last Admin: 02/01/18 17:14 Dose: 1 tab Cholecalciferol (Vitamin D3) 5,000 units PO DAILY [facility] Diclofenac Sodium (Voltaren 1% Gel) 0 gm TOP QID [facility] Last Admin: 02/02/18 06:17 Dose: Not Given Admin: 02/01/18 21:39 Dose: Not Given Admin: 02/01/18 15:25 Dose: Not Given Diphenhydramine HCl (Benadryl) 25 - 50 mg IVPUSH Q4H PRN PRN Reason: Itching Diphenhydramine HCl (Benadryl) 25 - 50 mg PO Q4H PRN PRN Reason: Itching Duloxetine HCl (Cymbalta) 30 mg PO QPM [facility] Last Admin: 02/01/18 17:11 Dose: 30 mg Duloxetine HCl (Cymbalta) 60 mg PO QAM [facility] Fluticasone Propionate (Flonase) 0 gm NASBOTH BEDTIME [facility] Last Admin: 02/01/18 21:39 Dose: 2 spray Folic Acid (Folic Acid) 1 mg PO DAILY [facility] Gabapentin (Neurontin) 600 mg PO TID [facility] Last Admin: 02/01/18 22:48 Dose: 600 mg Admin: 02/01/18 17:15 Dose: 600 mg Hydromorphone HCl (Dilaudid Breastfeeding Program Coordinator 15 Mg In Ns 30 Ml) 0 mg IV ASDIRECTED PRN; Protocol PRN Reason: PAIN Last Admin: 02/02/18 07:29 Dose: 15 mg Dextrose/Lactated Ringer's (Dextrose 5%-Lactated Ringers) 1,000 mls @ 150 mls/ hr IV ASDIRECTED [facility] Last Admin: 02/02/18 07:24 Dose: 150 mls/hr Infusion: 02/02/18 07:24 Dose: 150 mls/hr Admin: 02/02/18 01:25 Dose: 150 mls/hr Infusion: 02/02/18 01:25 Dose: 150 mls/hr Admin: 02/01/18 18:51 Dose: 150 mls/hr Infusion: 02/01/18 18:37 Dose: 150 mls/hr Admin: 02/01/18 11:56 Dose: 150 mls/hr Lorazepam (Ativan) 1 mg IVPUSH Q2H PRN PRN Reason: nausea Last Admin: 02/01/18 21:29 Dose: 1 mg Multivitamins/Minerals (Thera M Plus) 1 tab PO BID [facility] Last Admin: 02/01/18 21:38 Dose: 1 tab Naloxone HCl (Narcan) 0.1 mg IV ASDIRECTED PRN PRN Reason: decreased respiratory rate (Zinc Gluconate [ (Zinc] 50 Mg)*Pom*) 50 mg PO DAILY [facility] Pantoprazole Sodium (Protonix) 40 mg PO Q24H [facility] Polyethylene Glycol (Miralax) 238 gm PO ONETIME ONE Stop: 02/02/18 12:01 Propranolol HCl (Inderal) 80 mg PO TID [facility] Last Admin: 02/01/18 21:38 Dose: 80 mg Rizatriptan Benzoate (Maxalt Bailing Machine Operator) 10 mg PO ASDIRECTED PRN PRN Reason: migraines Senna/Docusate Sodium (Senna Plus) 2 tab PO BID [facility] Sodium Chloride (Saline Flush) 10 ml FLUSH ASDIRECTED PRN PRN Reason: Keep Vein Open Last Admin: 02/01/18 13:41 Dose: 10 ml Tamsulosin HCl (Flomax) 0.4 mg PO BEDTIME [facility] Tramadol HCl (Ultram) 50 mg PO Q4H PRN PRN Reason: Pain Last Admin: 02/01/18 14:39 Dose: 50 mg Vitamin B Complex (Vitamin B Complex) 1 each PO ACBREAKFAST [facility] Last Admin: 02/02/18 07:36 Dose: 1 each Assessment/Plan Comment:: Partial Small Bowel Obstruction Plan: Admit to Inpatient Plan of hospitalization 3 nights and 2 days. See copy of orders in [facility] [place] 02/01/18
--- NOTE | 2018-02-02 08:06 | PCM.SURGPN ---
- General Info Date of Service: 02/02/18 Functional Status: Reports: Pain Controlled, Tolerating Diet - Review of Systems General: Reports: Weakness, Fatigue HEENT: Reports: No Symptoms Pulmonary: Reports: No Symptoms Cardiovascular: Reports: No Symptoms Gastrointestinal: Reports: Abdominal Pain, Constipation, Flatus, Nausea, Other ( 2 BMs since admission after taking Miralax 119 grams. ) Genitourinary: Reports: Retention (unable to void. Bladder scan showed residual of 674 mls of urine. ) Musculoskeletal: Reports: Joint Pain Skin: Reports: Pruritis Neurological: Reports: Headache Psychiatric: Reports: No Symptoms - Patient Data Vitals - Most Recent: Last Vital Signs Temp 97.5 F 02/02/18 03:00 Pulse 92 02/02/18 03:00 Resp 7 L 02/02/18 03:00 BP 119/64 02/02/18 03:00 Pulse Ox 92 L 02/02/18 07:23 Weight - Most Recent: 173 lb I&O - Last 24 Hours: Intake & Output 02/01/18 02/02/18 02/02/18 22:59 06:59 14:59 Intake Total 1520 1115 Balance 1520 1115 Lab Results Last 24 Hrs: Laboratory Results - last 24 hr 02/01/18 02/01/18 Range/Units 12:01 12:01 WBC 7.3 (4.5-11.0) K/uL RBC 4.83 (4.30-5.90) M/uL Hgb 15.1 H (12.0-15.0) g/dL Hct 43.7 (40.0-54.0) % MCV 91 (80-98) fL MCH 31 (27-31) pg MCHC 35 (32-36) % Plt Count 172 (150-400) K/uL Sodium 140 (140-148) mmol/L Potassium 3.9 (3.6-5.2) mmol/L Chloride 105 (100-108) mmol/L Carbon Dioxide 28 (21-32) mmol/L Anion Gap 7.1 (5.0-14.0) mmol/L BUN 18 (7-18) mg/dL Creatinine 0.7 L (0.8-1.3) mg/dL Est Cr Clr Drug Dosing 146.27 mL/min Estimated GFR (MDRD) > 60 (>60) Glucose 95 (74-106) mg/dL Calcium 8.2 L (8.5-10.1) mg/dL Phosphorus 3.9 (2.5-4.9) mg/dL Magnesium 1.9 (1.8-2.4) mg/dL Ferritin 30 (8-388) ng/ml Total Bilirubin 0.4 (0.2-1.0) mg/dL AST 35 (15-37) U/L ALT 65 (12-78) U/L Alkaline Phosphatase 108 (46-116) U/L Total Protein 6.2 L (6.4-8.2) g/dL Albumin 3.2 L (3.4-5.0) g/dL Globulin 3.0 (2.3-3.5) g/dL Albumin/Globulin Ratio 1.1 L (1.2-2.2) Med Orders - Current: Current Medications Acarbose (Precose) 75 mg PO TIDMEALS [facility] Last Admin: 02/02/18 07:36 Dose: 75 mg Alprazolam (Xanax) 1 - 2 mg PO BEDTIME PRN PRN Reason: Anxiety Amitriptyline HCl (Elavil) 150 mg PO BEDTIME [facility] Last Admin: 02/01/18 21:38 Dose: 150 mg Bisacodyl (Dulcolax) 10 mg PO ONETIME ONE Stop: 02/02/18 09:01 Bisacodyl (Dulcolax) 10 mg PO ONETIME ONE Stop: 02/02/18 20:01 Buspirone HCl (Buspar) 15 mg PO TID [facility] Last Admin: 02/01/18 21:37 Dose: 15 mg Calcium Carbonate (Caltrate 600+D 1500 Mg-400 Units) 1 tab PO QPM [facility] Last Admin: 02/01/18 17:14 Dose: 1 tab Cholecalciferol (Vitamin D3) 5,000 units PO DAILY [facility] Diclofenac Sodium (Voltaren 1% Gel) 0 gm TOP QID [facility] Last Admin: 02/02/18 06:17 Dose: Not Given Diphenhydramine HCl (Benadryl) 25 - 50 mg IVPUSH Q4H PRN PRN Reason: Itching Diphenhydramine HCl (Benadryl) 25 - 50 mg PO Q4H PRN PRN Reason: Itching Duloxetine HCl (Cymbalta) 30 mg PO QPM [facility] Last Admin: 02/01/18 17:11 Dose: 30 mg Duloxetine HCl (Cymbalta) 60 mg PO QAM [facility] Fluticasone Propionate (Flonase) 0 gm NASBOTH BEDTIME [facility] Last Admin: 02/01/18 21:39 Dose: 2 spray Folic Acid (Folic Acid) 1 mg PO DAILY [facility] Gabapentin (Neurontin) 600 mg PO TID [facility] Last Admin: 02/01/18 22:48 Dose: 600 mg Hydromorphone HCl (Dilaudid [employer] Bonder 15 Mg In Ns 30 Ml) 0 mg IV ASDIRECTED PRN; Protocol PRN Reason: PAIN Last Admin: 02/02/18 07:29 Dose: 15 mg Dextrose/Lactated Ringer's (Dextrose 5%-Lactated Ringers) 1,000 mls @ 150 mls/ hr IV ASDIRECTED [facility] Last Admin: 02/02/18 07:24 Dose: 150 mls/hr Lorazepam (Ativan) 1 mg IVPUSH Q2H PRN PRN Reason: nausea Last Admin: 02/01/18 21:29 Dose: 1 mg Multivitamins/Minerals (Thera M Plus) 1 tab PO BID [facility] Last Admin: 02/01/18 21:38 Dose: 1 tab Naloxone HCl (Narcan) 0.1 mg IV ASDIRECTED PRN PRN Reason: decreased respiratory rate (Zinc Gluconate [ (Zinc] 50 Mg)*Pom*) 50 mg PO DAILY [facility] Pantoprazole Sodium (Protonix) 40 mg PO Q24H [facility] Polyethylene Glycol (Miralax) 238 gm PO ONETIME ONE Stop: 02/02/18 12:01 Propranolol HCl (Inderal) 80 mg PO TID [facility] Last Admin: 02/01/18 21:38 Dose: 80 mg Rizatriptan Benzoate (Maxalt Film Examiner) 10 mg PO ASDIRECTED PRN PRN Reason: migraines Senna/Docusate Sodium (Senna Plus) 2 tab PO BID [facility] Sodium Chloride (Saline Flush) 10 ml FLUSH ASDIRECTED PRN PRN Reason: Keep Vein Open Last Admin: 02/01/18 13:41 Dose: 10 ml Tamsulosin HCl (Flomax) 0.4 mg PO BEDTIME [facility] Tramadol HCl (Ultram) 50 mg PO Q4H PRN PRN Reason: Pain Last Admin: 02/01/18 14:39 Dose: 50 mg Vitamin B Complex (Vitamin B Complex) 1 each PO ACBREAKFAST [facility] Last Admin: 02/02/18 07:36 Dose: 1 each Discontinued Medications Hydromorphone HCl (Dilaudid [employer]ductor Bonder 15 Mg In Ns 30 Ml) 15 mg IV ASDIRECTED [facility]; Protocol Last Admin: 02/01/18 18:47 Dose: 15 mg Lidocaine HCl (Xylocaine 2% Jelly) 10 ml MUCMEM ONETIME ONE Stop: 02/02/18 07:31 Last Admin: 02/02/18 07:34 Dose: 10 ml Pantoprazole Sodium (Protonix Iv) 40 mg IV Q24H [facility] Last Admin: 02/01/18 13:36 Dose: 40 mg Polyethylene Glycol (Miralax) 119 gm PO ONETIME ONE Stop: 02/01/18 15:01 Last Admin: 02/01/18 15:25 Dose: 119 gm Tamsulosin HCl (Flomax) 0.4 mg PO ONETIME STA Stop: 02/02/18 06:45 Last Admin: 02/02/18 07:24 Dose: 0.4 mg - Problem List & Annotations (1) Partial small bowel obstruction SNOMED Code(s): 003096310 Code(s): K56.600 - PARTIAL INTESTINAL OBSTRUCTION, UNSPECIFIED TO CAUSE Status: Acute Current Visit: Yes - Problem List Review Problem List Initiated/Reviewed/Updated: Yes - My Orders Last 24 Hours: Active Orders 24 hr Category Date Time Status Patient Status [ADT] Routine ADT 02/01/18 10:30 Active Ambulate [RC] QID Care 02/01/18 11:33 Active Insert Ponce Catheter [Insert Urinary Catheter] [OM.PC] Care 02/02/18 07:00 Ordered Q24H Oxygen Therapy [RC] PRN Care 02/01/18 11:33 Active Up to Chair [RC] QID Care 02/01/18 11:33 Active Urinary Catheter Assessment [RC] ASDIRECTED Care 02/02/18 06:47 Active VTE/DVT Education [RC] Per Unit Routine Care 02/01/18 11:33 Active Vital Signs [RC] Q4H Care 02/01/18 11:33 Active Bariatric Diet [DIET] Diet 02/01/18 Dinner Active Bariatric Diet [DIET] Diet 02/01/18 Lunch Active Abdomen 2V AP Flat Upright [CR] DAILY Exams 02/03/18 04:00 Ordered Abdomen 2V AP Flat Upright [CR] DAILY Exams 02/04/18 04:00 Ordered Abdomen 2V AP Flat Upright [CR] DAILY Exams 02/05/18 04:00 Ordered Abdomen 2V AP Flat Upright [CR] DAILY Exams 02/06/18 04:00 Ordered Abdomen 2V AP Flat Upright [CR] DAILY Exams 02/07/18 04:00 Ordered ALPRAZolam [Xanax] Med 02/01/18 14:01 Active 1 - 2 mg PO BEDTIME PRN Acarbose [Precose] Med 02/01/18 17:00 Active 75 mg PO TIDMEALS Amitriptyline [Elavil] Med 02/01/18 21:00 Active 150 mg PO BEDTIME Bisacodyl [Dulcolax] Med 02/02/18 09:00 Once 10 mg PO ONETIME ONE Bisacodyl [Dulcolax] Med 02/02/18 20:00 Once 10 mg PO ONETIME ONE Calcium Carbonate/Vitamin D3 [Caltrate 600+D 1500 MG- Med 02/01/18 17:00 Active 400 Units] 1 tab PO QPM Cholecalciferol (Vitamin D3) [Vitamin D3] Med 02/02/18 09:00 Active 5,000 units PO DAILY DULoxetine [Cymbalta] Med 02/01/18 17:00 Active 30 mg PO QPM DULoxetine [Cymbalta] Med 02/02/18 09:00 Active 60 mg PO QAM Dextrose 5%-Lactated Ringers 1,000 ml Med 02/01/18 12:00 Active IV ASDIRECTED Diclofenac Sodium [Voltaren 1% Gel] Med 02/01/18 16:00 Active 0 gm TOP QID Docusate Sodium/Sennosides [Senna Plus] Med 02/03/18 09:00 Active 2 tab PO BID Fluticasone Propionate [Flonase] Med 02/01/18 21:00 Active 0 gm NASBOTH BEDTIME Folic Acid Med 02/02/18 09:00 Active 1 mg PO DAILY Gabapentin [Neurontin] Med 02/01/18 21:00 Active 600 mg PO TID HYDROmorphone/Normal Saline [Dilaudid P[employer]ER PRODUCTS PRINTER 15 MG in NS Med 02/02/18 07:06 Active 30 ML] 0 mg IV ASDIRECTED PRN LORazepam [Ativan] Med 02/01/18 21:04 Active 1 mg IVPUSH Q2H PRN Multivitamins w-Iron/Ca/FA/Min [Thera M Plus] Med 02/01/18 21:00 Active 1 tab PO BID Naloxegol Oxalate [Movantik] Med 02/02/18 07:30 Active 25 mg PO ACBREAKFAST Naloxone [Narcan] Med 02/02/18 07:06 Active 0.1 mg IV ASDIRECTED PRN Pantoprazole [ProTONIX] Med 02/02/18 13:00 Active 40 mg PO Q24H Polyethylene Glycol 3350 [MiraLAX] Med 02/02/18 12:00 Once 238 gm PO ONETIME ONE Propranolol [Inderal] Med 02/01/18 21:00 Active 80 mg PO TID Rizatriptan [Maxalt FISCAL ANALYST] Med 02/01/18 14:01 Active 10 mg PO ASDIRECTED PRN Sodium Chloride 0.9% [Saline Flush] Med 02/01/18 13:38 Active 10 ml FLUSH ASDIRECTED PRN Tamsulosin [Flomax] Med 02/02/18 21:00 Active 0.4 mg PO BEDTIME Vitamin B Complex Med 02/02/18 07:30 Active 1 each PO ACBREAKFAST Zinc Gluconate [Zinc] Med 02/02/18 09:00 Active 50 mg PO DAILY busPIRone [Buspar] Med 02/01/18 21:00 Active 15 mg PO TID diphenhydrAMINE [Benadryl] Med 02/01/18 21:05 Active 25 - 50 mg IVPUSH Q4H PRN diphenhydrAMINE [Benadryl] Med 02/02/18 07:09 Active 25 - 50 mg PO Q4H PRN traMADol [Ultram] Med 02/01/18 14:01 Active 50 mg PO Q4H PRN Sequential Compression Device [OM.PC] Routine Oth 02/01/18 11:49 Ordered Resuscitation Status Routine Resus Stat 02/01/18 11:33 Ordered Medication Orders Acarbose (Precose) 75 mg PO TIDMEALS [facility] Last Admin: 02/02/18 07:36 Dose: 75 mg Admin: 02/01/18 18:57 Dose: Not Given Alprazolam (Xanax) 1 - 2 mg PO BEDTIME PRN PRN Reason: Anxiety Amitriptyline HCl (Elavil) 150 mg PO BEDTIME [facility] Last Admin: 02/01/18 21:38 Dose: 150 mg Bisacodyl (Dulcolax) 10 mg PO ONETIME ONE Stop: 02/02/18 09:01 Bisacodyl (Dulcolax) 10 mg PO ONETIME ONE Stop: 02/02/18 20:01 Buspirone HCl (Buspar) 15 mg PO TID [facility] Last Admin: 02/01/18 21:37 Dose: 15 mg Calcium Carbonate (Caltrate 600+D 1500 Mg-400 Units) 1 tab PO QPM [facility] Last Admin: 02/01/18 17:14 Dose: 1 tab Cholecalciferol (Vitamin D3) 5,000 units PO DAILY [facility] Diclofenac Sodium (Voltaren 1% Gel) 0 gm TOP QID [facility] Last Admin: 02/02/18 06:17 Dose: Not Given Admin: 02/01/18 21:39 Dose: Not Given Admin: 02/01/18 15:25 Dose: Not Given Diphenhydramine HCl (Benadryl) 25 - 50 mg IVPUSH Q4H PRN PRN Reason: Itching Diphenhydramine HCl (Benadryl) 25 - 50 mg PO Q4H PRN PRN Reason: Itching Duloxetine HCl (Cymbalta) 30 mg PO QPM [facility] Last Admin: 02/01/18 17:11 Dose: 30 mg Duloxetine HCl (Cymbalta) 60 mg PO QAM [facility] Fluticasone Propionate (Flonase) 0 gm NASBOTH BEDTIME [facility] Last Admin: 02/01/18 21:39 Dose: 2 spray Folic Acid (Folic Acid) 1 mg PO DAILY [facility] Gabapentin (Neurontin) 600 mg PO TID [facility] Last Admin: 02/01/18 22:48 Dose: 600 mg Admin: 02/01/18 17:15 Dose: 600 mg Hydromorphone HCl (Dilaudid [employer] Bonder 15 Mg In Ns 30 Ml) 0 mg IV ASDIRECTED PRN; Protocol PRN Reason: PAIN Last Admin: 02/02/18 07:29 Dose: 15 mg Dextrose/Lactated Ringer's (Dextrose 5%-Lactated Ringers) 1,000 mls @ 150 mls/ hr IV ASDIRECTED [facility] Last Admin: 02/02/18 07:24 Dose: 150 mls/hr Infusion: 02/02/18 07:24 Dose: 150 mls/hr Admin: 02/02/18 01:25 Dose: 150 mls/hr Infusion: 02/02/18 01:25 Dose: 150 mls/hr Admin: 02/01/18 18:51 Dose: 150 mls/hr Infusion: 02/01/18 18:37 Dose: 150 mls/hr Admin: 02/01/18 11:56 Dose: 150 mls/hr Lorazepam (Ativan) 1 mg IVPUSH Q2H PRN PRN Reason: nausea Last Admin: 02/01/18 21:29 Dose: 1 mg Multivitamins/Minerals (Thera M Plus) 1 tab PO BID [facility] Last Admin: 02/01/18 21:38 Dose: 1 tab Naloxone HCl (Narcan) 0.1 mg IV ASDIRECTED PRN PRN Reason: decreased respiratory rate (Zinc Gluconate [ (Zinc] 50 Mg)*Pom*) 50 mg PO DAILY [facility] Pantoprazole Sodium (Protonix) 40 mg PO Q24H [facility] Polyethylene Glycol (Miralax) 238 gm PO ONETIME ONE Stop: 02/02/18 12:01 Propranolol HCl (Inderal) 80 mg PO TID [facility] Last Admin: 02/01/18 21:38 Dose: 80 mg Rizatriptan Benzoate (Maxalt Film Examiner) 10 mg PO ASDIRECTED PRN PRN Reason: migraines Senna/Docusate Sodium (Senna Plus) 2 tab PO BID [facility] Sodium Chloride (Saline Flush) 10 ml FLUSH ASDIRECTED PRN PRN Reason: Keep Vein Open Last Admin: 02/01/18 13:41 Dose: 10 ml Tamsulosin HCl (Flomax) 0.4 mg PO BEDTIME [facility] Tramadol HCl (Ultram) 50 mg PO Q4H PRN PRN Reason: Pain Last Admin: 02/01/18 14:39 Dose: 50 mg Vitamin B Complex (Vitamin B Complex) 1 each PO ACBREAKFAST [facility] Last Admin: 02/02/18 07:36 Dose: 1 each - Assessment Assessment (Free Text/Narrative):: Partial Small Bowel Obstruction Chronic Opiate Use Constipation Plan: Ponce Catheter Flomax 0.4 mg NOW Flomax 0.4 mg po every HS starting tonight Complete Colon Prep - mix in the least amount of Gator Kristen possible [place] - Naloxigol 25 mg po daily for chronic constipation Benadryl 25 - 50 mg po every 4 hours prn itching po Abdominal Flat and Upright Xrays daily Series to be done at 0400 Start Senna Plus 2 bid tomorrow Will evaluate prn or in am Shelby Aguilar 02/02/18
[2018-02-02] MEDS ORDERED: Lidocaine 2% Jelly 10 ML Urojet ONE (08:09)
[2018-02-02] MEDS ORDERED: Bisacodyl 5 MG Tab PO ONE ×2 (09:00→20:00)
[2018-02-02] MEDS: Propranolol 40 MG Tab PO SCH ×3 (09:25→20:46)
[2018-02-02] MEDS: busPIRone 5 MG Tab PO SCH ×3 (09:26→20:46)
[2018-02-02] MEDS: Gabapentin 300 MG Cap PO SCH ×3 (09:26→20:46)
[2018-02-02] MEDS: Folic Acid 1 MG Tab PO SCH (09:27)
[2018-02-02] MEDS: Multivitamins with Iron/Calcium/Folic Acid/Minerals Tab PO SCH ×2 (09:27→20:46)
[2018-02-02] MEDS: Cholecalciferol (Vitamin D3) 1,000 Unit Tab PO SCH (09:27)
[2018-02-02] MEDS: DULoxetine 30 MG Cap PO SCH ×2 (09:28→17:58)
[2018-02-02] MEDS ORDERED: Polyethylene Glycol 3350 Powder 238 GM Bot PO ONE (12:00)
[2018-02-02] MEDS: Pantoprazole 40 MG Tab.CR PO SCH (14:11)
[2018-02-02] MEDS: traMADol 50 MG Tab PO PRN (16:19)
[2018-02-02] MEDS: Calcium Carbonate/Vitamin D3 1500 MG-400 Units Tab PO SCH (17:59)
[2018-02-02] MEDS: HYDROmorphone 2 MG Tab PO PRN ×2 (19:28→23:38)
[2018-02-02] MEDS: ALPRAZolam 0.5 MG Tab PO PRN (20:42)
[2018-02-02] MEDS: Fluticasone Propionate Nasal Spray 16 GM Bottle NASBOTH SCH (20:46)
[2018-02-02] MEDS: Tamsulosin 0.4 MG Cap.ER PO SCH (20:46)
[2018-02-02] MEDS: LORazepam 2 MG/ML SDV IVPUSH PRN (23:38)
[2018-02-03] MEDS: traMADol 50 MG Tab PO PRN ×5 (02:15→20:40)
[2018-02-03] MEDS: Dextrose 5%-Lactated Ringers 1,000 ML IV SCH ×3 (03:26→18:09)
[2018-02-03] MEDS: HYDROmorphone 2 MG Tab PO PRN (04:28)
[2018-02-03] MEDS: Diclofenac Sodium 1% Gel 100 GM Tube TOP SCH ×4 (06:44→21:35)
[2018-02-03] MEDS ORDERED: Tamsulosin 0.4 MG Cap.ER PO ONE (07:30)
[2018-02-03] MEDS ORDERED: Polyethylene Glycol 3350 Powder 17 GM Packet PO ONE (07:30)
--- NOTE | 2018-02-03 07:56 | PCM.SURGPN ---
- General Info Date of Service: 02/03/18 Functional Status: Reports: Pain Controlled, Tolerating Diet Pain Score: 3 - Review of Systems General: Reports: No Symptoms HEENT: Reports: No Symptoms Pulmonary: Reports: No Symptoms Cardiovascular: Reports: No Symptoms Gastrointestinal: Reports: Abdominal Pain (cramping but has improved. ), Other ( has had 7 large BMs and is feeling a little bit better. ) Genitourinary: Reports: Retention (has had 3 doses of Flomax and dueñas will be discontinued today ) Musculoskeletal: Reports: Joint Pain Skin: Reports: Pruritis (but no rash - taking Benadryl and it is helping. ) Neurological: Reports: Headache, Weakness, Gait Disturbance, Other ( neurological symptoms are chronic - not related to this surgery ) Psychiatric: Reports: Depression, Anxiety Systems Review Comment:: Remainder Review of Systems negative for any other pertinent positive or negatives. - Patient Data Vitals - Most Recent: Last Vital Signs Temp 98.8 F 02/03/18 04:00 Pulse 77 02/03/18 04:00 Resp 18 02/03/18 04:00 BP 127/91 H 02/03/18 04:00 Pulse Ox 97 02/03/18 04:00 Weight - Most Recent: 172 lb 15.983 oz I&O - Last 24 Hours: Intake & Output 02/02/18 02/03/18 02/03/18 22:59 06:59 14:59 Intake Total 3335 1944 Output Total 500 350 Balance 2835 1594 Med Orders - Current: Current Medications Acarbose (Precose) 75 mg PO TIDMEALS [facility] Last Admin: 02/02/18 17:59 Dose: 75 mg Alprazolam (Xanax) 1 - 2 mg PO BEDTIME PRN PRN Reason: Anxiety Last Admin: 02/02/18 20:42 Dose: 2 mg Amitriptyline HCl (Elavil) 150 mg PO BEDTIME [facility] Last Admin: 02/02/18 20:46 Dose: 150 mg Buspirone HCl (Buspar) 15 mg PO TID [facility] Last Admin: 02/02/18 20:46 Dose: 15 mg Calcium Carbonate (Caltrate 600+D 1500 Mg-400 Units) 1 tab PO QPM [facility] Last Admin: 02/02/18 17:59 Dose: 1 tab Cholecalciferol (Vitamin D3) 5,000 units PO DAILY [facility] Last Admin: 02/02/18 09:27 Dose: 5,000 units Diclofenac Sodium (Voltaren 1% Gel) 0 gm TOP QID [facility] Last Admin: 02/03/18 06:44 Dose: Not Given Diphenhydramine HCl (Benadryl) 25 - 50 mg IVPUSH Q4H PRN PRN Reason: Itching Diphenhydramine HCl (Benadryl) 25 - 50 mg PO Q4H PRN PRN Reason: Itching Last Admin: 02/03/18 06:44 Dose: 25 mg Duloxetine HCl (Cymbalta) 30 mg PO QPM [facility] Last Admin: 02/02/18 17:58 Dose: 30 mg Duloxetine HCl (Cymbalta) 60 mg PO QAM [facility] Last Admin: 02/02/18 09:28 Dose: 60 mg Fluticasone Propionate (Flonase) 0 gm NASBOTH BEDTIME [facility] Last Admin: 02/02/18 20:46 Dose: 2 spray Folic Acid (Folic Acid) 1 mg PO DAILY [facility] Last Admin: 02/02/18 09:27 Dose: 1 mg Gabapentin (Neurontin) 600 mg PO TID [facility] Last Admin: 02/02/18 20:46 Dose: 600 mg Hydromorphone HCl (Dilaudid) 2 - 4 mg PO Q4H PRN PRN Reason: Pain Last Admin: 02/03/18 04:28 Dose: 4 mg Dextrose/Lactated Ringer's (Dextrose 5%-Lactated Ringers) 1,000 mls @ 150 mls/ hr IV ASDIRECTED [facility] Last Admin: 02/03/18 03:26 Dose: 150 mls/hr Lorazepam (Ativan) 1 mg IVPUSH Q2H PRN PRN Reason: nausea Last Admin: 02/02/18 23:38 Dose: 1 mg Multivitamins/Minerals (Thera M Plus) 1 tab PO BID [facility] Last Admin: 02/02/18 20:46 Dose: 1 tab Naloxone HCl (Narcan) 0.1 mg IV ASDIRECTED PRN PRN Reason: decreased respiratory rate (Zinc Gluconate [ (Zinc] 50 Mg)*Pom*) 50 mg PO DAILY [facility] Last Admin: 02/02/18 11:10 Dose: Not Given Pantoprazole Sodium (Protonix) 40 mg PO Q24H [facility] Last Admin: 02/02/18 14:11 Dose: 40 mg Propranolol HCl (Inderal) 80 mg PO TID [facility] Last Admin: 02/02/18 20:46 Dose: 80 mg Rizatriptan Benzoate (Maxalt Fiscal Accountant) 10 mg PO ASDIRECTED PRN PRN Reason: migraines Last Admin: 02/02/18 09:34 Dose: 10 mg Senna/Docusate Sodium (Senna Plus) 2 tab PO BID [facility] Sodium Chloride (Saline Flush) 10 ml FLUSH ASDIRECTED PRN PRN Reason: Keep Vein Open Last Admin: 02/01/18 13:41 Dose: 10 ml Tamsulosin HCl (Flomax) 0.4 mg PO BEDTIME [facility] Last Admin: 02/02/18 20:46 Dose: 0.4 mg Tramadol HCl (Ultram) 50 mg PO Q4H PRN PRN Reason: Pain Last Admin: 02/03/18 02:15 Dose: 50 mg Vitamin B Complex (Vitamin B Complex) 1 each PO ACBREAKFAST [facility] Last Admin: 02/02/18 07:36 Dose: 1 each Discontinued Medications Bisacodyl (Dulcolax) 10 mg PO ONETIME ONE Stop: 02/02/18 09:01 Last Admin: 02/02/18 09:26 Dose: 10 mg Bisacodyl (Dulcolax) 10 mg PO ONETIME ONE Stop: 02/02/18 20:01 Last Admin: 02/02/18 20:20 Dose: Not Given Hydromorphone HCl (Dilaudid Director Of Financial Planning 15 Mg In Ns 30 Ml) 15 mg IV ASDIRECTED JUDY; Protocol Last Admin: 02/01/18 18:47 Dose: 15 mg Hydromorphone HCl (Dilaudid Director Of Financial Planning 15 Mg In Ns 30 Ml) 0 mg IV ASDIRECTED PRN; Protocol PRN Reason: PAIN Last Admin: 02/02/18 07:29 Dose: 15 mg Lidocaine HCl (Xylocaine 2% Jelly) 10 ml MUCMEM ONETIME ONE Stop: 02/02/18 07:31 Last Admin: 02/02/18 07:34 Dose: 10 ml Lidocaine HCl (Xylocaine 2% Jelly) Confirm Administered Dose 10 ml .ROUTE .STK- MED ONE Stop: 02/02/18 08:10 Last Admin: 02/02/18 09:25 Dose: Not Given Pantoprazole Sodium (Protonix Iv) 40 mg IV Q24H [facility] Last Admin: 02/01/18 13:36 Dose: 40 mg Polyethylene Glycol (Miralax) 119 gm PO ONETIME ONE Stop: 02/01/18 15:01 Last Admin: 02/01/18 15:25 Dose: 119 gm Polyethylene Glycol (Miralax) 238 gm PO ONETIME ONE Stop: 02/02/18 12:01 Last Admin: 02/02/18 13:01 Dose: 238 gm Polyethylene Glycol (Miralax) 85 gm PO ONETIME ONE Stop: 02/03/18 07:31 Tamsulosin HCl (Flomax) 0.4 mg PO ONETIME STA Stop: 02/02/18 06:45 Last Admin: 02/02/18 07:24 Dose: 0.4 mg Tamsulosin HCl (Flomax) 0.4 mg PO ONETIME ONE Stop: 02/03/18 07:31 - Exam Quality Assessment: Urine Catheter, DVT Prophylaxis General: Alert, Oriented, Cooperative, No Acute Distress HEENT: Pupils Equal, Pupils Reactive Neck: Supple Lungs: Clear to Auscultation, Normal Respiratory Effort Cardiovascular: Regular Rate, Regular Rhythm GI/Abdominal Exam: Soft, Non-Tender Extremities: Normal Inspection Skin: Warm, Dry, Intact Neurological: No New Focal Deficit Psy/Mental Status: Alert, Normal Affect, Normal Mood - Problem List & Annotations (1) Partial small bowel obstruction SNOMED Code(s): 252969767 Code(s): K56.600 - PARTIAL INTESTINAL OBSTRUCTION, UNSPECIFIED TO CAUSE Status: Acute Current Visit: Yes - Problem List Review Problem List Initiated/Reviewed/Updated: Yes - My Orders Last 24 Hours: Active Orders 24 hr Category Date Time Status DC Dueñas Catheter [Urinary Catheter Removal] [RC] Per Care 02/03/18 07:08 Active Unit Routine Insert Dueñas Catheter [Insert Urinary Catheter] [OM.PC] Care 02/02/18 07:00 Ordered Q24H Urinary Catheter Assessment [RC] ASDIRECTED Care 02/02/18 06:47 Active Consult to Pharmacy [CONS] Routine Cons 02/03/18 07:13 Active Abdomen 2V AP Flat Upright [CR] DAILY Exams 02/03/18 04:00 Taken Abdomen 2V AP Flat Upright [CR] DAILY Exams 02/04/18 04:00 Ordered Abdomen 2V AP Flat Upright [CR] DAILY Exams 02/05/18 04:00 Ordered Abdomen 2V AP Flat Upright [CR] DAILY Exams 02/06/18 04:00 Ordered Abdomen 2V AP Flat Upright [CR] DAILY Exams 02/07/18 04:00 Ordered Cholecalciferol (Vitamin D3) [Vitamin D3] Med 02/02/18 09:00 Active 5,000 units PO DAILY DULoxetine [Cymbalta] Med 02/02/18 09:00 Active 60 mg PO QAM Docusate Sodium/Sennosides [Senna Plus] Med 02/03/18 09:00 Active 2 tab PO BID Folic Acid Med 02/02/18 09:00 Active 1 mg PO DAILY HYDROmorphone [Dilaudid] Med 02/02/18 11:58 Active 2 - 4 mg PO Q4H PRN Naloxegol Oxalate [Movantik] Med 02/02/18 07:30 Active 25 mg PO ACBREAKFAST Naloxone [Narcan] Med 02/02/18 07:06 Active 0.1 mg IV ASDIRECTED PRN Pantoprazole [ProTONIX] Med 02/02/18 13:00 Active 40 mg PO Q24H Tamsulosin [Flomax] Med 02/02/18 21:00 Active 0.4 mg PO BEDTIME Vitamin B Complex Med 02/02/18 07:30 Active 1 each PO ACBREAKFAST Zinc Gluconate [Zinc] Med 02/02/18 09:00 Active 50 mg PO DAILY diphenhydrAMINE [Benadryl] Med 02/02/18 07:09 Active 25 - 50 mg PO Q4H PRN Medication Orders Acarbose (Precose) 75 mg PO TIDMEALS [facility] Last Admin: 02/02/18 17:59 Dose: 75 mg Admin: 02/02/18 13:01 Dose: 75 mg Admin: 02/02/18 07:36 Dose: 75 mg Admin: 02/01/18 18:57 Dose: Not Given Alprazolam (Xanax) 1 - 2 mg PO BEDTIME PRN PRN Reason: Anxiety Last Admin: 02/02/18 20:42 Dose: 2 mg Amitriptyline HCl (Elavil) 150 mg PO BEDTIME [facility] Last Admin: 05/31/18 20:46 Dose: 150 mg Admin: 02/01/18 21:38 Dose: 150 mg Buspirone HCl (Buspar) 15 mg PO TID [facility] Last Admin: 02/02/18 20:46 Dose: 15 mg Admin: 02/02/18 13:02 Dose: 15 mg Admin: 02/02/18 09:26 Dose: 15 mg Admin: 02/01/18 21:37 Dose: 15 mg Calcium Carbonate (Caltrate 600+D 1500 Mg-400 Units) 1 tab PO QPM [facility] Last Admin: 02/02/18 17:59 Dose: 1 tab Admin: 02/01/18 17:14 Dose: 1 tab Cholecalciferol (Vitamin D3) 5,000 units PO DAILY [facility] Last Admin: 02/02/18 09:27 Dose: 5,000 units Diclofenac Sodium (Voltaren 1% Gel) 0 gm TOP QID [facility] Last Admin: 02/03/18 06:44 Dose: Not Given Admin: 02/02/18 21:04 Dose: Not Given Admin: 02/02/18 16:30 Dose: Not Given Admin: 02/02/18 09:28 Dose: Not Given Admin: 02/02/18 06:17 Dose: Not Given Admin: 02/01/18 21:39 Dose: Not Given Admin: 02/01/18 15:25 Dose: Not Given Diphenhydramine HCl (Benadryl) 25 - 50 mg IVPUSH Q4H PRN PRN Reason: Itching Diphenhydramine HCl (Benadryl) 25 - 50 mg PO Q4H PRN PRN Reason: Itching Last Admin: 02/03/18 06:44 Dose: 25 mg Duloxetine HCl (Cymbalta) 30 mg PO QPM [facility] Last Admin: 02/02/18 17:58 Dose: 30 mg Admin: 02/01/18 17:11 Dose: 30 mg Duloxetine HCl (Cymbalta) 60 mg PO QAM [facility] Last Admin: 02/02/18 09:28 Dose: 60 mg Fluticasone Propionate (Flonase) 0 gm NASBOTH BEDTIME [facility] Last Admin: 02/02/18 20:46 Dose: 2 spray Admin: 02/01/18 21:39 Dose: 2 spray Folic Acid (Folic Acid) 1 mg PO DAILY [facility] Last Admin: 02/02/18 09:27 Dose: 1 mg Gabapentin (Neurontin) 600 mg PO TID [facility] Last Admin: 02/02/18 20:46 Dose: 600 mg Admin: 02/02/18 15:14 Dose: 600 mg Admin: 02/02/18 09:26 Dose: 600 mg Admin: 02/01/18 22:48 Dose: 600 mg Admin: 02/01/18 17:15 Dose: 600 mg Hydromorphone HCl (Dilaudid) 2 - 4 mg PO Q4H PRN PRN Reason: Pain Last Admin: 02/03/18 04:28 Dose: 4 mg Admin: 02/02/18 23:38 Dose: 4 mg Admin: 02/02/18 19:28 Dose: 4 mg Dextrose/Lactated Ringer's (Dextrose 5%-Lactated Ringers) 1,000 mls @ 150 mls/ hr IV ASDIRECTED [facility] Last Admin: 02/03/18 03:26 Dose: 150 mls/hr Infusion: 02/03/18 03:20 Dose: 150 mls/hr Admin: 02/02/18 20:39 Dose: 150 mls/hr Infusion: 02/02/18 14:05 Dose: 150 mls/hr Admin: 02/02/18 07:24 Dose: 150 mls/hr Infusion: 02/02/18 07:24 Dose: 150 mls/hr Admin: 02/02/18 01:25 Dose: 150 mls/hr Infusion: 02/02/18 01:25 Dose: 150 mls/hr Admin: 02/01/18 18:51 Dose: 150 mls/hr Infusion: 02/01/18 18:37 Dose: 150 mls/hr Admin: 02/01/18 11:56 Dose: 150 mls/hr Lorazepam (Ativan) 1 mg IVPUSH Q2H PRN PRN Reason: nausea Last Admin: 02/02/18 23:38 Dose: 1 mg Admin: 02/01/18 21:29 Dose: 1 mg Multivitamins/Minerals (Thera M Plus) 1 tab PO BID [facility] Last Admin: 02/02/18 20:46 Dose: 1 tab Admin: 02/02/18 09:27 Dose: 1 tab Admin: 02/01/18 21:38 Dose: 1 tab Naloxone HCl (Narcan) 0.1 mg IV ASDIRECTED PRN PRN Reason: decreased respiratory rate (Zinc Gluconate [ (Zinc] 50 Mg)*Pom*) 50 mg PO DAILY [facility] Last Admin: 02/02/18 11:10 Dose: Pantoprazole Sodium (Protonix) 40 mg PO Q24H [facility] Last Admin: 02/02/18 14:11 Dose: 40 mg Propranolol HCl (Inderal) 80 mg PO TID [facility] Last Admin: 02/02/18 20:46 Dose: 80 mg Admin: 02/02/18 14:11 Dose: 80 mg Admin: 02/02/18 09:25 Dose: 80 mg Admin: 02/01/18 21:38 Dose: 80 mg Rizatriptan Benzoate (Maxalt Fiscal Accountant) 10 mg PO ASDIRECTED PRN PRN Reason: migraines Last Admin: 02/02/18 09:34 Dose: 10 mg Senna/Docusate Sodium (Senna Plus) 2 tab PO BID [facility] Sodium Chloride (Saline Flush) 10 ml FLUSH ASDIRECTED PRN PRN Reason: Keep Vein Open Last Admin: 02/01/18 13:41 Dose: 10 ml Tamsulosin HCl (Flomax) 0.4 mg PO BEDTIME [facility] Last Admin: 02/02/18 20:46 Dose: 0.4 mg Tramadol HCl (Ultram) 50 mg PO Q4H PRN PRN Reason: Pain Last Admin: 02/03/18 02:15 Dose: 50 mg Admin: 02/02/18 16:19 Dose: 50 mg Admin: 02/01/18 14:39 Dose: 50 mg Vitamin B Complex (Vitamin B Complex) 1 each PO ACBREAKFAST [facility] Last Admin: 02/02/18 07:36 Dose: 1 each - Plan Plan (Free Text/Narrative):: Plan: DC Dueñas Catheter today Rx Flomax 0.4 mg give one dose NOW and continue HS dose Dietary Consult regarding chronic constipation, chronic opioid usage and RNY Gastric Bypass Pharmacy Consult regarding compatibility of medications with Erythromycin Rx Miralax 17 grams - 5 scoops today mix with Gatorade or G2. Abdominal Flat and Upright X Rays in Am continue series. Continue to work on bowels and increasing protein and liquids Shelby Aguilar 02/03/18
[2018-02-03] MEDS: Cholecalciferol (Vitamin D3) 1,000 Unit Tab PO SCH (07:59)
[2018-02-03] MEDS: Naloxegol Oxalate 25 MG Tab PO SCH (07:59)
[2018-02-03] MEDS: LORazepam 2 MG/ML SDV IVPUSH PRN (08:02)
[2018-02-03] MEDS: Vitamin B Complex Tab PO SCH (08:15)
[2018-02-03] MEDS: busPIRone 5 MG Tab PO SCH ×3 (08:16→20:39)
[2018-02-03] MEDS: DULoxetine 30 MG Cap PO SCH ×2 (08:17→16:39)
[2018-02-03] MEDS: Folic Acid 1 MG Tab PO SCH (08:18)
[2018-02-03] MEDS: Propranolol 40 MG Tab PO SCH ×3 (08:18→20:41)
[2018-02-03] MEDS: Gabapentin 300 MG Cap PO SCH ×3 (08:19→20:40)
[2018-02-03] MEDS: Multivitamins with Iron/Calcium/Folic Acid/Minerals Tab PO SCH ×2 (08:19→20:41)
--- NOTE | 2018-02-03 09:37 | CR ---
Findings are of gaseous distention throughout the colon with air-fluid levels. Postsurgical changes. Findings can indicate colonic ileus or low colonic obstruction.
[2018-02-03] MEDS: Pantoprazole 40 MG Tab.CR PO SCH (12:18)
[2018-02-03] MEDS: Calcium Carbonate/Vitamin D3 1500 MG-400 Units Tab PO SCH (16:37)
[2018-02-03] MEDS: ALPRAZolam 0.5 MG Tab PO PRN (20:40)
[2018-02-03] MEDS: Fluticasone Propionate Nasal Spray 16 GM Bottle NASBOTH SCH (20:40)
[2018-02-03] MEDS: Tamsulosin 0.4 MG Cap.ER PO SCH (20:41)
[2018-02-03] MEDS ORDERED: Ondansetron 4 MG Tab.DIS PO PRN (21:32)
[2018-02-04] MEDS: traMADol 50 MG Tab PO PRN ×4 (01:12→21:00)
[2018-02-04] MEDS: Diclofenac Sodium 1% Gel 100 GM Tube TOP SCH ×4 (05:40→22:05)
[2018-02-04] MEDS: Naloxegol Oxalate 25 MG Tab PO SCH (06:58)
[2018-02-04] MEDS: Vitamin B Complex Tab PO SCH (06:58)
[2018-02-04] MEDS: busPIRone 5 MG Tab PO SCH ×3 (09:17→20:55)
[2018-02-04] MEDS: DULoxetine 30 MG Cap PO SCH ×2 (09:18→16:34)
[2018-02-04] MEDS: Propranolol 40 MG Tab PO SCH ×3 (09:18→20:54)
[2018-02-04] MEDS: Gabapentin 300 MG Cap PO SCH ×3 (09:19→20:54)
[2018-02-04] MEDS: Multivitamins with Iron/Calcium/Folic Acid/Minerals Tab PO SCH ×2 (09:19→20:55)
[2018-02-04] MEDS: Polyethylene Glycol 3350 Powder 17 GM Packet PO SCH (09:20)
[2018-02-04] MEDS: Cholecalciferol (Vitamin D3) 1,000 Unit Tab PO SCH (09:20)
[2018-02-04] MEDS: Folic Acid 1 MG Tab PO SCH (09:22)
[2018-02-04] MEDS: Pantoprazole 40 MG Tab.CR PO SCH (13:59)
[2018-02-04] MEDS: HYDROmorphone 2 MG Tab PO PRN ×2 (15:47→20:21)
[2018-02-04] MEDS: Calcium Carbonate/Vitamin D3 1500 MG-400 Units Tab PO SCH (16:33)
[2018-02-04] MEDS: Fluticasone Propionate Nasal Spray 16 GM Bottle NASBOTH SCH (20:54)
[2018-02-04] MEDS: Tamsulosin 0.4 MG Cap.ER PO SCH (20:55)
[2018-02-04] MEDS: ALPRAZolam 0.5 MG Tab PO PRN (21:00)
[2018-02-05] MEDS: traMADol 50 MG Tab PO PRN ×4 (03:03→17:32)
[2018-02-05] MEDS: HYDROmorphone 2 MG Tab PO PRN ×3 (05:59→21:51)
[2018-02-05] MEDS: Diclofenac Sodium 1% Gel 100 GM Tube TOP SCH ×4 (06:03→21:47)
[2018-02-05] MEDS: Vitamin B Complex Tab PO SCH (06:40)
[2018-02-05] MEDS: Naloxegol Oxalate 25 MG Tab PO SCH (06:41)
[2018-02-05] MEDS: Cholecalciferol (Vitamin D3) 1,000 Unit Tab PO SCH (08:51)
[2018-02-05] MEDS: Propranolol 40 MG Tab PO SCH ×3 (08:52→21:46)
[2018-02-05] MEDS: DULoxetine 30 MG Cap PO SCH ×2 (08:53→16:29)
[2018-02-05] MEDS: Gabapentin 300 MG Cap PO SCH ×3 (08:53→21:46)
[2018-02-05] MEDS: busPIRone 5 MG Tab PO SCH ×3 (08:54→21:44)
[2018-02-05] MEDS: Multivitamins with Iron/Calcium/Folic Acid/Minerals Tab PO SCH ×2 (08:54→21:46)
[2018-02-05] MEDS: Folic Acid 1 MG Tab PO SCH (08:54)
[2018-02-05] MEDS: Polyethylene Glycol 3350 Powder 17 GM Packet PO SCH (08:55)
[2018-02-05] MEDS: Pantoprazole 40 MG Tab.CR PO SCH (12:09)
[2018-02-05] MEDS: Calcium Carbonate/Vitamin D3 1500 MG-400 Units Tab PO SCH (16:31)
[2018-02-05] MEDS: Fluticasone Propionate Nasal Spray 16 GM Bottle NASBOTH SCH (21:44)
[2018-02-05] MEDS: Tamsulosin 0.4 MG Cap.ER PO SCH (21:45)
[2018-02-05] MEDS: ALPRAZolam 0.5 MG Tab PO PRN (21:55)
[2018-02-06] MEDS: HYDROmorphone 2 MG Tab PO PRN ×2 (03:05→07:37)
[2018-02-06] MEDS: Diclofenac Sodium 1% Gel 100 GM Tube TOP SCH ×2 (06:56→09:25)
[2018-02-06 07:27] VITALS: BP 128/77
[2018-02-06] MEDS: Vitamin B Complex Tab PO SCH (07:39)
[2018-02-06] MEDS: Naloxegol Oxalate 25 MG Tab PO SCH (07:39)
--- NOTE | 2018-02-06 08:39 | CR ---
Abdomen 2V AP Flat Upright CLINICAL HISTORY: Obstruction FINDINGS: There has been decrease in colonic distention. There is now gas and feces in the rectosigmoid colon. The small intestinal gas pattern is nonacute. There has been previous abdominal surgeries. IMPRESSION: Decreasing gaseous distention of the colon may represent resolving ileus or distal colo karl obstruction
--- NOTE | 2018-02-06 08:53 | PN ---
DATE OF SERVICE: 02/05/2018 The patient has been afebrile with stable vital signs. He continues to move his bowels reasonably well. Abdominal x-ray shows some emerging stool, but not colon distention that we were seeing previously. We will continue the regimen of 5 scoops of MiraLAX, Senna Plus b.i.d., and the Movantik, and probably plan for discharge home tomorrow. Home care will get set up and will need to have things written down, so the patient remembers what to be taking and such on a day-to-day basis. Donaldo Ayon MD /[id number]
--- NOTE | 2018-02-06 08:59 | PN ---
DATE OF SERVICE: 02/04/2018 The patient has been afebrile with stable vital signs. Oral intake is fairly good. Pain control is, at this point, doing well. He did move his bowels some yesterday, as well as once overnight. Abdominal x-ray shows some increasing stool once again. The plan at this point will be to give him MiraLAX 85 g a day with 20 ounces of Gatorade and make sure that this regimen, along with Senna Plus, works satisfactory. Over the weekend, if it does, he will likely be discharged home on Tuesday. Donaldo Ayon MD /[id number]
--- NOTE | 2018-02-06 09:22 | CR ---
Abdomen 2V AP Flat Upright CLINICAL HISTORY: Obstruction FINDINGS: Patient is gas and feces colon. The colonic distention has decreased slightly since prior s tudy. Small intestinal configuration is nonacute. Patient has had previous abdominal surgeries IMPRESSION: Decreasing bowel distention
[2018-02-06] MEDS: traMADol 50 MG Tab PO PRN (09:23)
[2018-02-06] MEDS: Gabapentin 300 MG Cap PO SCH (09:25)
[2018-02-06] MEDS: Multivitamins with Iron/Calcium/Folic Acid/Minerals Tab PO SCH (09:26)
[2018-02-06] MEDS: busPIRone 5 MG Tab PO SCH (09:27)
[2018-02-06] MEDS: Cholecalciferol (Vitamin D3) 1,000 Unit Tab PO SCH (09:28)
[2018-02-06] MEDS: Folic Acid 1 MG Tab PO SCH (09:29)
[2018-02-06] MEDS: Polyethylene Glycol 3350 Powder 17 GM Packet PO SCH (09:31)
[2018-02-06] MEDS: Propranolol 40 MG Tab PO SCH (09:33)
[2018-02-06] MEDS: DULoxetine 30 MG Cap PO SCH (10:49)
--- NOTE | 2018-02-06 11:01 | CR ---
Abdomen 2V AP Flat Upright CLINICAL HISTORY: Obstruction FINDINGS: Gas and feces is seen throughout the colon. Distention is decreased since prior studies. Th e there are some persistent the dilated loops of small bowel in a nonacute pattern. No free air is se en. IMPRESSION: Mild persistent small bowel distention in a nonspecific pattern Decreased colonic distention
--- NOTE | 2018-02-07 00:38 | DISCH ---
ADMISSION DIAGNOSES: Partial small bowel obstruction, major depression disorder, SP Giovany-en- Y gastric bypass surgery, unspecified surgical malabsorption, B12 deficiency, anxiety, depression, posttraumatic stress disorder, postconcussion syndrome, TBI, chronic opioid use. DISCHARGE DIAGNOSIS: Resolution of partial small bowel obstruction. HISTORY: Dave Smith is a 47-year-old male with partial small bowel obstruction, largely distended colon, and chronic constipation. He was admitted on 02/01/[address] scan was obtained. He was started on a complete colon prep and Movantik. He also had some urinary retention and a Ponce catheter was placed and he was started on Flomax. This did resolve. His Ponce catheter was able to be discontinued. Continuation of abdominal flat and upright film and his bowels were managed daily adjusting cathartic medications according to the status of his abdominal flat and upright x-rays. He was able to maintain bowel movements with regimen of MiraLAX, senna and Movantik and was able to be discharged to home on 02/06/2018 with home health care to assist in managing his medications. REVIEW OF SYSTEMS: HEENT: Negative. NECK: Negative. CHEST: No chest pain or shortness of breath. LUNGS: No cough. ABDOMEN: As above. Not having regular bowel movements. EXTREMITIES: Negative with exception of chronic pain. SKIN: Without rash. Remainder of review of systems negative for any pertinent positives and negatives. OBJECTIVE: GENERAL: Dave Smith is a 47-year-old male. He is alert and orientated. VITAL SIGNS: Height is 6 feet. Weight is 172 pounds. TPR 98.5, 88, 16. Blood pressure 128/77. HEENT: Negative. NECK: Supple. HEART: Regular rate and rhythm. LUNGS: Clear. ABDOMEN: Soft, nontender. EXTREMITIES: Without peripheral edema. NEURO: Intact. SKIN: Without rash. DISPOSITION: Discharged to home with home health care. DISPOSITION: Stable. NEW PRESCRIPTIONS: 1. Dilaudid 2 mg 1 to 2 q.4 hours p.r.n. pain #20. 2. Movantik 25 mg p.o. with breakfast #90 with 4 refills. 3. MiraLAX 85 g p.o. daily. 4. 20 ounces of G2 #100 and 1 year refill. 5. Senna Plus 2 tablets p.o. at bedtime #60 and 11 refills. 6. He is to resume his home medications. FOLLOWUP APPOINTMENT: With Shelby Rodriguez PA-C, on 02/15/2018 at 9 a.m. DIET: Step 4 gastric bypass diet. Drink 8 to 10 glasses of water a day. ACTIVITY: As tolerated. Shower bathing, may shower. Notify provider if any increased pain.
== END 2018-02-06 11:03 | disposition home health service (06) | DRG 389 ==
LOC: JP.2SS 10:36 → JP.MS 13:37
PROVIDERS: ADMIT Surgery; ATTEND Surgery
DX: K56.600 Partial intestinal obstruction, unspecified as to cause (principal); K91.2 Postsurgical malabsorption, not elsewhere classified; F32.9 Major depressive disorder, single episode, unspecified; Z98.84 Bariatric surgery status; Z98.0 Intestinal bypass and anastomosis status; F17.210 Nicotine dependence, cigarettes, uncomplicated; E53.8 Deficiency of other specified B group vitamins; F41.9 Anxiety disorder, unspecified; F43.10 Post-traumatic stress disorder, unspecified; Z79.891 Long term (current) use of opiate analgesic; Z87.820 Personal history of traumatic brain injury; F07.81 Postconcussional syndrome; M54.9 Dorsalgia, unspecified; G89.29 Other chronic pain; H54.7 Unspecified visual loss; Z91.041 Radiographic dye allergy status; Z88.5 Allergy status to narcotic agent; Z91.048 Other nonmedicinal substance allergy status; K59.03 Drug induced constipation; R33.9 Retention of urine, unspecified; J30.9 Allergic rhinitis, unspecified; G43.909 Migraine, unspecified, not intractable, without status migrainosus; T40.2X5A Adverse effect of other opioids, initial encounter; Y92.009 Unspecified place in unspecified non-institutional (private) residence as the place of occurrence of the external cause
CPT/HCPCS: 36415; 51702; 74019; 74019-26; 74176; 74176-26; 80053; 82728; 83735; 84100; 85027; 94762; A9270-GY; C9113; J1170; J2060; J7042; J7050

== ENCOUNTER 2018-02-08 16:05 | Inpatient (IN) | payer MEDICAID ==
--- NOTE | 2018-02-08 16:47 | EDM.PDOC ---
ED HPI GENERAL MEDICAL PROBLEM - General Chief Complaint: Respiratory Problem Stated Complaint: SENT FROM [facility] Time Seen by Provider: 02/08/18 16:40 Source of Information: Reports: Patient, Old Records, Provider, RN History Limitations: Reports: No Limitations - History of Present Illness INITIAL COMMENTS - FREE TEXT/NARRATIVE: 47 yo male was referred to our ER today from a clinic in [place], [place] for SOB, mild hypoxia. Was discharged 2 days ago from here after an admission for partial SBO. Sx's began last night. Was noted in the clinic to have a low grade fever of 100.8F, sats of 88% on RA, and a CXR was suggestive of R sided pneumonia. His WBC ct was 13. Both legs were noted to be swollen, and a hx was noted of a recent discontinuation during his hospitalization of his furosemide. No vomiting in the past few days. Has a pHx of PE ? on the right. Onset: Gradual Onset Date: 02/07/18 Duration: Hour(s):, Getting Worse Location: Reports: Chest Quality: Reports: Other (no pain) Severity: Moderate Improves with: Reports: Rest Worsens with: Reports: Movement Context: Reports: Other (Recent hospitalization at [facility] for partial SBO) Associated Symptoms: Reports: Fever/Chills, Shortness of Breath, Other ( bilateral calf and ankle swelling) Treatments CATCHER FILTER TIP: Reports: Other (see below) (none) Chest Pain Score (Numeric/FACES): 7 - Related Data Allergies Allergy/AdvReac Type Severity Reaction Status Date / Time Iodinated Contrast- Oral and Allergy Unknown Itching Verified 02/08/18 17:22 IV Dye [Iodinated Contrast Media - IV Dye] iohexol [From Omnipaque 140] Allergy Unknown unknown Verified 02/08/18 17:22 morphine Allergy Unknown Itching Verified 02/08/18 17:22 adhesive tape Allergy Blisters Verified 02/08/18 17:22 oxycodone [From Percocet] Allergy Itching Verified 02/08/18 17:22 surgical lisa Allergy Blisters Uncoded 12/30/17 11:41 Home Meds: Home Meds Cholecalciferol (Vitamin D3) [Vitamin D3] 5,000 units PO DAILY 11/21/13 [History ] Diclofenac Sodium [Voltaren 1% Gel] 1 applic TP QID 11/21/13 [History] Multivitamin [Multivitamins] 1 cap PO BID 11/21/13 [History] Propranolol [Inderal] 80 mg PO TID 11/21/13 [History] Vitamin B Complex 1 each PO ACBREAKFAST 11/21/13 [History] Rizatriptan Benzoate [Rizatriptan] 10 mg SL ASDIRECTED PRN 01/16/15 [History] Triamcinolone Acetonide [Nasacort AQ [place]] 2 sprays INH BEDTIME 01/16/15 [ History] Gabapentin [Neurontin] 600 mg PO TID 07/02/16 [History] Calcium Citrate 250 mg PO QPM 10/09/16 [History] Cyanocobalamin (Vitamin B-12) [Cyanocobalamin Injection] 1,000 mcg IJ [id number] 10/06/17 [History] DULoxetine HCl [Duloxetine HCl] 60 mg PO QAM 10/06/17 [History] Folic Acid 1 mg PO DAILY 10/06/17 [History] Zinc Gluconate [Zinc] 50 mg PO DAILY 10/06/17 [History] busPIRone [Buspar] 15 mg PO TID 10/06/17 [History] ALPRAZolam [Xanax] 1 - 2 mg PO BEDTIME PRN 12/28/17 [History] DULoxetine HCl [Cymbalta] 30 mg PO QPM 12/28/17 [History] Ergocalciferol (Vitamin D2) [Vitamin D2] 50,000 unit PO MOWEFR 12/28/17 [History ] Amitriptyline HCl 150 mg PO BEDTIME 02/01/18 [History] traMADol [Ultram] 50 mg PO Q4H PRN 02/01/18 [History] Acarbose [Precose] 75 mg PO TIDMEALS tablet 02/06/18 [Rx] Naloxegol Oxalate [Movantik] 25 mg PO ACBREAKFAST #90 tablet 02/06/18 [Rx] Polyethylene Glycol 3350 [MiraLAX] 85 gm PO DAILY #100 packet 02/06/18 [Rx] Sennosides/Docusate Sodium [Senna Plus Tablet] 2 tab PO BEDTIME #60 tab [Rx] Furosemide [Lasix] 20 mg PO DAILY 02/08/18 [History] Tamsulosin [Tamsulosin 24 Hr] 0.4 mg PO DAILY 02/08/18 [History] oxyCODONE 10 mg PO Q6HR PRN 02/08/18 [History] Past Medical History HEENT History: Reports: Allergic Rhinitis, Impaired Vision Other HEENT History: wears glasses, sensitive to light Cardiovascular History: Reports: Syncope Respiratory History: Reports: Intubation, Previous Gastrointestinal History: Reports: Bowel Obstruction, Cholelithiasis, Chronic Constipation, GERD Genitourinary History: Reports: Renal Calculus Musculoskeletal History: Reports: Back Pain, Chronic, Fibromyalgia, Osteoarthritis Other Musculoskeletal History: arthritis Neurological History: Reports: Concussion, Headaches, Chronic, Head Trauma, Migraines Other Neuro History: mid-line shift Psychiatric History: Reports: Antisocial Behaviors, Anxiety, Depression, Emotional Problems, PTSD, Other (See Below) Other Psychiatric History: tbi 4 years ago Endocrine/Metabolic History: Reports: None, Other (See Below) Other Endocrine/Metabolic History: hypoglycemia Hematologic History: Reports: Anemia, B12 Deficiency, Iron Deficiency Dermatologic History: Reports: Other (See Below) Other Dermatologic History: itching from contrast dye - Infectious Disease History Infectious Disease History: Reports: Chicken Pox - Past Surgical History HEENT Surgical History: Reports: LASIK Cardiovascular Surgical History: Reports: None Respiratory Surgical History: Reports: None GI Surgical History: Reports: Bariatric Procedure, Cholecystectomy, EGD, Hernia , Abdominal, Lysis of Adhesions, Small Bowel, Other (See Below) Other GI Surgeries/Procedures: revision of gastric bypass; panniculectomy; removal of gastric bypass scar tissue Endocrine Surgical History: Reports: None Neurological Surgical History: Reports: None Musculoskeletal Surgical History: Reports: None Social & Family History - Family History Family Medical History: Noncontributory Cardiac: Reports: NM - Caffeine Use Caffeine Use: Reports: Coffee, Energy Drinks ED ROS GENERAL - Review of Systems Review Of Systems: See Below Constitutional: Reports: Fever, Weakness, Fatigue HEENT: Reports: No Symptoms Respiratory: Reports: Shortness of Breath. Denies: Wheezing, Pleuritic Chest Pain, Cough, Sputum, Hemoptysis Cardiovascular: Reports: No Symptoms Endocrine: Reports: No Symptoms GI/Abdominal: Reports: No Symptoms : Reports: No Symptoms Musculoskeletal: Reports: No Symptoms Skin: Reports: No Symptoms Neurological: Reports: No Symptoms Psychiatric: Reports: No Symptoms ED EXAM, GENERAL - Physical Exam Exam: See Below Exam Limited By: No Limitations General Appearance: Alert, WD/WN, No Apparent Distress Eye Exam: Bilateral Eye: Normal Inspection Ears: Normal External Exam, Normal Canal, Hearing Grossly Normal, Normal TMs Ear Exam: Bilateral Ear: Auricle Normal, Canal Normal, TM normal Nose: Normal Inspection, Normal Mucosa, No Blood Throat/Mouth: Normal Inspection, Normal Lips, Normal Oropharynx, Normal Voice, No Airway Compromise Head: Atraumatic, Normocephalic Neck: Normal Inspection, Supple Respiratory/Chest: No Respiratory Distress, No Accessory Muscle Use, Rhonchi (R base). No: Wheezing, Retractions Cardiovascular: Regular Rate, Rhythm, No Edema GI/Abdominal: Normal Bowel Sounds, Soft, Non-Tender, Other (large vertical surgical scar) Back Exam: Normal Inspection. No: CVA Tenderness (R), CVA Tenderness (L) Extremities: Pedal Edema (trace edema to both LE's). No: No Pedal Edema Neurological: Alert, Oriented, CN II-XII Intact, Normal Cognition, No Motor/ Sensory Deficits Psychiatric: Normal Affect, Normal Mood Skin Exam: Warm, Dry, Intact, Normal Color, No Rash Course - Vital Signs Text/Narrative:: Discussed with Dr. Watters @ 1755h Last Recorded V/S: Last Vital Signs Temp 37.2 C 02/08/18 16:49 Pulse 89 02/08/18 16:49 Resp 18 02/08/18 16:49 BP 114/58 L 02/08/18 16:49 Pulse Ox 92 L 02/08/18 16:49 - Orders/Labs/Meds Orders: Active Orders 24 hr Category Date Time Status Ang Chest [CT] Stat Exams 02/08/18 17:34 Stop Req UA W/MICROSCOPIC [URIN] Stat Lab 02/08/18 17:02 Ordered Lactated Ringers [Ringers, Lactated] 1,000 ml Med 02/08/18 17:35 Active IV BOLUS Levofloxacin/Dextrose 5%-Water [Levaquin in D5W 750 MG/ Med 02/08/18 17:57 Ordered 150 ML] 750 mg Premix Bag 1 bag IV ONETIME Medication Orders Lactated Ringer's (Ringers, Lactated) 1,000 mls @ 1,000 mls/hr IV BOLUS ONE Stop: 02/08/18 18:34 Labs: Laboratory Tests 02/08/18 02/08/18 02/08/18 Range/Units 16:43 16:43 16:43 D-Dimer, Quantitative 1160 H (0.0-400.0) ng/mL Sodium 139 L (140-148) mmol/L Potassium 4.1 (3.6-5.2) mmol/L Chloride 102 (100-108) mmol/L Carbon Dioxide 31 (21-32) mmol/L Anion Gap 10.1 (5.0-14.0) mmol/L BUN 18 (7-18) mg/dL Creatinine 1.0 (0.8-1.3) mg/dL Est Cr Clr Drug Dosing 102.39 mL/min Estimated GFR (MDRD) > 60 (>60) Glucose 109 H (74-106) mg/dL Calcium 8.4 L (8.5-10.1) mg/dL Troponin I (0.000-0.056) ng/mL C-Reactive Protein 9.59 H (0.0-0.3) mg/dL NT-Pro-B Natriuret Pep 223 H (5-125) pg/mL Urine Color Urine Appearance Urine pH (4.5-8.0) Ur Specific Rhame (1.008-1.030) Urine Protein (NEGATIVE) mg/dL Urine Glucose (UA) (NEGATIVE) mg/dL Urine Ketones (NEGATIVE) mg/dL Urine Occult Blood (NEGATIVE) Urine Nitrite (NEGAITVE) Urine Bilirubin (NEGATIVE) Urine Urobilinogen (NORMAL) mg/dL Ur Leukocyte Esterase (NEGATIVE) Urine RBC (0-5) Urine WBC (0-5) Ur Epithelial Cells Amorphous Sediment Urine Bacteria Urine Mucus 02/08/18 02/08/18 Range/Units 16:43 17:02 D-Dimer, Quantitative (0.0-400.0) ng/mL Sodium (140-148) mmol/L Potassium (3.6-5.2) mmol/L Chloride (100-108) mmol/L Carbon Dioxide (21-32) mmol/L Anion Gap (5.0-14.0) mmol/L BUN (7-18) mg/dL Creatinine (0.8-1.3) mg/dL Est Cr Clr Drug Dosing mL/min Estimated GFR (MDRD) (>60) Glucose (74-106) mg/dL Calcium (8.5-10.1) mg/dL Troponin I < 0.017 (0.000-0.056) ng/mL C-Reactive Protein (0.0-0.3) mg/dL NT-Pro-B Natriuret Pep (5-125) pg/mL Urine Color Poston Urine Appearance Clear Urine pH 6.0 (4.5-8.0) Ur Specific Rhame 1.015 (1.008-1.030) Urine Protein Negative (NEGATIVE) mg/dL Urine Glucose (UA) Normal (NEGATIVE) mg/dL Urine Ketones Negative (NEGATIVE) mg/dL Urine Occult Blood Negative (NEGATIVE) Urine Nitrite Negative (NEGAITVE) Urine Bilirubin Small (NEGATIVE) Urine Urobilinogen Normal (NORMAL) mg/dL Ur Leukocyte Esterase Negative (NEGATIVE) Urine RBC 0-5 (0-5) Urine WBC 0-5 (0-5) Ur Epithelial Cells Not seen Amorphous Sediment Not seen Urine Bacteria Not seen Urine Mucus Not seen Meds: Medications Generic Name Dose Route Start Last Admin Trade Name Freq PRN Reason Stop Dose Admin Lactated Ringer's 1,000 mls @ 1,000 mls/hr 02/08/18 17:35 Ringers, Lactated IV 02/08/18 18:34 BOLUS ONE Departure - Departure Time of Disposition: 18:15 Disposition: Admitted As Inpatient 68 Condition: Fair Clinical Impression: Hypoxemia, Elevated d-dimer Pneumonia Qualifiers: Pneumonia type: due to unspecified organism Laterality: right Lung location: lower lobe of lung Qualified Code(s): J18.1 - Lobar pneumonia, unspecified organism - Discharge Information Referrals: Connor Lopez MD [Primary Care Provider] - Forms: ED Department Discharge - My Orders Last 24 Hours: My Active Orders 02/08/18 17:02 UA W/MICROSCOPIC [URIN] Stat 02/08/18 17:34 Ang Chest [CT] Stat 02/08/18 17:35 Lactated Ringers [Ringers, Lactated] 1,000 ml IV BOLUS 02/08/18 17:57 Levofloxacin/Dextrose 5%-Water [Levaquin in D5W 750 MG/150 ML] 750 mg Premix Bag 1 bag IV ONETIME - Assessment/Plan Last 24 Hours: My Active Orders 02/08/18 17:02 UA W/MICROSCOPIC [URIN] Stat 02/08/18 17:34 Ang Chest [CT] Stat 02/08/18 17:35 Lactated Ringers [Ringers, Lactated] 1,000 ml IV BOLUS 02/08/18 17:57 Levofloxacin/Dextrose 5%-Water [Levaquin in D5W 750 MG/150 ML] 750 mg Premix Bag 1 bag IV ONETIME
[2018-02-08] MEDS ORDERED: Lactated Ringers 1,000 ML IV ONE (17:35)
[2018-02-08] MEDS ORDERED: Levofloxacin/Dextrose 5%-Water 750 MG in Premix Bag 1 BAG IV ONE (17:57)
[2018-02-08] MEDS ORDERED: Ondansetron 4 MG/2 ML SDV IV PRN (19:37)
[2018-02-08] MEDS ORDERED: Furosemide 40 MG/4 ML VIAL IVPUSH ONE ×2 (19:37→19:38)
[2018-02-08] MEDS ORDERED: Enoxaparin 40 MG/0.4 ML Syringe SUBCUT SCH (19:37)
[2018-02-08] MEDS ORDERED: Albuterol 0.083% 2.5 MG/3 ML Neb Soln NEB PRN (19:37)
[2018-02-08] MEDS ORDERED: Pantoprazole 40 MG Vial IV SCH (19:37)
[2018-02-08] MEDS ORDERED: Rizatriptan 10 MG Tab.DIS PO PRN (19:37)
[2018-02-08] MEDS ORDERED: LORazepam 2 MG/ML SDV IV PRN (19:37)
[2018-02-08] MEDS: Lactated Ringers 1,000 ML IV SCH (20:22)
[2018-02-08] MEDS: oxyCODONE 5 MG Tab PO PRN (20:31)
--- NOTE | 2018-02-08 20:32 | PCM.HP ---
H&P History of Present Illness - General Date of Service: 02/08/18 Admit Problem/Dx: Admission Diagnosis/Problem Admission Diagnosis/Problem Pneumonia Source of Information: Patient History Limitations: Reports: No Limitations - History of Present Illness Initial Comments - Free Text/Narative: 47 yo male was referred to our ER today from a clinic in [place], [place] for SOB, mild hypoxia. Was discharged 2 days ago from here after an admission for partial SBO. Sx's began last night. Was noted in the clinic to have a low grade fever of 100.8F, sats of 88% on RA, and a CXR was suggestive of R sided pneumonia. His WBC count was 13. Both legs were noted to be swollen, and a hx was noted of a recent discontinuation of furosemide. No vomiting in the past few days. Has a pHx of PE on the right. Onset: Gradual Onset Date: 02/07/18 Duration: Hour(s):, Getting Worse Onset of Symptoms: Reports: Gradual Duration of Symptoms: Reports: Day(s): Location: Reports: Generalized Quality: Reports: Other (Shortness of breath with painful respirations.) Severity: Moderate Improves with: Reports: None Worsens with: Reports: None Associated Symptoms: Reports: Fever/Chills, Malaise, Shortness of Breath Chest Pain Score (Numeric/FACES): 7 Generalized Pain Score (Numeric/FACES): 7 - Related Data Allergies/Adverse Reactions: Allergies Allergy/AdvReac Type Severity Reaction Status Date / Time Iodinated Contrast- Oral and Allergy Unknown Itching Verified 02/08/18 20:35 IV Dye [Iodinated Contrast Media - IV Dye] iohexol [From Omnipaque 140] Allergy Unknown unknown Verified 02/08/18 20:35 morphine Allergy Unknown Itching Verified 02/08/18 20:35 adhesive tape Allergy Blisters Verified 02/08/18 20:35 oxycodone [From Percocet] Allergy Itching Verified 02/08/18 20:35 surgical lisa Allergy Blisters Uncoded 02/08/18 20:35 Home Medications: Home Meds Cholecalciferol (Vitamin D3) [Vitamin D3] 5,000 units PO DAILY 11/21/13 [History ] Diclofenac Sodium [Voltaren 1% Gel] 1 applic TP QID 11/21/13 [History] Multivitamin [Multivitamins] 1 cap PO BID 11/21/13 [History] Propranolol [Inderal] 80 mg PO TID 11/21/13 [History] Vitamin B Complex 1 each PO ACBREAKFAST 11/21/13 [History] Rizatriptan Benzoate [Rizatriptan] 10 mg SL ASDIRECTED PRN 01/16/15 [History] Triamcinolone Acetonide [Nasacort AQ [place]] 2 sprays INH BEDTIME 01/16/15 [ History] Gabapentin [Neurontin] 600 mg PO TID 07/02/16 [History] Calcium Citrate 250 mg PO QPM 10/09/16 [History] Cyanocobalamin (Vitamin B-12) [Cyanocobalamin Injection] 1,000 mcg IJ .D0NONEE 10/06/17 [History] DULoxetine HCl [Duloxetine HCl] 60 mg PO QAM 10/06/17 [History] Folic Acid 1 mg PO DAILY 10/06/17 [History] Zinc Gluconate [Zinc] 50 mg PO DAILY 10/06/17 [History] busPIRone [Buspar] 15 mg PO TID 10/06/17 [History] ALPRAZolam [Xanax] 1 - 2 mg PO BEDTIME PRN 12/28/17 [History] DULoxetine HCl [Cymbalta] 30 mg PO QPM 12/28/17 [History] Ergocalciferol (Vitamin D2) [Vitamin D2] 50,000 unit PO MOWEFR 12/28/17 [History ] Amitriptyline HCl 150 mg PO BEDTIME 02/01/18 [History] traMADol [Ultram] 50 mg PO Q4H PRN 02/01/18 [History] Acarbose [Precose] 75 mg PO TIDMEALS tablet 02/06/18 [Rx] Naloxegol Oxalate [Movantik] 25 mg PO ACBREAKFAST #90 tablet 02/06/18 [Rx] Polyethylene Glycol 3350 [MiraLAX] 85 gm PO DAILY #100 packet 02/06/18 [Rx] Sennosides/Docusate Sodium [Senna Plus Tablet] 2 tab PO BEDTIME #60 tab [Rx] Furosemide [Lasix] 20 mg PO DAILY 02/08/18 [History] Tamsulosin [Tamsulosin 24 Hr] 0.4 mg PO DAILY 02/08/18 [History] oxyCODONE 10 mg PO Q6HR PRN 02/08/18 [History] Past Medical History HEENT History: Reports: Allergic Rhinitis, Impaired Vision Other HEENT History: wears glasses, sensitive to light Cardiovascular History: Reports: Syncope Respiratory History: Reports: Intubation, Previous Gastrointestinal History: Reports: Bowel Obstruction, Cholelithiasis, Chronic Constipation, GERD Genitourinary History: Reports: Renal Calculus Musculoskeletal History: Reports: Back Pain, Chronic, Fibromyalgia, Osteoarthritis Other Musculoskeletal History: arthritis Neurological History: Reports: Concussion, Headaches, Chronic, Head Trauma, Migraines Other Neuro History: mid-line shift Psychiatric History: Reports: Antisocial Behaviors, Anxiety, Depression, Emotional Problems, PTSD, Other (See Below) Other Psychiatric History: tbi 4 years ago Endocrine/Metabolic History: Reports: None, Other (See Below) Other Endocrine/Metabolic History: hypoglycemia Hematologic History: Reports: Anemia, B12 Deficiency, Iron Deficiency Dermatologic History: Reports: Other (See Below) Other Dermatologic History: itching from contrast dye - Infectious Disease History Infectious Disease History: Reports: Chicken Pox - Past Surgical History HEENT Surgical History: Reports: LASIK Cardiovascular Surgical History: Reports: None Respiratory Surgical History: Reports: None GI Surgical History: Reports: Bariatric Procedure, Cholecystectomy, EGD, Hernia , Abdominal, Lysis of Adhesions, Small Bowel, Other (See Below) Other GI Surgeries/Procedures: revision of gastric bypass; panniculectomy; removal of gastric bypass scar tissue Endocrine Surgical History: Reports: None Neurological Surgical History: Reports: None Musculoskeletal Surgical History: Reports: None Social & Family History - Family History Family Medical History: Noncontributory Cardiac: Reports: NM - Tobacco Use Smoking Status *Q: Current Every Day Smoker Years of Tobacco use: 10 Packs/Tins Daily: 0.5 - Caffeine Use Caffeine Use: Reports: Coffee, Energy Drinks - Recreational Drug Use Recreational Drug Use: No - Living Situation & Occupation Living situation: Reports: Occupation: Disabled H&P Review of Systems - Review of Systems: Review Of Systems: See Below General: Reports: Fever, Chills, Malaise HEENT: Reports: No Symptoms Pulmonary: Reports: Shortness of Breath, Pleuritic Chest Pain, Cough Cardiovascular: Reports: No Symptoms Gastrointestinal: Reports: Abdominal Pain (Chronic from recent partial small bowel obstruction) Genitourinary: Reports: No Symptoms Musculoskeletal: Reports: Other (Chronic pain) Skin: Reports: No Symptoms Psychiatric: Reports: No Symptoms Neurological: Reports: Pre-Existing Deficit Hematologic/Lymphatic: Reports: No Symptoms Immunologic: Reports: No Symptoms Exam - Exam Exam: See Below - Vital Signs Vital Signs: Last Vital Signs Temp 37.5 C 02/08/18 20:16 Pulse 99 02/08/18 20:16 Resp 18 02/08/18 20:16 BP 129/78 02/08/18 20:23 Pulse Ox 93 L 02/08/18 20:17 Weight: 83.4 kg - Exam Quality Assessment: Supplemental Oxygen General: Alert, Oriented, Cooperative HEENT: PERRLA, Hearing Intact, Mucosa Moist & Gervais, Nares Patent, Normal Nasal Septum, Posterior Pharynx Clear, Conjunctiva Clear, EOMI, EACs Clear, TMs Clear Neck: Supple Lungs: Normal Respiratory Effort, Decreased Breath Sounds Cardiovascular: Regular Rate, Regular Rhythm, Normal S1, Normal S2 GI/Abdominal Exam: Other (Patient has abdomen wrapped in an abdominal binder.) (Male) Exam: Deferred Rectal (Males) Exam: Deferred Back Exam: Normal Inspection, Full Range of Motion Extremities: Pedal Edema (2+ pitting edema to knees) Skin: Warm, Dry, Intact Neurological: Normal Speech Neuro Extensive - Mental Status: Alert, Oriented x3, Normal Mood/Affect, Other ( Has short-term memory impairment due to TBI) Psychiatric: Alert, Normal Affect, Normal Mood - Patient Data Lab Results Last 24 hrs: Laboratory Results - last 24 hr 02/08/18 02/08/18 02/08/18 Range/Units 16:43 16:43 16:43 D-Dimer, Quantitative 1160 H (0.0-400.0) ng/mL Sodium 139 L (140-148) mmol/L Potassium 4.1 (3.6-5.2) mmol/L Chloride 102 (100-108) mmol/L Carbon Dioxide 31 (21-32) mmol/L Anion Gap 10.1 (5.0-14.0) mmol/L BUN 18 (7-18) mg/dL Creatinine 1.0 (0.8-1.3) mg/dL Est Cr Clr Drug Dosing 102.39 mL/min Estimated GFR (MDRD) > 60 (>60) Glucose 109 H (74-106) mg/dL Lactic Acid (0.4-2.0) mmol/L Calcium 8.4 L (8.5-10.1) mg/dL Troponin I (0.000-0.056) ng/mL C-Reactive Protein 9.59 H (0.0-0.3) mg/dL NT-Pro-B Natriuret Pep 223 H (5-125) pg/mL Urine Color Urine Appearance Urine pH (4.5-8.0) Ur Specific [place] (1.008-1.030) Urine Protein (NEGATIVE) mg/dL Urine Glucose (UA) (NEGATIVE) mg/dL Urine Ketones (NEGATIVE) mg/dL Urine Occult Blood (NEGATIVE) Urine Nitrite (NEGAITVE) Urine Bilirubin (NEGATIVE) Urine Urobilinogen (NORMAL) mg/dL Ur Leukocyte Esterase (NEGATIVE) Urine RBC (0-5) Urine WBC (0-5) Ur Epithelial Cells Amorphous Sediment Urine Bacteria Urine Mucus 02/08/18 02/08/18 02/08/18 Range/Units 16:43 17:02 19:37 D-Dimer, Quantitative (0.0-400.0) ng/mL Sodium (140-148) mmol/L Potassium (3.6-5.2) mmol/L Chloride (100-108) mmol/L Carbon Dioxide (21-32) mmol/L Anion Gap (5.0-14.0) mmol/L BUN (7-18) mg/dL Creatinine (0.8-1.3) mg/dL Est Cr Clr Drug Dosing mL/min Estimated GFR (MDRD) (>60) Glucose (74-106) mg/dL Lactic Acid 2.3 H (0.4-2.0) mmol/L Calcium (8.5-10.1) mg/dL Troponin I < 0.017 (0.000-0.056) ng/mL C-Reactive Protein (0.0-0.3) mg/dL NT-Pro-B Natriuret Pep (5-125) pg/mL Urine Color [place] Urine Appearance Clear Urine pH 6.0 (4.5-8.0) Ur Specific [place] 1.015 (1.008-1.030) Urine Protein Negative (NEGATIVE) mg/dL Urine Glucose (UA) Normal (NEGATIVE) mg/dL Urine Ketones Negative (NEGATIVE) mg/dL Urine Occult Blood Negative (NEGATIVE) Urine Nitrite Negative (NEGAITVE) Urine Bilirubin Small (NEGATIVE) Urine Urobilinogen Normal (NORMAL) mg/dL Ur Leukocyte Esterase Negative (NEGATIVE) Urine RBC 0-5 (0-5) Urine WBC 0-5 (0-5) Ur Epithelial Cells Not seen Amorphous Sediment Not seen Urine Bacteria Not seen Urine Mucus Not seen Result Diagrams: 02/08/18 16:43 - Problem List (1) Hypoxemia SNOMED Code(s): 792023680 ICD Code: R09.02 - HYPOXEMIA Status: Acute Priority: High Current Visit : Yes (2) Pneumonia SNOMED Code(s): 377991424 ICD Code: J18.9 - PNEUMONIA, UNSPECIFIED ORGANISM Status: Acute Priority : High Current Visit: Yes Qualifiers: Pneumonia type: due to unspecified organism Laterality: right Lung location: lower lobe of lung Qualified Code(s): J18.1 - Lobar pneumonia, unspecified organism (3) Status post bariatric surgery SNOMED Code(s): 400662947, 816081355, 422513413 ICD Code: Z98.84 - BARIATRIC SURGERY STATUS Status: Chronic Priority: Low Current Visit: No Problem List Initiated/Reviewed/Updated: Yes Orders Last 24hrs: Active Orders 24 hr Category Date Time Status Patient Status [ADT] Routine ADT 02/08/18 19:37 Active Intake and Output [RC] QSHIFT Care 02/08/18 19:37 Active Notify Provider Vital Signs [RC] ASDIRECTED Care 02/08/18 19:37 Active Oxygen Therapy [RC] PRN Care 02/08/18 19:37 Active Pulse Oximetry [RC] CONTINUOUS Care 02/08/18 19:37 Active RT Aerosol Therapy [RC] ASDIRECTED Care 02/08/18 19:37 Active RT Incentive Spirometry [RC] ASDIRECTED Care 02/08/18 19:37 Active Up ad Johanny [RC] ASDIRECTED Care 02/08/18 19:37 Active VTE/DVT Education [RC] Per Unit Routine Care 02/08/18 19:37 Active Vital Signs [RC] Q4H Care 02/08/18 19:37 Active Regular Diet [DIET] Diet 02/08/18 Breakfast Active Chest 2V [CR] AM Exams 02/09/18 05:11 Ordered BASIC METABOLIC PANEL,BMP [CHEM] AM Lab 02/09/18 05:11 Ordered C-REACTIVE PROTEIN [CHEM] AM Lab 02/09/18 05:11 Ordered CBC WITH AUTO DIFF [HEME] AM Lab 02/09/18 05:11 Ordered CULTURE BLOOD [BC] Stat Lab 02/08/18 18:00 Received LACTIC ACID [CHEM] Routine Lab 02/09/18 01:10 Ordered UA W/MICROSCOPIC [URIN] Stat Lab 02/08/18 17:02 Ordered ALPRAZolam [Xanax] Med 02/08/18 21:10 Active 1 - 2 mg PO BEDTIME PRN Acarbose [Precose] Med 02/09/18 08:00 Active 75 mg PO TIDMEALS Albuterol [Proventil Neb Soln] Med 02/08/18 19:37 Active 2.5 mg NEB Q4H PRN Albuterol/Ipratropium [DuoNeb 3.0-0.5 MG/3 ML] Med 02/08/18 22:00 Active 3 ml NEB QID Amitriptyline HCl [Amitriptyline HCl] Med 02/08/18 21:00 Active 150 mg PO BEDTIME Calcium Citrate [Calcium Citrate] Med 02/09/18 17:00 Active 250 mg PO QPM Cholecalciferol (Vitamin D3) [Vitamin D3] Med 02/09/18 09:00 Active 5,000 units PO DAILY DULoxetine HCl [Duloxetine HCl] Med 02/09/18 09:00 Active 60 mg PO QAM DULoxetine [Cymbalta] Med 02/09/18 17:00 Active 30 mg PO QPM Docusate Sodium/Sennosides [Senna Plus] Med 02/08/18 21:00 Active 2 tab PO BEDTIME Enoxaparin [Lovenox] Med 02/08/18 19:37 Active 40 mg SUBCUT DAILY Folic Acid Med 02/09/18 09:00 Active 1 mg PO DAILY Furosemide [Lasix] Med 02/09/18 09:00 Active 20 mg PO DAILY Gabapentin [Neurontin] Med 02/08/18 21:00 Active 600 mg PO TID LORazepam [Ativan] Med 02/08/18 19:37 Active 1 mg IV Q6H PRN Lactated Ringers [Ringers, Lactated] 1,000 ml Med 02/08/18 19:37 Active IV ASDIRECTED Levofloxacin/Dextrose 5%-Water [Levaquin in D5W 750 MG/ Med 02/09/18 17:10 Active 150 ML] 750 mg Premix Bag 1 bag IV Q24H Multivitamin [Multivitamins] Med 02/08/18 21:00 Active 1 cap PO BID Naloxegol Oxalate [Movantik] Med 02/09/18 07:30 Active 25 mg PO ACBREAKFAST Ondansetron [Zofran] Med 02/08/18 19:37 Active 4 mg IV Q4H PRN Pantoprazole [ProTONIX IV] Med 02/08/18 19:37 Active 40 mg IV DAILY Polyethylene Glycol 3350 [MiraLAX] Med 02/09/18 09:00 Active 85 gm PO DAILY Propranolol [Inderal] Med 02/08/18 21:00 Active 80 mg PO TID Rizatriptan [Maxalt SKI PATROLLER] Med 02/08/18 19:37 Active 10 mg PO ASDIRECTED PRN Tamsulosin [Flomax] Med 02/09/18 09:00 Active 0.4 mg PO DAILY Triamcinolone Acetonide [Nasacort AQ [place]] Med 02/08/18 21:00 Active 2 sprays INH BEDTIME busPIRone [Buspar] Med 02/08/18 21:00 Active 15 mg PO TID oxyCODONE Med 02/08/18 19:37 Active 10 mg PO Q6HR PRN traMADol [Ultram] Med 02/08/18 19:37 Active 50 mg PO Q4H PRN Blood Culture x2 Reflex Set [OM.PC] Urgent Oth 02/08/18 19:37 Ordered Give supplemental Oxygen PRN [COMM] Routine Oth 02/08/18 19:37 Ordered Resuscitation Status Routine Resus Stat 02/08/18 19:10 Ordered Medication Orders Acarbose (Precose) 75 mg PO TIDMEALS JUDY Albuterol (Proventil Neb Soln) 2.5 mg NEB Q4H PRN PRN Reason: Shortness Of Breath/wheezing Albuterol/Ipratropium (Duoneb 3.0-0.5 Mg/3 Ml) 3 ml NEB QID JUDY Buspirone HCl (Buspar) 15 mg PO TID JUDY Cholecalciferol (Vitamin D3) 5,000 units PO DAILY JUDY Duloxetine HCl (Cymbalta) 30 mg PO QPM [facility] Enoxaparin Sodium (Lovenox) 40 mg SUBCUT DAILY [facility] Last Admin: 02/08/18 20:23 Dose: 40 mg Folic Acid (Folic Acid) 1 mg PO DAILY JUDY Furosemide (Lasix) 20 mg PO DAILY [facility] Gabapentin (Neurontin) 600 mg PO TID [facility] Lactated Ringer's (Ringers, Lactated) 1,000 mls @ 125 mls/hr IV ASDIRECTED [facility] Last Admin: 02/08/18 20:22 Dose: 125 mls/hr Levofloxacin/Dextrose 750 mg/ (Premix) 150 mls @ 100 mls/hr IV Q24H JUDY Lorazepam (Ativan) 1 mg IV Q6H PRN PRN Reason: Nausea/Vomiting Naloxegol (Movantik) 25 mg PO ACBREAKFAST [facility] Non-Formulary Medication (Alprazolam [Xanax]) 1 - 2 mg PO BEDTIME PRN PRN Reason: Anxiety Non-Formulary Medication (Amitriptyline Hcl [Amitriptyline Hcl]) 150 mg PO BEDTIME [facility] Non-Formulary Medication (Calcium Citrate [Calcium Citrate]) 250 mg PO QPM [facility] Non-Formulary Medication (Duloxetine Hcl [Duloxetine Hcl]) 60 mg PO QAM [facility] Non-Formulary Medication (Multivitamin [Multivitamins]) 1 cap PO BID [facility] Non-Formulary Medication (Propranolol [Inderal]) 80 mg PO TID [facility] Non-Formulary Medication (Triamcinolone Acetonide [Nasacort Aq [place]]) 2 sprays INH BEDTIME [facility] Ondansetron HCl (Zofran) 4 mg IV Q4H PRN PRN Reason: Nausea/Vomiting Oxycodone HCl (Oxycodone) 10 mg PO Q6HR PRN PRN Reason: Pain Pantoprazole Sodium (Protonix Iv) 40 mg IV DAILY [facility] Last Admin: 02/08/18 20:23 Dose: 40 mg Polyethylene Glycol (Miralax) 85 gm PO DAILY [facility] Rizatriptan Benzoate (Maxalt Learning Support Resource Room Teacher) 10 mg PO ASDIRECTED PRN PRN Reason: migraines Senna/Docusate Sodium (Senna Plus) 2 tab PO BEDTIME [facility] Tamsulosin HCl (Flomax) 0.4 mg PO DAILY [facility] Tramadol HCl (Ultram) 50 mg PO Q4H PRN PRN Reason: Pain Assessment/Plan Comment:: Admission Template ASSESSMENT / PLAN -47 yo male was referred to our ER today from a clinic in [place], [place] for SOB, mild hypoxia. Was discharged 2 days ago from here after an admission for partial SBO. Sx's began last night. Was noted in the clinic to have a low grade fever of 100.8F, sats of 88% on RA, and a CXR was suggestive of R sided pneumonia. His WBC count was 13. Both legs were noted to be swollen, and a hx was noted of a recent discontinuation of furosemide. No vomiting in the past few days. Has a pHx of PE on the right. Onset: Gradual Onset Date: 02/07/18 Duration: Hour(s):, Getting Worse Plan Pneumonia -Admit to [address] [place] [address] for further monitoring -IV Fluids for rehydration NS at 125 mL per hour -IV Antibiotic: Levofloxacin 750 gram IV every 24 hours -albuterol nebulizer every 4 hours as needed for wheezing and cough -Duo nebu ; schedule nebulize every 6 hours -Advise to notify nurses of any chest pain or other symptoms -blood cultures x2 pending -And a.m. labs: CBC, BMP, lactic acid History of Giovany-en-Y -Monitor for site any signs of complication Maintenance issues -Orders home meds: -Nutrition: regular diet -Ponce catheter not indicated at this time -DVT: Lovenox 40 mg subcut daily -PPI: IV Protonix 40mg daily CODE STATUS: DNR/DNI Admission status: Admit to [address] [place] [address] Admission justification. This patient will be admitted for inpatient services and is medically appropriate meeting medical necessity for inpatient admission as outlined in my documentation. I reasonably expect the patient will require inpatient services that span. Time over 2 midnights. I reasonably expect this patient to be discharged or transferred within 96 hours after admission to the critical access hospital. Disposition; home Primary care provider: Dr. Juan R Lopez Hospitalist: Dr. Watters
[2018-02-08] MEDS ORDERED: PROPRANOLOL 80 MG PO SCH (21:00)
[2018-02-08] MEDS ORDERED: Fluticasone Propionate Nasal Spray 16 GM Bottle NAS SCH (21:00)
[2018-02-08] MEDS ORDERED: AMITRIPTYLINE HCL 150 MG PO SCH (21:00)
[2018-02-08] MEDS ORDERED: busPIRone 10 MG Tab PO SCH (21:00)
[2018-02-08] MEDS ORDERED: TRIAMCINOLONE ACETONIDE INH SCH (21:00)
[2018-02-08] MEDS ORDERED: Non-Formulary Medication 1 Each (Multivitamin [Multivitamins] 1 CAP) PO SCH (21:00)
[2018-02-08] MEDS ORDERED: ALPRAZOLAM PO PRN (21:10)
[2018-02-08] MEDS ORDERED: CALCIUM CITRATE 250 MG PO SCH (21:15)
[2018-02-08] MEDS ORDERED: Polyethylene Glycol 3350 Powder 17 GM Packet PO SCH (21:15)
[2018-02-08] MEDS ORDERED: Tamsulosin 0.4 MG Cap.ER PO SCH (21:15)
[2018-02-08] MEDS ORDERED: Albuterol/Ipratropium 3.0-0.5 MG/3 ML Neb Soln NEB SCH (22:00)
[2018-02-08] MEDS ORDERED: Polyethylene Glycol 3350 Powder 17 GM Packet ONE ×2 (22:52→22:54)
[2018-02-08] MEDS: Propranolol 40 MG Tab PO SCH (23:31)
[2018-02-08] MEDS: Albuterol/Ipratropium 3.0-0.5 MG/3 ML Neb Soln NEB SCH (23:32)
[2018-02-08] MEDS: Multivitamins with Iron/Calcium/Folic Acid/Minerals Tab PO SCH (23:32)
[2018-02-08] MEDS: ALPRAZolam 0.5 MG Tab PO PRN (23:34)
[2018-02-08] MEDS: Gabapentin 300 MG Cap PO SCH (23:34)
[2018-02-08] MEDS: DULoxetine 30 MG Cap PO SCH (23:57)
[2018-02-09] MEDS: Lactated Ringers 1,000 ML IV SCH (04:32)
[2018-02-09] MEDS: oxyCODONE 5 MG Tab PO PRN ×3 (05:14→18:23)
[2018-02-09] MEDS: traMADol 50 MG Tab PO PRN ×3 (07:09→21:15)
[2018-02-09] MEDS: Albuterol/Ipratropium 3.0-0.5 MG/3 ML Neb Soln NEB SCH ×4 (08:00→21:05)
[2018-02-09] MEDS: Naloxegol Oxalate 25 MG Tab PO SCH (08:36)
[2018-02-09] MEDS: Furosemide 20 MG Tab PO SCH (08:37)
[2018-02-09] MEDS: Gabapentin 300 MG Cap PO SCH ×3 (08:37→21:11)
[2018-02-09] MEDS: Folic Acid 1 MG Tab PO SCH (08:37)
[2018-02-09] MEDS: busPIRone 5 MG Tab PO SCH ×3 (08:37→21:09)
[2018-02-09] MEDS: Cholecalciferol (Vitamin D3) 1,000 Unit Tab PO SCH (08:38)
[2018-02-09] MEDS: Nicotine 14 MG/24 Hr Patch TRDERM SCH (08:39)
[2018-02-09] MEDS: Multivitamins with Iron/Calcium/Folic Acid/Minerals Tab PO SCH ×2 (08:39→21:11)
[2018-02-09] MEDS: Polyethylene Glycol 3350 Powder 17 GM Packet PO SCH (08:40)
[2018-02-09] MEDS: Propranolol 40 MG Tab PO SCH ×3 (08:40→21:10)
[2018-02-09] MEDS ORDERED: Multivitamins with Iron/Calcium/Folic Acid/Minerals Tab PO SCH (09:00)
[2018-02-09] MEDS ORDERED: Polyethylene Glycol 3350 Powder 17 GM Packet PO SCH (09:00)
[2018-02-09] MEDS ORDERED: Propranolol 40 MG Tab PO SCH (09:00)
[2018-02-09] MEDS ORDERED: Pneumococcal Polyvalent-23 Vaccine 0.5 ML SDV IM ONE (09:00)
[2018-02-09] MEDS ORDERED: DULOXETINE HCL 60 MG PO SCH (09:00)
[2018-02-09] MEDS ORDERED: Tamsulosin 0.4 MG Cap.ER PO SCH (09:00)
--- NOTE | 2018-02-09 10:18 | CR ---
CHEST: 2 view CLINICAL HISTORY:Pneumonia COMPARISON:[facility] 06/24/2017 FINDINGS: There is a diffuse right lung infiltrate. There is also patchy density in the left lower l obe. The there is some elevation of the right hemidiaphragm this is likely chronic.. IMPRESSION: Diffuse right lung pneumonic infiltrate Patchy left lower lobe infiltrate Short-term follow-up recommended until clear to exclude underlying lesion
--- NOTE | 2018-02-09 10:56 | PCM.PN ---
- General Info Date of Service: 02/09/18 Functional Status: Reports: Pain Controlled - Review of Systems General: Reports: Fever Pulmonary: Reports: Shortness of Breath Cardiovascular: Reports: Edema Systems Review Comment:: No acute events overnight. Temperature curve has improved since admission. Still feeling short of breath. Still requiring supplemental oxygen at 2-3 L. Does have some pleuritic type chest pain with deep inspiration. No nausea or vomiting. Lower extremity edema has improved from last night. - Patient Data Vitals - Most Recent: Last Vital Signs Temp 37.1 C 02/09/18 10:18 Pulse 73 02/09/18 10:18 Resp 18 02/09/18 10:18 BP 114/62 02/09/18 10:18 Pulse Ox 92 L 02/09/18 10:18 Weight - Most Recent: 83.597 kg I&O - Last 24 Hours: Intake & Output 02/08/18 02/09/18 02/09/18 22:59 06:59 14:59 Intake Total 480 1887 240 Output Total 900 Balance 480 987 240 Lab Results Last 24 Hours: Laboratory Results - last 24 hr 02/08/18 02/08/18 02/08/18 Range/Units 16:43 16:43 16:43 WBC (4.5-11.0) K/uL RBC (4.30-5.90) M/uL Hgb (12.0-15.0) g/dL Hct (40.0-54.0) % MCV (80-98) fL MCH (27-31) pg MCHC (32-36) % Plt Count (150-400) K/uL Neut % (Auto) (36-66) % Lymph % (Auto) (24-44) % [place] % (Auto) (2-6) % Eos % (Auto) (2-4) % Baso % (Auto) (0-1) % D-Dimer, Quantitative 1160 H (0.0-400.0) ng/mL Sodium 139 L (140-148) mmol/L Potassium 4.1 (3.6-5.2) mmol/L Chloride 102 (100-108) mmol/L Carbon Dioxide 31 (21-32) mmol/L Anion Gap 10.1 (5.0-14.0) mmol/L BUN 18 (7-18) mg/dL Creatinine 1.0 (0.8-1.3) mg/dL Est Cr Clr Drug Dosing 102.39 mL/min Estimated GFR (MDRD) > 60 (>60) Glucose 109 H (74-106) mg/dL Lactic Acid (0.4-2.0) mmol/L Calcium 8.4 L (8.5-10.1) mg/dL Troponin I (0.000-0.056) ng/mL C-Reactive Protein 9.59 H (0.0-0.3) mg/dL NT-Pro-B Natriuret Pep 223 H (5-125) pg/mL Urine Color Urine Appearance Urine pH (4.5-8.0) Ur Specific [place] (1.008-1.030) Urine Protein (NEGATIVE) mg/dL Urine Glucose (UA) (NEGATIVE) mg/dL Urine Ketones (NEGATIVE) mg/dL Urine Occult Blood (NEGATIVE) Urine Nitrite (NEGAITVE) Urine Bilirubin (NEGATIVE) Urine Urobilinogen (NORMAL) mg/dL Ur Leukocyte Esterase (NEGATIVE) Urine RBC (0-5) Urine WBC (0-5) Ur Epithelial Cells Amorphous Sediment Urine Bacteria Urine Mucus 02/08/18 02/08/18 02/08/18 Range/Units 16:43 17:02 19:37 WBC (4.5-11.0) K/uL RBC (4.30-5.90) M/uL Hgb (12.0-15.0) g/dL Hct (40.0-54.0) % MCV (80-98) fL MCH (27-31) pg MCHC (32-36) % Plt Count (150-400) K/uL Neut % (Auto) (36-66) % Lymph % (Auto) (24-44) % [place] % (Auto) (2-6) % Eos % (Auto) (2-4) % Baso % (Auto) (0-1) % D-Dimer, Quantitative (0.0-400.0) ng/mL Sodium (140-148) mmol/L Potassium (3.6-5.2) mmol/L Chloride (100-108) mmol/L Carbon Dioxide (21-32) mmol/L Anion Gap (5.0-14.0) mmol/L BUN (7-18) mg/dL Creatinine (0.8-1.3) mg/dL Est Cr Clr Drug Dosing mL/min Estimated GFR (MDRD) (>60) Glucose (74-106) mg/dL Lactic Acid 2.3 H (0.4-2.0) mmol/L Calcium (8.5-10.1) mg/dL Troponin I < 0.017 (0.000-0.056) ng/mL C-Reactive Protein (0.0-0.3) mg/dL NT-Pro-B Natriuret Pep (5-125) pg/mL Urine Color [place] Urine Appearance Clear Urine pH 6.0 (4.5-8.0) Ur Specific [place] 1.015 (1.008-1.030) Urine Protein Negative (NEGATIVE) mg/dL Urine Glucose (UA) Normal (NEGATIVE) mg/dL Urine Ketones Negative (NEGATIVE) mg/dL Urine Occult Blood Negative (NEGATIVE) Urine Nitrite Negative (NEGAITVE) Urine Bilirubin Small (NEGATIVE) Urine Urobilinogen Normal (NORMAL) mg/dL Ur Leukocyte Esterase Negative (NEGATIVE) Urine RBC 0-5 (0-5) Urine WBC 0-5 (0-5) Ur Epithelial Cells Not seen Amorphous Sediment Not seen Urine Bacteria Not seen Urine Mucus Not seen 02/09/18 02/09/18 02/09/18 Range/Units 01:25 05:00 05:00 WBC 11.2 H (4.5-11.0) K/uL RBC 4.16 L (4.30-5.90) M/uL Hgb 13.0 D (12.0-15.0) g/dL Hct 38.3 L (40.0-54.0) % MCV 92 (80-98) fL MCH 31 (27-31) pg MCHC 34 (32-36) % Plt Count 157 (150-400) K/uL Neut % (Auto) 73 H (36-66) % Lymph % (Auto) 18 L (24-44) % [place] % (Auto) 7 H (2-6) % Eos % (Auto) 2 (2-4) % Baso % (Auto) 0 (0-1) % D-Dimer, Quantitative (0.0-400.0) ng/mL Sodium 140 (140-148) mmol/L Potassium 3.8 (3.6-5.2) mmol/L Chloride 103 (100-108) mmol/L Carbon Dioxide 31 (21-32) mmol/L Anion Gap 6.1 (5.0-14.0) mmol/L BUN 18 (7-18) mg/dL Creatinine 0.9 (0.8-1.3) mg/dL Est Cr Clr Drug Dosing 113.77 mL/min Estimated GFR (MDRD) > 60 (>60) Glucose 86 (74-106) mg/dL Lactic Acid 0.9 (0.4-2.0) mmol/L Calcium 8.3 L (8.5-10.1) mg/dL Troponin I (0.000-0.056) ng/mL C-Reactive Protein 16.46 H (0.0-0.3) mg/dL NT-Pro-B Natriuret Pep (5-125) pg/mL Urine Color Urine Appearance Urine pH (4.5-8.0) Ur Specific [place] (1.008-1.030) Urine Protein (NEGATIVE) mg/dL Urine Glucose (UA) (NEGATIVE) mg/dL Urine Ketones (NEGATIVE) mg/dL Urine Occult Blood (NEGATIVE) Urine Nitrite (NEGAITVE) Urine Bilirubin (NEGATIVE) Urine Urobilinogen (NORMAL) mg/dL Ur Leukocyte Esterase (NEGATIVE) Urine RBC (0-5) Urine WBC (0-5) Ur Epithelial Cells Amorphous Sediment Urine Bacteria Urine Mucus Med Orders - Current: Current Medications Acarbose (Precose) 75 mg PO TIDMEALS [facility] Last Admin: 02/09/18 08:39 Dose: 75 mg Albuterol (Proventil Neb Soln) 2.5 mg NEB Q4H PRN PRN Reason: Shortness Of Breath/wheezing Albuterol/Ipratropium (Duoneb 3.0-0.5 Mg/3 Ml) 3 ml NEB QIDRT [facility] Last Admin: 02/09/18 08:00 Dose: 3 ml Alprazolam (Xanax) 1 - 2 mg PO BEDTIME PRN PRN Reason: Anxiety Last Admin: 02/08/18 23:34 Dose: 2 mg Amitriptyline HCl (Elavil) 150 mg PO BEDTIME [facility] Last Admin: 02/08/18 23:35 Dose: 150 mg Buspirone HCl (Buspar) 15 mg PO TID [facility] Last Admin: 02/09/18 08:37 Dose: 15 mg Calcium Carbonate/Glycine (Tums) 500 mg PO QPM [facility] Cholecalciferol (Vitamin D3) 5,000 units PO DAILY [facility] Last Admin: 02/09/18 08:38 Dose: 5,000 units Duloxetine HCl (Cymbalta) 30 mg PO QPM [facility] Last Admin: 02/08/18 23:57 Dose: Not Given Enoxaparin Sodium (Lovenox) 40 mg SUBCUT BEDTIME [facility] Fluticasone Propionate (Flonase) 0 gm ALBERTINA BEDTIME [facility] Folic Acid (Folic Acid) 1 mg PO DAILY [facility] Last Admin: 02/09/18 08:37 Dose: 1 mg Furosemide (Lasix) 20 mg PO DAILY [facility] Last Admin: 02/09/18 08:37 Dose: 20 mg Gabapentin (Neurontin) 600 mg PO TID [facility] Last Admin: 02/09/18 08:37 Dose: 600 mg Lactated Ringer's (Ringers, Lactated) 1,000 mls @ 25 mls/hr IV ASDIRECTED [facility] Last Admin: 02/09/18 04:32 Dose: 125 mls/hr Levofloxacin/Dextrose 750 mg/ (Premix) 150 mls @ 100 mls/hr IV Q24H [facility] Lorazepam (Ativan) 1 mg IV Q6H PRN PRN Reason: Nausea/Vomiting Multivitamins/Minerals (Thera M Plus) 1 tab PO BID [facility] Last Admin: 02/09/18 08:39 Dose: 1 tab Naloxegol (Movantik) 25 mg PO ACBREAKFAST [facility] Last Admin: 02/09/18 08:36 Dose: 25 mg Nicotine (Habitrol) 14 mg TRDERM DAILY [facility] Last Admin: 02/09/18 08:39 Dose: 14 mg Ondansetron HCl (Zofran) 4 mg IV Q4H PRN PRN Reason: Nausea/Vomiting Oxycodone HCl (Oxycodone) 10 mg PO Q6HR PRN PRN Reason: Pain Last Admin: 02/09/18 05:14 Dose: 10 mg Pantoprazole Sodium (Protonix) 40 mg PO BEDTIME [facility] Polyethylene Glycol (Miralax) 85 gm PO DAILY [facility] Last Admin: 02/09/18 08:40 Dose: 85 gm Propranolol HCl (Inderal) 80 mg PO TID [facility] Last Admin: 02/09/18 08:40 Dose: 80 mg Rizatriptan Benzoate (Maxalt [employer]) 10 mg PO ASDIRECTED PRN PRN Reason: migraines Senna/Docusate Sodium (Senna Plus) 2 tab PO BEDTIME [facility] Last Admin: 02/08/18 23:33 Dose: 2 tab Tamsulosin HCl (Flomax) 0.4 mg PO BEDTIME [facility] Tramadol HCl (Ultram) 50 mg PO Q4H PRN PRN Reason: Pain Last Admin: 02/09/18 07:09 Dose: 50 mg Discontinued Medications Albuterol/Ipratropium (Duoneb 3.0-0.5 Mg/3 Ml) 3 ml NEB QID [facility] Buspirone HCl (Buspar) 15 mg PO TID [facility] Last Admin: 02/08/18 23:33 Dose: 15 mg Duloxetine HCl (Cymbalta) 30 mg PO QPM [facility] Enoxaparin Sodium (Lovenox) 40 mg SUBCUT DAILY [facility] Last Admin: 02/08/18 20:23 Dose: 40 mg Fluticasone Propionate (Flonase) 0 gm ALBERTINA BEDTIME [facility] Fluticasone Propionate (Flonase) 0 gm ALBERTINA BEDTIME [facility] Last Admin: 02/08/18 23:33 Dose: 2 spr Furosemide (Lasix) 40 mg IVPUSH ONETIME ONE Stop: 02/08/18 19:38 Last Admin: 02/08/18 20:23 Dose: Not Given Furosemide (Lasix) 20 mg IVPUSH ONETIME ONE Stop: 02/08/18 19:39 Last Admin: 02/08/18 20:23 Dose: 20 mg Lactated Ringer's (Ringers, Lactated) 1,000 mls @ 1,000 mls/hr IV BOLUS ONE Stop: 02/08/18 18:34 Last Admin: 02/08/18 18:48 Dose: 1,000 mls/hr Levofloxacin/Dextrose 750 mg/ (Premix) 150 mls @ 100 mls/hr IV ONETIME ONE Stop: 02/08/18 19:26 Last Admin: 02/08/18 18:49 Dose: 100 mls/hr Multivitamins/Minerals (Thera M Plus) 1 tab PO BID [facility] Non-Formulary Medication (Alprazolam [Xanax]) 1 - 2 mg PO BEDTIME PRN PRN Reason: Anxiety Non-Formulary Medication (Amitriptyline Hcl [Amitriptyline Hcl]) 150 mg PO BEDTIME [facility] Last Admin: 02/08/18 23:05 Dose: Not Given Non-Formulary Medication (Calcium Citrate [Calcium Citrate]) 250 mg PO QPM [facility] Non-Formulary Medication (Duloxetine Hcl [Duloxetine Hcl]) 60 mg PO QAM [facility] Non-Formulary Medication (Multivitamin [Multivitamins]) 1 cap PO BID [facility] Last Admin: 02/08/18 23:05 Dose: Not Given Non-Formulary Medication (Propranolol [Inderal]) 80 mg PO TID [facility] Last Admin: 02/08/18 23:05 Dose: Not Given Non-Formulary Medication (Triamcinolone Acetonide [Nasacort Aq [place]]) 2 sprays INH BEDTIME [facility] Last Admin: 02/08/18 23:05 Dose: Not Given Non-Formulary Medication (Calcium Citrate [Calcium Citrate]) 250 mg PO QPM [facility] Last Admin: 02/08/18 23:34 Dose: Not Given Pantoprazole Sodium (Protonix Iv) 40 mg IV DAILY [facility] Last Admin: 02/08/18 20:23 Dose: 40 mg Pantoprazole Sodium (Protonix Iv) 40 mg IV BEDTIME [facility] Pneumococcal Polyvalent Vaccine (Pneumovax 23) 0.5 ml IM .ONCE ONE Stop: 02/09/18 09:01 Last Admin: 02/09/18 09:28 Dose: 0.5 ml Polyethylene Glycol (Miralax) 85 gm PO DAILY [facility] Polyethylene Glycol (Miralax) 85 gm PO DAILY [facility] Last Admin: 02/08/18 23:32 Dose: 85 gm Polyethylene Glycol (Miralax) Confirm Administered Dose 51 gm .ROUTE .STK-MED ONE Stop: 02/08/18 22:53 Last Admin: 02/08/18 23:02 Dose: Not Given Polyethylene Glycol (Miralax) Confirm Administered Dose 34 gm .ROUTE .STK-MED ONE Stop: 02/08/18 22:55 Last Admin: 02/08/18 23:02 Dose: Not Given Propranolol HCl (Inderal) 80 mg PO TID [facility] Last Admin: 02/09/18 08:38 Dose: 80 mg Tamsulosin HCl (Flomax) 0.4 mg PO DAILY [facility] Tamsulosin HCl (Flomax) 0.4 mg PO DAILY [facility] Last Admin: 02/08/18 23:32 Dose: 0.4 mg - Exam Quality Assessment: Supplemental Oxygen General: Alert, Oriented, Cooperative, No Acute Distress Neck: Supple Lungs: Normal Respiratory Effort, Crackles (right mid and lower lung) Cardiovascular: Regular Rate, Regular Rhythm GI/Abdominal Exam: No Distention Extremities: Pedal Edema (mild bilateral ankle edema). No: Increased Warmth Skin: Warm, Dry Psy/Mental Status: Alert, Normal Affect - Problem List Review Problem List Initiated/Reviewed/Updated: Yes - My Orders Last 24 Hours: My Active Orders 02/09/18 11:00 cefTRIAXone [Rocephin] 2 gm Sodium Chloride 0.9% [Normal Saline] 50 ml IV Q24H 02/10/18 05:00 BASIC METABOLIC PANEL,BMP [CHEM] Timed CBC W/O DIFF,HEMOGRAM [HEME] Timed (1) - Plan Plan:: ASSESSMENT / PLAN Right lower lobe pneumonia with acute hypoxic respiratory failure - infiltrate more impressive on chest x-ray today. Significant hypoxic respiratory failure requiring 2-3 L of supplemental oxygen. Fever curve better today. -Saline lock IV fluids -Antibiotic coverage with levofloxacin and ceftriaxone -Symptomatic management with cough suppressants -albuterol nebulizer every 4 hours as needed for wheezing and cough -Scheduled and as needed nebulizers History of Giovany-en-Y - recent difficulties with severe constipation causing bowel obstruction-like symptoms. -Monitor for site any signs of complication -Maintain aggressive bowel regimen Maintenance issues -Orders home meds: -Nutrition: regular diet -DVT: Enoxaparin -GI: PPI Disposition - anticipate discharge to home after the hospital stay Raymundo Watters MD
[2018-02-09] MEDS: cefTRIAXone 2 GM in Sodium Chloride 0.9% 50 ML IV SCH (12:15)
[2018-02-09] MEDS: Calcium Carbonate 500 MG Tab.Chew PO SCH (16:50)
[2018-02-09] MEDS: DULoxetine 30 MG Cap PO SCH (16:52)
[2018-02-09] MEDS ORDERED: DULoxetine 30 MG Cap PO SCH (17:00)
[2018-02-09] MEDS ORDERED: CALCIUM CITRATE 250 MG PO SCH (17:00)
[2018-02-09] MEDS: Levofloxacin/Dextrose 5%-Water 750 MG in Premix Bag 1 BAG IV SCH (18:12)
[2018-02-09] MEDS ORDERED: Fluticasone Propionate Nasal Spray 16 GM Bottle NAS SCH (21:00)
[2018-02-09] MEDS ORDERED: Pantoprazole 40 MG Vial IV SCH (21:00)
[2018-02-09] MEDS: Fluticasone Propionate Nasal Spray 16 GM Bottle NAS SCH (21:09)
[2018-02-09] MEDS: Tamsulosin 0.4 MG Cap.ER PO SCH (21:09)
[2018-02-09] MEDS: Enoxaparin 40 MG/0.4 ML Syringe SUBCUT SCH (21:11)
[2018-02-09] MEDS: Pantoprazole 40 MG Tab.CR PO SCH (21:11)
[2018-02-09] MEDS: ALPRAZolam 0.5 MG Tab PO PRN (21:17)
[2018-02-10] MEDS: oxyCODONE 5 MG Tab PO PRN ×4 (01:30→20:33)
[2018-02-10] MEDS: traMADol 50 MG Tab PO PRN ×4 (07:38→23:35)
[2018-02-10] MEDS: Naloxegol Oxalate 25 MG Tab PO SCH (07:38)
[2018-02-10] MEDS: Albuterol/Ipratropium 3.0-0.5 MG/3 ML Neb Soln NEB SCH ×4 (07:47→20:30)
[2018-02-10] MEDS: Propranolol 40 MG Tab PO SCH ×3 (08:37→20:32)
[2018-02-10] MEDS: Cholecalciferol (Vitamin D3) 1,000 Unit Tab PO SCH (08:37)
[2018-02-10] MEDS: Nicotine 14 MG/24 Hr Patch TRDERM SCH (08:37)
[2018-02-10] MEDS: busPIRone 5 MG Tab PO SCH ×3 (08:38→20:30)
[2018-02-10] MEDS: Furosemide 20 MG Tab PO SCH (08:38)
[2018-02-10] MEDS: Gabapentin 300 MG Cap PO SCH ×3 (08:38→20:32)
[2018-02-10] MEDS: Folic Acid 1 MG Tab PO SCH (08:38)
[2018-02-10] MEDS: Polyethylene Glycol 3350 Powder 17 GM Packet PO SCH (08:39)
[2018-02-10] MEDS: Multivitamins with Iron/Calcium/Folic Acid/Minerals Tab PO SCH ×2 (08:39→20:33)
[2018-02-10] MEDS: cefTRIAXone 2 GM in Sodium Chloride 0.9% 50 ML IV SCH (12:14)
--- NOTE | 2018-02-10 13:20 | PCM.PN ---
- General Info Date of Service: 02/10/18 Functional Status: Reports: Pain Controlled, Tolerating Diet - Review of Systems General: Reports: Weakness Pulmonary: Reports: Shortness of Breath Systems Review Comment:: No acute events overnight. Still doing some coughing and still feels short of breath. Has been up and walking some with supplemental oxygen. Was able to take a shower today. No fevers overnight. Bowels have been moving. Lower extremity edema slightly improved compared to yesterday but not completely resolved. - Patient Data Vitals - Most Recent: Last Vital Signs Temp 36.8 C 02/10/18 10:52 Pulse 76 02/10/18 10:56 Resp 16 02/10/18 10:52 BP 109/59 L 02/10/18 10:52 Pulse Ox 93 L 02/10/18 10:52 Weight - Most Recent: 83.597 kg I&O - Last 24 Hours: Intake & Output 02/09/18 02/10/18 02/10/18 22:59 06:59 14:59 Intake Total 1864 268 700 Output Total 1250 Balance 614 268 700 Lab Results Last 24 Hours: Laboratory Results - last 24 hr 02/10/18 02/10/18 Range/Units 06:01 06:01 WBC 9.8 (4.5-11.0) K/uL RBC 4.04 L (4.30-5.90) M/uL Hgb 12.6 (12.0-15.0) g/dL Hct 37.5 L (40.0-54.0) % MCV 93 (80-98) fL MCH 31 (27-31) pg MCHC 34 (32-36) % Plt Count 147 L (150-400) K/uL Sodium 139 L (140-148) mmol/L Potassium 4.3 (3.6-5.2) mmol/L Chloride 104 (100-108) mmol/L Carbon Dioxide 29 (21-32) mmol/L Anion Gap 10.3 (5.0-14.0) mmol/L BUN 9 (7-18) mg/dL Creatinine 0.8 (0.8-1.3) mg/dL Est Cr Clr Drug Dosing 128.16 mL/min Estimated GFR (MDRD) > 60 (>60) Glucose 87 (74-106) mg/dL Calcium 8.2 L (8.5-10.1) mg/dL Nick Results Last 24 Hours: Microbiology 02/08/18 18:00 Aerobic Blood Culture - Preliminary Blood - Venous NO GROWTH AFTER 1 DAY Anaerobic Blood Culture - Preliminary NO GROWTH AFTER 1 DAY Med Orders - Current: Current Medications Acarbose (Precose) 75 mg PO TIDMEALS [facility] Last Admin: 02/10/18 11:59 Dose: 75 mg Albuterol (Proventil Neb Soln) 2.5 mg NEB Q4H PRN PRN Reason: Shortness Of Breath/wheezing Albuterol/Ipratropium (Duoneb 3.0-0.5 Mg/3 Ml) 3 ml NEB QIDRT [facility] Last Admin: 02/10/18 10:55 Dose: 3 ml Alprazolam (Xanax) 1 - 2 mg PO BEDTIME PRN PRN Reason: Anxiety Last Admin: 02/09/18 21:17 Dose: 2 mg Amitriptyline HCl (Elavil) 150 mg PO BEDTIME [facility] Last Admin: 02/09/18 21:09 Dose: 150 mg Buspirone HCl (Buspar) 15 mg PO TID [facility] Last Admin: 02/10/18 08:38 Dose: 15 mg Calcium Carbonate/Glycine (Tums) 500 mg PO QPM [facility] Last Admin: 02/09/18 16:50 Dose: 500 mg Cholecalciferol (Vitamin D3) 5,000 units PO DAILY [facility] Last Admin: 02/10/18 08:37 Dose: 5,000 units Duloxetine HCl (Cymbalta) 30 mg PO QPM [facility] Last Admin: 02/09/18 16:52 Dose: 30 mg Duloxetine HCl (Cymbalta) 60 mg PO DAILY [facility] Enoxaparin Sodium (Lovenox) 40 mg SUBCUT BEDTIME [facility] Last Admin: 02/09/18 21:11 Dose: 40 mg Fluticasone Propionate (Flonase) 0 gm ALBERTINA BEDTIME [facility] Last Admin: 02/09/18 21:09 Dose: 2 spray Folic Acid (Folic Acid) 1 mg PO DAILY [facility] Last Admin: 02/10/18 08:38 Dose: 1 mg Furosemide (Lasix) 20 mg PO DAILY [facility] Last Admin: 02/10/18 08:38 Dose: 20 mg Gabapentin (Neurontin) 600 mg PO TID [facility] Last Admin: 06/08/18 08:38 Dose: 600 mg Lactated Ringer's (Ringers, Lactated) 1,000 mls @ 25 mls/hr IV ASDIRECTED [facility] Last Infusion: 02/09/18 11:28 Dose: 25 mls/hr Levofloxacin/Dextrose 750 mg/ (Premix) 150 mls @ 100 mls/hr IV Q24H [facility] Last Admin: 02/09/18 18:12 Dose: 100 mls/hr Ceftriaxone Sodium 2 gm/ (Sodium Chloride) 50 mls @ 100 mls/hr IV Q24H [facility] Last Admin: 02/10/18 12:14 Dose: 100 mls/hr Lorazepam (Ativan) 1 mg IV Q6H PRN PRN Reason: Nausea/Vomiting Multivitamins/Minerals (Thera M Plus) 1 tab PO BID [facility] Last Admin: 02/10/18 08:39 Dose: 1 tab Naloxegol (Movantik) 25 mg PO ACBREAKFAST [facility] Last Admin: 02/10/18 07:38 Dose: 25 mg Nicotine (Habitrol) 14 mg TRDERM DAILY [facility] Last Admin: 02/10/18 08:37 Dose: 14 mg Ondansetron HCl (Zofran) 4 mg IV Q4H PRN PRN Reason: Nausea/Vomiting Oxycodone HCl (Oxycodone) 10 mg PO Q6HR PRN PRN Reason: Pain Last Admin: 02/10/18 07:38 Dose: 10 mg Pantoprazole Sodium (Protonix) 40 mg PO BEDTIME [facility] Last Admin: 02/09/18 21:11 Dose: 40 mg Polyethylene Glycol (Miralax) 85 gm PO DAILY [facility] Last Admin: 02/10/18 08:39 Dose: 85 gm Propranolol HCl (Inderal) 80 mg PO TID [facility] Last Admin: 02/10/18 08:37 Dose: 80 mg Rizatriptan Benzoate (Maxalt [employer]) 10 mg PO ASDIRECTED PRN PRN Reason: migraines Senna/Docusate Sodium (Senna Plus) 2 tab PO BEDTIME [facility] Last Admin: 02/09/18 21:11 Dose: 2 tab Tamsulosin HCl (Flomax) 0.4 mg PO BEDTIME [facility] Last Admin: 02/09/18 21:09 Dose: 0.4 mg Tramadol HCl (Ultram) 50 mg PO Q4H PRN PRN Reason: Pain Last Admin: 02/10/18 12:15 Dose: 50 mg Discontinued Medications Albuterol/Ipratropium (Duoneb 3.0-0.5 Mg/3 Ml) 3 ml NEB QID [facility] Buspirone HCl (Buspar) 15 mg PO TID [facility] Last Admin: 02/08/18 23:33 Dose: 15 mg Duloxetine HCl (Cymbalta) 30 mg PO QPM [facility] Enoxaparin Sodium (Lovenox) 40 mg SUBCUT DAILY [facility] Last Admin: 02/08/18 20:23 Dose: 40 mg Fluticasone Propionate (Flonase) 0 gm ALBERTINA BEDTIME [facility] Fluticasone Propionate (Flonase) 0 gm ALBERTINA BEDTIME [facility] Last Admin: 02/08/18 23:33 Dose: 2 spr Furosemide (Lasix) 40 mg IVPUSH ONETIME ONE Stop: 02/08/18 19:38 Last Admin: 02/08/18 20:23 Dose: Not Given Furosemide (Lasix) 20 mg IVPUSH ONETIME ONE Stop: 02/08/18 19:39 Last Admin: 02/08/18 20:23 Dose: 20 mg Lactated Ringer's (Ringers, Lactated) 1,000 mls @ 1,000 mls/hr IV BOLUS ONE Stop: 02/08/18 18:34 Last Admin: 02/08/18 18:48 Dose: 1,000 mls/hr Levofloxacin/Dextrose 750 mg/ (Premix) 150 mls @ 100 mls/hr IV ONETIME ONE Stop: 02/08/18 19:26 Last Admin: 02/08/18 18:49 Dose: 100 mls/hr Multivitamins/Minerals (Thera M Plus) 1 tab PO BID [facility] Non-Formulary Medication (Alprazolam [Xanax]) 1 - 2 mg PO BEDTIME PRN PRN Reason: Anxiety Non-Formulary Medication (Amitriptyline Hcl [Amitriptyline Hcl]) 150 mg PO BEDTIME [facility] Last Admin: 02/08/18 23:05 Dose: Not Given Non-Formulary Medication (Calcium Citrate [Calcium Citrate]) 250 mg PO QPM [facility] Non-Formulary Medication (Duloxetine Hcl [Duloxetine Hcl]) 60 mg PO QAM [facility] Non-Formulary Medication (Multivitamin [Multivitamins]) 1 cap PO BID [facility] Last Admin: 02/08/18 23:05 Dose: Not Given Non-Formulary Medication (Propranolol [Inderal]) 80 mg PO TID [facility] Last Admin: 02/08/18 23:05 Dose: Not Given Non-Formulary Medication (Triamcinolone Acetonide [Nasacort Aq [place]]) 2 sprays INH BEDTIME [facility] Last Admin: 02/08/18 23:05 Dose: Not Given Non-Formulary Medication (Calcium Citrate [Calcium Citrate]) 250 mg PO QPM [facility] Last Admin: 02/08/18 23:34 Dose: Not Given Pantoprazole Sodium (Protonix Iv) 40 mg IV DAILY [facility] Last Admin: 02/08/18 20:23 Dose: 40 mg Pantoprazole Sodium (Protonix Iv) 40 mg IV BEDTIME [facility] Pneumococcal Polyvalent Vaccine (Pneumovax 23) 0.5 ml IM .ONCE ONE Stop: 02/09/18 09:01 Last Admin: 02/09/18 09:28 Dose: 0.5 ml Polyethylene Glycol (Miralax) 85 gm PO DAILY [facility] Polyethylene Glycol (Miralax) 85 gm PO DAILY [facility] Last Admin: 02/08/18 23:32 Dose: 85 gm Polyethylene Glycol (Miralax) Confirm Administered Dose 51 gm .ROUTE .STK-MED ONE Stop: 02/08/18 22:53 Last Admin: 02/08/18 23:02 Dose: Not Given Polyethylene Glycol (Miralax) Confirm Administered Dose 34 gm .ROUTE .STK-MED ONE Stop: 02/08/18 22:55 Last Admin: 02/08/18 23:02 Dose: Not Given Propranolol HCl (Inderal) 80 mg PO TID [facility] Last Admin: 02/09/18 08:38 Dose: 80 mg Tamsulosin HCl (Flomax) 0.4 mg PO DAILY [facility] Tamsulosin HCl (Flomax) 0.4 mg PO DAILY [facility] Last Admin: 02/08/18 23:32 Dose: 0.4 mg - Exam Quality Assessment: Supplemental Oxygen General: Alert, Oriented, Cooperative, Mild Distress Neck: Supple Lungs: Normal Respiratory Effort, Crackles (Right lung base) Cardiovascular: Regular Rate, Regular Rhythm GI/Abdominal Exam: Soft, No Distention Extremities: Pedal Edema (Trace bilateral ankle edema) Psy/Mental Status: Alert, Normal Affect - Problem List Review Problem List Initiated/Reviewed/Updated: Yes - My Orders Last 24 Hours: My Active Orders 02/11/18 05:00 CBC W/O DIFF,HEMOGRAM [HEME] Timed (1) 02/11/18 09:00 DULoxetine [Cymbalta] 60 mg PO DAILY - Plan Plan:: ASSESSMENT / PLAN Right lower lobe pneumonia with acute hypoxic respiratory failure - slight increase in supplemental oxygen requirement but clinically looks a little better today and lungs sound better on exam. He has been up and walking around but does feel very short of breath with activity. No fevers. -Saline lock IV fluids -Antibiotic coverage with levofloxacin and ceftriaxone -Symptomatic management with cough suppressants -albuterol nebulizer every 4 hours as needed for wheezing and cough -Scheduled and as needed nebulizers History of [id number]-[id number] - recent difficulties with severe constipation causing bowel obstruction-like symptoms. Bowels currently moving normally. -Monitor for site any signs of complication -Maintain aggressive bowel regimen Maintenance issues -Orders home meds: -Nutrition: regular diet -DVT: Enoxaparin -GI: PPI Disposition - anticipate discharge to home after the hospital stay Raymundo Watters MD
[2018-02-10] MEDS ORDERED: Benzonatate 100 MG Cap PO PRN (13:48)
[2018-02-10] MEDS ORDERED: guaiFENesin/Dextromethorphan 100-10 MG/5 ML Soln 10 ML Cup PO PRN (13:48)
[2018-02-10] MEDS: Calcium Carbonate 500 MG Tab.Chew PO SCH (16:18)
[2018-02-10] MEDS: DULoxetine 30 MG Cap PO SCH (16:18)
[2018-02-10] MEDS: Levofloxacin/Dextrose 5%-Water 750 MG in Premix Bag 1 BAG IV SCH (17:21)
[2018-02-10] MEDS: Fluticasone Propionate Nasal Spray 16 GM Bottle NAS SCH (20:31)
[2018-02-10] MEDS: Tamsulosin 0.4 MG Cap.ER PO SCH (20:31)
[2018-02-10] MEDS: Enoxaparin 40 MG/0.4 ML Syringe SUBCUT SCH (20:32)
[2018-02-10] MEDS: Pantoprazole 40 MG Tab.CR PO SCH (20:32)
[2018-02-10] MEDS: ALPRAZolam 0.5 MG Tab PO PRN (23:36)
[2018-02-11] MEDS: oxyCODONE 5 MG Tab PO PRN ×4 (03:09→21:55)
[2018-02-11] MEDS: traMADol 50 MG Tab PO PRN ×3 (07:46→16:44)
[2018-02-11] MEDS: Naloxegol Oxalate 25 MG Tab PO SCH (07:48)
[2018-02-11] MEDS: Albuterol/Ipratropium 3.0-0.5 MG/3 ML Neb Soln NEB SCH ×4 (07:49→20:21)
[2018-02-11] MEDS: Gabapentin 300 MG Cap PO SCH ×3 (08:56→20:20)
[2018-02-11] MEDS: Cholecalciferol (Vitamin D3) 1,000 Unit Tab PO SCH (08:56)
[2018-02-11] MEDS: Propranolol 40 MG Tab PO SCH ×3 (08:56→20:19)
[2018-02-11] MEDS: DULoxetine 30 MG Cap PO SCH ×2 (08:56→16:38)
[2018-02-11] MEDS: Multivitamins with Iron/Calcium/Folic Acid/Minerals Tab PO SCH ×2 (08:56→20:19)
[2018-02-11] MEDS: busPIRone 5 MG Tab PO SCH (08:56)
[2018-02-11] MEDS: Folic Acid 1 MG Tab PO SCH (08:56)
[2018-02-11] MEDS: Furosemide 20 MG Tab PO SCH (08:56)
[2018-02-11] MEDS: Polyethylene Glycol 3350 Powder 17 GM Packet PO SCH (08:57)
[2018-02-11] MEDS: Nicotine 14 MG/24 Hr Patch TRDERM SCH (08:57)
--- NOTE | 2018-02-11 11:18 | PCM.PN ---
- General Info Date of Service: 02/11/18 - Review of Systems General: Reports: Weakness. Denies: Fever Pulmonary: Reports: Shortness of Breath Systems Review Comment:: no acute events overnight. Patient does report an episode of diaphoresis last night but has felt much better since that time. Shortness of breath has improved. Coughing is better. Energy is better. Appetite has been improving. Lower extremity edema has essentially resolved. He is still on oxygen but is down to 2 L at this time. - Patient Data Vitals - Most Recent: Last Vital Signs Temp 36.2 C 02/11/18 07:51 Pulse 66 02/11/18 07:51 Resp 18 02/11/18 07:51 BP 109/59 L 02/11/18 07:51 Pulse Ox 97 02/11/18 08:19 Weight - Most Recent: 83.597 kg I&O - Last 24 Hours: Intake & Output 02/10/18 02/11/18 02/11/18 22:59 06:59 14:59 Intake Total 550 Output Total 600 Balance -50 Lab Results Last 24 Hours: Laboratory Results - last 24 hr 02/11/18 Range/Units 05:00 WBC 7.8 (4.5-11.0) K/uL RBC 4.00 L (4.30-5.90) M/uL Hgb 12.5 (12.0-15.0) g/dL Hct 36.9 L (40.0-54.0) % MCV 92 (80-98) fL MCH 31 (27-31) pg MCHC 34 (32-36) % Plt Count 152 (150-400) K/uL Nick Results Last 24 Hours: Microbiology 02/08/18 18:00 Aerobic Blood Culture - Preliminary Blood - Venous NO GROWTH AFTER 2 DAYS Anaerobic Blood Culture - Preliminary NO GROWTH AFTER 2 DAYS Med Orders - Current: Current Medications Acarbose (Precose) 75 mg PO TIDMEALS [facility] Last Admin: 02/11/18 07:48 Dose: 75 mg Albuterol (Proventil Neb Soln) 2.5 mg NEB Q4H PRN PRN Reason: Shortness Of Breath/wheezing Last Admin: 02/11/18 07:46 Dose: 2.5 mg Albuterol/Ipratropium (Duoneb 3.0-0.5 Mg/3 Ml) 3 ml NEB QIDRT [facility]Y Last Admin: 02/11/18 11:09 Dose: 3 ml Alprazolam (Xanax) 1 - 2 mg PO BEDTIME PRN PRN Reason: Anxiety Last Admin: 02/10/18 23:36 Dose: 2 mg Amitriptyline HCl (Elavil) 150 mg PO BEDTIME [facility] Last Admin: 02/10/18 20:30 Dose: 150 mg Benzonatate (Tessalon Perles) 100 mg PO TID PRN PRN Reason: Cough Buspirone HCl (Buspar) 15 mg PO TID [facility] Last Admin: 02/11/18 08:56 Dose: 15 mg Calcium Carbonate/Glycine (Tums) 500 mg PO QPM [facility] Last Admin: 02/10/18 16:18 Dose: 500 mg Cholecalciferol (Vitamin D3) 5,000 units PO DAILY [facility] Last Admin: 02/11/18 08:56 Dose: 5,000 units Duloxetine HCl (Cymbalta) 30 mg PO QPM [facility] Last Admin: 02/10/18 16:18 Dose: 30 mg Duloxetine HCl (Cymbalta) 60 mg PO DAILY [facility] Last Admin: 02/11/18 08:56 Dose: 60 mg Enoxaparin Sodium (Lovenox) 40 mg SUBCUT BEDTIME [facility] Last Admin: 02/10/18 20:32 Dose: 40 mg Fluticasone Propionate (Flonase) 0 gm ALBERTINA BEDTIME [facility] Last Admin: 02/10/18 20:31 Dose: 2 spray Folic Acid (Folic Acid) 1 mg PO DAILY [facility] Last Admin: 02/11/18 08:56 Dose: 1 mg Furosemide (Lasix) 20 mg PO DAILY [facility] Last Admin: 02/11/18 08:56 Dose: 20 mg Gabapentin (Neurontin) 600 mg PO TID [facility] Last Admin: 02/11/18 08:56 Dose: 600 mg Guaifenesin/Dextromethorphan (Robitussin Dm) 10 ml PO Q4H PRN PRN Reason: Cough Ceftriaxone Sodium 2 gm/ (Sodium Chloride) 50 mls @ 100 mls/hr IV Q24H [facility] Last Admin: 02/10/18 12:14 Dose: 100 mls/hr Lorazepam (Ativan) 1 mg IV Q6H PRN PRN Reason: Nausea/Vomiting Multivitamins/Minerals (Thera M Plus) 1 tab PO BID [facility] Last Admin: 02/11/18 08:56 Dose: 1 tab Naloxegol (Movantik) 25 mg PO ACBREAKFAST [facility] Last Admin: 02/11/18 07:48 Dose: 25 mg Nicotine (Habitrol) 14 mg TRDERM DAILY [facility] Last Admin: 02/11/18 08:57 Dose: 14 mg Ondansetron HCl (Zofran) 4 mg IV Q4H PRN PRN Reason: Nausea/Vomiting Oxycodone HCl (Oxycodone) 10 mg PO Q6HR PRN PRN Reason: Pain Last Admin: 02/11/18 08:57 Dose: 10 mg Pantoprazole Sodium (Protonix) 40 mg PO BEDTIME [facility] Last Admin: 02/10/18 20:32 Dose: 40 mg Polyethylene Glycol (Miralax) 85 gm PO DAILY [facility] Last Admin: 02/11/18 08:57 Dose: 85 gm Propranolol HCl (Inderal) 80 mg PO TID [facility] Last Admin: 02/11/18 08:56 Dose: 80 mg Rizatriptan Benzoate (Maxalt [employer]) 10 mg PO ASDIRECTED PRN PRN Reason: migraines Senna/Docusate Sodium (Senna Plus) 2 tab PO BEDTIME [facility] Last Admin: 02/10/18 20:33 Dose: 2 tab Tamsulosin HCl (Flomax) 0.4 mg PO BEDTIME [facility] Last Admin: 02/10/18 20:31 Dose: 0.4 mg Tramadol HCl (Ultram) 50 mg PO Q4H PRN PRN Reason: Pain Last Admin: 02/11/18 07:46 Dose: 50 mg Discontinued Medications Albuterol/Ipratropium (Duoneb 3.0-0.5 Mg/3 Ml) 3 ml NEB QID [facility] Buspirone HCl (Buspar) 15 mg PO TID [facility] Last Admin: 02/08/18 23:33 Dose: 15 mg Duloxetine HCl (Cymbalta) 30 mg PO QPM [facility] Enoxaparin Sodium (Lovenox) 40 mg SUBCUT DAILY [facility] Last Admin: 02/08/18 20:23 Dose: 40 mg Fluticasone Propionate (Flonase) 0 gm ALBERTINA BEDTIME [facility] Fluticasone Propionate (Flonase) 0 gm ALBERTINA BEDTIME [facility] Last Admin: 02/08/18 23:33 Dose: 2 spr Furosemide (Lasix) 40 mg IVPUSH ONETIME ONE Stop: 02/08/18 19:38 Last Admin: 02/08/18 20:23 Dose: Not Given Furosemide (Lasix) 20 mg IVPUSH ONETIME ONE Stop: 02/08/18 19:39 Last Admin: 02/08/18 20:23 Dose: 20 mg Lactated Ringer's (Ringers, Lactated) 1,000 mls @ 1,000 mls/hr IV BOLUS ONE Stop: 02/08/18 18:34 Last Admin: 02/08/18 18:48 Dose: 1,000 mls/hr Levofloxacin/Dextrose 750 mg/ (Premix) 150 mls @ 100 mls/hr IV ONETIME ONE Stop: 02/08/18 19:26 Last Admin: 02/08/18 18:49 Dose: 100 mls/hr Lactated Ringer's (Ringers, Lactated) 1,000 mls @ 25 mls/hr IV ASDIRECTED [facility] Last Infusion: 02/09/18 11:28 Dose: 25 mls/hr Levofloxacin/Dextrose 750 mg/ (Premix) 150 mls @ 100 mls/hr IV Q24H [facility] Last Admin: 02/10/18 17:21 Dose: 100 mls/hr Multivitamins/Minerals (Thera M Plus) 1 tab PO BID [facility] Non-Formulary Medication (Alprazolam [Xanax]) 1 - 2 mg PO BEDTIME PRN PRN Reason: Anxiety Non-Formulary Medication (Amitriptyline Hcl [Amitriptyline Hcl]) 150 mg PO BEDTIME [facility] Last Admin: 02/08/18 23:05 Dose: Not Given Non-Formulary Medication (Calcium Citrate [Calcium Citrate]) 250 mg PO QPM [facility] Non-Formulary Medication (Duloxetine Hcl [Duloxetine Hcl]) 60 mg PO QAM [facility] Non-Formulary Medication (Multivitamin [Multivitamins]) 1 cap PO BID [facility] Last Admin: 02/08/18 23:05 Dose: Not Given Non-Formulary Medication (Propranolol [Inderal]) 80 mg PO TID [facility] Last Admin: 02/08/18 23:05 Dose: Not Given Non-Formulary Medication (Triamcinolone Acetonide [Nasacort Aq [place]]) 2 sprays INH BEDTIME [facility] Last Admin: 02/08/18 23:05 Dose: Not Given Non-Formulary Medication (Calcium Citrate [Calcium Citrate]) 250 mg PO QPM [facility] Last Admin: 02/08/18 23:34 Dose: Not Given Pantoprazole Sodium (Protonix Iv) 40 mg IV DAILY [facility] Last Admin: 02/08/18 20:23 Dose: 40 mg Pantoprazole Sodium (Protonix Iv) 40 mg IV BEDTIME [facility] Pneumococcal Polyvalent Vaccine (Pneumovax 23) 0.5 ml IM .ONCE ONE Stop: 02/09/18 09:01 Last Admin: 02/09/18 09:28 Dose: 0.5 ml Polyethylene Glycol (Miralax) 85 gm PO DAILY [facility] Polyethylene Glycol (Miralax) 85 gm PO DAILY [facility] Last Admin: 02/08/18 23:32 Dose: 85 gm Polyethylene Glycol (Miralax) Confirm Administered Dose 51 gm .ROUTE .STK-MED ONE Stop: 02/08/18 22:53 Last Admin: 02/08/18 23:02 Dose: Not Given Polyethylene Glycol (Miralax) Confirm Administered Dose 34 gm .ROUTE .STK-MED ONE Stop: 02/08/18 22:55 Last Admin: 02/08/18 23:02 Dose: Not Given Propranolol HCl (Inderal) 80 mg PO TID [facility] Last Admin: 02/09/18 08:38 Dose: 80 mg Tamsulosin HCl (Flomax) 0.4 mg PO DAILY [facility] Tamsulosin HCl (Flomax) 0.4 mg PO DAILY [facility] Last Admin: 02/08/18 23:32 Dose: 0.4 mg - Exam Quality Assessment: Supplemental Oxygen General: Alert, Oriented, Cooperative, No Acute Distress Neck: Supple Lungs: Normal Respiratory Effort, Crackles (right lung base) Cardiovascular: Regular Rate, Regular Rhythm GI/Abdominal Exam: No Distention Extremities: Pedal Edema (trace bilateral ankle edema) Psy/Mental Status: Alert, Normal Affect - Problem List Review Problem List Initiated/Reviewed/Updated: Yes - My Orders Last 24 Hours: My Active Orders 02/10/18 13:48 Benzonatate [Tessalon Perles] 100 mg PO TID PRN Dextromethorphan/guaiFENesin [Robitussin DM] 10 ml PO Q4H PRN 02/11/18 09:00 DULoxetine [Cymbalta] 60 mg PO DAILY 02/11/18 11:17 Convert IV to Saline Lock [OM.PC] Routine 02/11/18 18:00 Levofloxacin [Levaquin] 250 mg PO Q24H Levofloxacin [Levaquin] 500 mg PO Q24H - Plan Plan:: ASSESSMENT / PLAN Right lower lobe pneumonia with acute hypoxic respiratory failure - clinically feeling better and oxygenation is improving.lung exam continues to improve each day. -Saline lock IV fluids -Antibiotic coverage with levofloxacin (change to oral) and ceftriaxone -Symptomatic management with cough suppressants -albuterol nebulizer every 4 hours as needed for wheezing and cough -Scheduled and as needed nebulizers History of Giovany-en-Y - recent difficulties with severe constipation causing bowel obstruction-like symptoms. Bowels currently moving normally. -Monitor for site any signs of complication -Maintain aggressive bowel regimen Maintenance issues -Orders home meds: -Nutrition: regular diet -DVT: Enoxaparin -GI: PPI Disposition - anticipate discharge to home after the hospital stay, possibly tomorrow if stable overnight Raymunod Watters MD
[2018-02-11] MEDS: cefTRIAXone 2 GM in Sodium Chloride 0.9% 50 ML IV SCH (11:30)
[2018-02-11] MEDS: busPIRone 10 MG, busPIRone 5 MG PO SCH ×4 (13:41→20:20)
[2018-02-11] MEDS: Calcium Carbonate 500 MG Tab.Chew PO SCH (16:38)
[2018-02-11] MEDS ORDERED: Levofloxacin 250 MG Tab PO SCH (18:00)
[2018-02-11] MEDS ORDERED: Levofloxacin 500 MG Tab PO SCH (18:00)
[2018-02-11] MEDS ORDERED: Levofloxacin 500 MG Tab ONE (20:15)
[2018-02-11] MEDS: Enoxaparin 40 MG/0.4 ML Syringe SUBCUT SCH (20:19)
[2018-02-11] MEDS: Tamsulosin 0.4 MG Cap.ER PO SCH (20:20)
[2018-02-11] MEDS: Fluticasone Propionate Nasal Spray 16 GM Bottle NAS SCH (20:26)
[2018-02-11] MEDS: Pantoprazole 40 MG Tab.CR PO SCH (20:29)
[2018-02-11] MEDS: ALPRAZolam 0.5 MG Tab PO PRN (21:56)
[2018-02-12] MEDS: oxyCODONE 5 MG Tab PO PRN ×3 (03:24→21:36)
[2018-02-12] MEDS: traMADol 50 MG Tab PO PRN ×4 (06:02→23:52)
[2018-02-12] MEDS: Albuterol/Ipratropium 3.0-0.5 MG/3 ML Neb Soln NEB SCH ×4 (07:23→21:37)
[2018-02-12] MEDS: Naloxegol Oxalate 25 MG Tab PO SCH (07:54)
[2018-02-12] MEDS: busPIRone 10 MG, busPIRone 5 MG PO SCH ×6 (09:21→21:28)
[2018-02-12] MEDS: Furosemide 20 MG Tab PO SCH (09:21)
[2018-02-12] MEDS: Propranolol 40 MG Tab PO SCH ×3 (09:22→21:31)
[2018-02-12] MEDS: Cholecalciferol (Vitamin D3) 1,000 Unit Tab PO SCH (09:22)
[2018-02-12] MEDS: Gabapentin 300 MG Cap PO SCH ×3 (09:22→21:31)
[2018-02-12] MEDS: Nicotine 14 MG/24 Hr Patch TRDERM SCH (09:23)
[2018-02-12] MEDS: DULoxetine 30 MG Cap PO SCH ×2 (09:23→16:23)
[2018-02-12] MEDS: Folic Acid 1 MG Tab PO SCH (09:25)
[2018-02-12] MEDS: Polyethylene Glycol 3350 Powder 17 GM Packet PO SCH (10:22)
[2018-02-12] MEDS: Multivitamins with Iron/Calcium/Folic Acid/Minerals Tab PO SCH ×2 (10:23→21:33)
--- NOTE | 2018-02-12 10:52 | PCM.PN ---
- General Info Date of Service: 02/12/18 Functional Status: Reports: Pain Controlled, Tolerating Diet - Review of Systems General: Reports: Weakness. Denies: Fever Pulmonary: Reports: Shortness of Breath Systems Review Comment:: No acute events overnight. Slowly feeling better with less shortness of breath. Minimal cough at this time. No chest pain today. Still requiring 2 L of supplemental oxygen. Appetite has been okay. - Patient Data Vitals - Most Recent: Last Vital Signs Temp 35.7 C 02/12/18 08:00 Pulse 72 02/12/18 08:00 Resp 16 02/12/18 09:26 BP 114/56 L 02/12/18 08:00 Pulse Ox 95 02/12/18 09:26 Weight - Most Recent: 83.597 kg I&O - Last 24 Hours: Intake & Output 02/11/18 02/12/18 02/12/18 22:59 06:59 14:59 Intake Total 600 600 Output Total 700 900 Balance -100 -300 Nick Results Last 24 Hours: Microbiology 02/08/18 18:00 Aerobic Blood Culture - Preliminary Blood - Venous NO GROWTH AFTER 3 DAYS Anaerobic Blood Culture - Preliminary NO GROWTH AFTER 3 DAYS Med Orders - Current: Current Medications Acarbose (Precose) 75 mg PO TIDMEALS [facility] Last Admin: 02/12/18 07:54 Dose: 75 mg Albuterol (Proventil Neb Soln) 2.5 mg NEB Q4H PRN PRN Reason: Shortness Of Breath/wheezing Last Admin: 02/11/18 07:46 Dose: 2.5 mg Albuterol/Ipratropium (Duoneb 3.0-0.5 Mg/3 Ml) 3 ml NEB QIDRT [facility] Last Admin: 02/12/18 07:23 Dose: 3 ml Alprazolam (Xanax) 1 - 2 mg PO BEDTIME PRN PRN Reason: Anxiety Last Admin: 02/11/18 21:56 Dose: 2 mg Amitriptyline HCl (Elavil) 150 mg PO BEDTIME [facility] Last Admin: 02/11/18 20:20 Dose: 150 mg Benzonatate (Tessalon Perles) 100 mg PO TID PRN PRN Reason: Cough Buspirone HCl 10 mg/ Buspirone (HCl 5 mg) 15 mg PO TID [facility] Last Admin: 02/12/18 09:21 Dose: 15 mg Calcium Carbonate/Glycine (Tums) 500 mg PO QPM [facility] Last Admin: 02/11/18 16:38 Dose: 500 mg Cholecalciferol (Vitamin D3) 5,000 units PO DAILY [facility] Last Admin: 02/12/18 09:22 Dose: 5,000 units Duloxetine HCl (Cymbalta) 30 mg PO QPM [facility] Last Admin: 02/11/18 16:38 Dose: 30 mg Duloxetine HCl (Cymbalta) 60 mg PO DAILY [facility] Last Admin: 02/12/18 09:23 Dose: 60 mg Enoxaparin Sodium (Lovenox) 40 mg SUBCUT BEDTIME [facility] Last Admin: 02/11/18 20:19 Dose: 40 mg Fluticasone Propionate (Flonase) 0 gm ALBERTINA BEDTIME [facility] Last Admin: 02/11/18 20:26 Dose: 2 spray Folic Acid (Folic Acid) 1 mg PO DAILY [facility] Last Admin: 02/12/18 09:25 Dose: 1 mg Furosemide (Lasix) 20 mg PO DAILY [facility] Last Admin: 02/12/18 09:21 Dose: 20 mg Gabapentin (Neurontin) 600 mg PO TID [facility] Last Admin: 02/12/18 09:22 Dose: 600 mg Guaifenesin/Dextromethorphan (Robitussin Dm) 10 ml PO Q4H PRN PRN Reason: Cough Ceftriaxone Sodium 2 gm/ (Sodium Chloride) 50 mls @ 100 mls/hr IV Q24H [facility] Last Admin: 02/11/18 11:30 Dose: 100 mls/hr Levofloxacin 500 mg/ (Levofloxacin 250 mg) 750 mg PO Q24H [facility] Last Admin: 02/11/18 20:20 Dose: 750 mg Lorazepam (Ativan) 1 mg IV Q6H PRN PRN Reason: Nausea/Vomiting Multivitamins/Minerals (Thera M Plus) 1 tab PO BID [facility] Last Admin: 02/12/18 10:23 Dose: 1 tab Naloxegol (Movantik) 25 mg PO ACBREAKFAST [facility] Last Admin: 02/12/18 07:54 Dose: 25 mg Nicotine (Habitrol) 14 mg TRDERM DAILY [facility] Last Admin: 02/12/18 09:23 Dose: 14 mg Ondansetron HCl (Zofran) 4 mg IV Q4H PRN PRN Reason: Nausea/Vomiting Oxycodone HCl (Oxycodone) 10 mg PO Q6HR PRN PRN Reason: Pain Last Admin: 02/12/18 03:24 Dose: 10 mg Pantoprazole Sodium (Protonix) 40 mg PO BEDTIME [facility] Last Admin: 02/11/18 20:29 Dose: 40 mg Polyethylene Glycol (Miralax) 85 gm PO DAILY [facility] Last Admin: 02/12/18 10:22 Dose: 85 gm Propranolol HCl (Inderal) 80 mg PO TID [facility] Last Admin: 02/12/18 09:22 Dose: 80 mg Rizatriptan Benzoate (Maxalt [employer]) 10 mg PO ASDIRECTED PRN PRN Reason: migraines Last Admin: 02/11/18 20:20 Dose: 10 mg Senna/Docusate Sodium (Senna Plus) 2 tab PO BEDTIME [facility] Last Admin: 02/11/18 20:19 Dose: 2 tab Tamsulosin HCl (Flomax) 0.4 mg PO BEDTIME [facility] Last Admin: 02/11/18 20:20 Dose: 0.4 mg Tramadol HCl (Ultram) 50 mg PO Q4H PRN PRN Reason: Pain Last Admin: 02/12/18 06:02 Dose: 50 mg Discontinued Medications Albuterol/Ipratropium (Duoneb 3.0-0.5 Mg/3 Ml) 3 ml NEB QID [facility] Buspirone HCl (Buspar) 15 mg PO TID [facility] Last Admin: 02/08/18 23:33 Dose: 15 mg Buspirone HCl (Buspar) 15 mg PO TID [facility] Last Admin: 02/11/18 08:56 Dose: 15 mg Duloxetine HCl (Cymbalta) 30 mg PO QPM [facility] Enoxaparin Sodium (Lovenox) 40 mg SUBCUT DAILY [facility] Last Admin: 02/08/18 20:23 Dose: 40 mg Fluticasone Propionate (Flonase) 0 gm ALBERTINA BEDTIME [facility] Fluticasone Propionate (Flonase) 0 gm ALBERTINA BEDTIME [facility] Last Admin: 02/08/18 23:33 Dose: 2 spr Furosemide (Lasix) 40 mg IVPUSH ONETIME ONE Stop: 02/08/18 19:38 Last Admin: 02/08/18 20:23 Dose: Not Given Furosemide (Lasix) 20 mg IVPUSH ONETIME ONE Stop: 02/08/18 19:39 Last Admin: 02/08/18 20:23 Dose: 20 mg Lactated Ringer's (Ringers, Lactated) 1,000 mls @ 1,000 mls/hr IV BOLUS ONE Stop: 02/08/18 18:34 Last Admin: 02/08/18 18:48 Dose: 1,000 mls/hr Levofloxacin/Dextrose 750 mg/ (Premix) 150 mls @ 100 mls/hr IV ONETIME ONE Stop: 02/08/18 19:26 Last Admin: 02/08/18 18:49 Dose: 100 mls/hr Lactated Ringer's (Ringers, Lactated) 1,000 mls @ 25 mls/hr IV ASDIRECTED [facility] Last Infusion: 02/09/18 11:28 Dose: 25 mls/hr Levofloxacin/Dextrose 750 mg/ (Premix) 150 mls @ 100 mls/hr IV Q24H [facility] Last Admin: 02/10/18 17:21 Dose: 100 mls/hr Levofloxacin (Levaquin) Confirm Administered Dose 1,000 mg .ROUTE .STK-MED ONE Stop: 02/11/18 20:16 Last Admin: 02/11/18 20:30 Dose: Not Given Multivitamins/Minerals (Thera M Plus) 1 tab PO BID [facility] Non-Formulary Medication (Alprazolam [Xanax]) 1 - 2 mg PO BEDTIME PRN PRN Reason: Anxiety Non-Formulary Medication (Amitriptyline Hcl [Amitriptyline Hcl]) 150 mg PO BEDTIME [facility] Last Admin: 02/08/18 23:05 Dose: Not Given Non-Formulary Medication (Calcium Citrate [Calcium Citrate]) 250 mg PO QPM [facility] Non-Formulary Medication (Duloxetine Hcl [Duloxetine Hcl]) 60 mg PO QAM [facility] Non-Formulary Medication (Multivitamin [Multivitamins]) 1 cap PO BID [facility] Last Admin: 02/08/18 23:05 Dose: Not Given Non-Formulary Medication (Propranolol [Inderal]) 80 mg PO TID [facility] Last Admin: 02/08/18 23:05 Dose: Not Given Non-Formulary Medication (Triamcinolone Acetonide [Nasacort Aq [place]]) 2 sprays INH BEDTIME [facility] Last Admin: 02/08/18 23:05 Dose: Not Given Non-Formulary Medication (Calcium Citrate [Calcium Citrate]) 250 mg PO QPM [facility] Last Admin: 02/08/18 23:34 Dose: Not Given Pantoprazole Sodium (Protonix Iv) 40 mg IV DAILY [facility] Last Admin: 02/08/18 20:23 Dose: 40 mg Pantoprazole Sodium (Protonix Iv) 40 mg IV BEDTIME [facility] Pneumococcal Polyvalent Vaccine (Pneumovax 23) 0.5 ml IM .ONCE ONE Stop: 02/09/18 09:01 Last Admin: 02/09/18 09:28 Dose: 0.5 ml Polyethylene Glycol (Miralax) 85 gm PO DAILY [facility] Polyethylene Glycol (Miralax) 85 gm PO DAILY [facility] Last Admin: 02/08/18 23:32 Dose: 85 gm Polyethylene Glycol (Miralax) Confirm Administered Dose 51 gm .ROUTE .STK-MED ONE Stop: 02/08/18 22:53 Last Admin: 02/08/18 23:02 Dose: Not Given Polyethylene Glycol (Miralax) Confirm Administered Dose 34 gm .ROUTE .STK-MED ONE Stop: 02/08/18 22:55 Last Admin: 02/08/18 23:02 Dose: Not Given Propranolol HCl (Inderal) 80 mg PO TID [facility] Last Admin: 02/09/18 08:38 Dose: 80 mg Tamsulosin HCl (Flomax) 0.4 mg PO DAILY [facility] Tamsulosin HCl (Flomax) 0.4 mg PO DAILY [facility] Last Admin: 02/08/18 23:32 Dose: 0.4 mg - Exam Quality Assessment: Supplemental Oxygen General: Alert, Oriented, Cooperative, No Acute Distress Neck: Supple Lungs: Normal Respiratory Effort, Crackles (right lung base) Cardiovascular: Regular Rate, Regular Rhythm GI/Abdominal Exam: No Distention Extremities: No Pedal Edema Psy/Mental Status: Alert, Normal Affect - Problem List Review Problem List Initiated/Reviewed/Updated: Yes - My Orders Last 24 Hours: My Active Orders 02/11/18 11:17 Convert IV to Saline Lock [OM.PC] Routine 02/11/18 14:00 Buspirone [Buspar] 15 mg PO TID 02/11/18 20:00 Levofloxacin [Levaquin] 750 mg PO Q24H - Plan Plan:: ASSESSMENT / PLAN Right lower lobe pneumonia with acute hypoxic respiratory failure - clinically feeling better and oxygenation is improving. Still requiring supplemental oxygen but otherwise doing well. -Saline lock IV fluids -Antibiotic coverage with levofloxacin (change to oral) and ceftriaxone (plan to discontinue at time of discharge) -Symptomatic management with cough suppressants -albuterol nebulizer every 4 hours as needed for wheezing and cough -Scheduled and as needed nebulizers History of Giovany-en-Y - recent difficulties with severe constipation causing bowel obstruction-like symptoms. Bowels currently moving normally. -Monitor for site any signs of complication -Maintain aggressive bowel regimen Maintenance issues -Orders home meds: -Nutrition: regular diet -DVT: Enoxaparin -GI: PPI Disposition - anticipate discharge to home after the hospital stay, possibly tomorrow if stable and can be weaned off of oxygen overnight Raymundo Watters MD
[2018-02-12] MEDS: cefTRIAXone 2 GM in Sodium Chloride 0.9% 50 ML IV SCH (12:18)
[2018-02-12] MEDS: Calcium Carbonate 500 MG Tab.Chew PO SCH (16:23)
[2018-02-12] MEDS: Enoxaparin 40 MG/0.4 ML Syringe SUBCUT SCH (21:27)
[2018-02-12] MEDS: Fluticasone Propionate Nasal Spray 16 GM Bottle NAS SCH (21:30)
[2018-02-12] MEDS: Tamsulosin 0.4 MG Cap.ER PO SCH (21:30)
[2018-02-12] MEDS: Pantoprazole 40 MG Tab.CR PO SCH (21:33)
[2018-02-13] MEDS: Naloxegol Oxalate 25 MG Tab PO SCH (07:33)
[2018-02-13] MEDS: Albuterol/Ipratropium 3.0-0.5 MG/3 ML Neb Soln NEB SCH ×2 (07:38→11:12)
[2018-02-13] MEDS: traMADol 50 MG Tab PO PRN ×2 (07:41→12:01)
[2018-02-13] MEDS: oxyCODONE 5 MG Tab PO PRN (09:18)
[2018-02-13] MEDS: Propranolol 40 MG Tab PO SCH (09:19)
[2018-02-13] MEDS: Gabapentin 300 MG Cap PO SCH (09:20)
[2018-02-13] MEDS: Polyethylene Glycol 3350 Powder 17 GM Packet PO SCH (09:20)
[2018-02-13] MEDS: Furosemide 20 MG Tab PO SCH (09:21)
[2018-02-13] MEDS: DULoxetine 30 MG Cap PO SCH (09:21)
[2018-02-13] MEDS: busPIRone 10 MG, busPIRone 5 MG PO SCH ×2 (09:21)
[2018-02-13] MEDS: Folic Acid 1 MG Tab PO SCH (09:22)
[2018-02-13] MEDS: Multivitamins with Iron/Calcium/Folic Acid/Minerals Tab PO SCH (09:22)
[2018-02-13] MEDS: Cholecalciferol (Vitamin D3) 1,000 Unit Tab PO SCH (09:22)
[2018-02-13] MEDS: Nicotine 14 MG/24 Hr Patch TRDERM SCH (09:27)
[2018-02-13 10:26] VITALS: BP 119/78
--- NOTE | 2018-02-13 11:42 | PCM.DCSUM1 ---
Discharge Summary - Hospital Course Brief History: Mr. Smith is a 47-year-old gentleman who was admitted through the emergency department with hypoxia and fever secondary to a right lung pneumonia. - Discharge Data Discharge Date: 02/13/18 Discharge Disposition: Home, W Home Health Agency 06 Condition: Fair - Discharge Diagnosis/Problem(s) (1) Pneumonia SNOMED Code(s): 349538410 ICD Code: J18.9 - PNEUMONIA, UNSPECIFIED ORGANISM Status: Acute Priority : High Current Visit: Yes Qualifiers: Pneumonia type: due to unspecified organism Laterality: right Lung location: lower lobe of lung Qualified Code(s): J18.1 - Lobar pneumonia, unspecified organism (2) Hypoxemia SNOMED Code(s): 742971084 ICD Code: R09.02 - HYPOXEMIA Status: Acute Priority: High Current Visit : Yes (3) Post traumatic stress disorder (PTSD) SNOMED Code(s): 81289678 ICD Code: F43.10 - POST-TRAUMATIC STRESS DISORDER, UNSPECIFIED Status: Chronic Current Visit: No - Patient Summary/Data Hospital Course: 47 yo male was referred to our ER from a clinic in [place], [place] for SOB, mild hypoxia. Was discharged 2 days ago from here after an admission for partial SBO. Sx's began last night. Was noted in the clinic to have a low grade fever of 100.8F, sats of 88% on RA, and a CXR was suggestive of R sided pneumonia. His WBC count was 13. Both legs were noted to be swollen, and a hx was noted of a recent discontinuation of furosemide. No vomiting in the past few days. Has a pHx of PE on the right, CT scan of the chest was not performed as it was felt with the large pneumonia in the right lung this explained his hypoxia current symptoms. Blood cultures were obtained in the emergency department and he was started on IV antibiotic therapy with levofloxacin and ceftriaxone. He gradually improved during hospitalization, initially was given IV fluids and did require supplemental oxygen. Blood cultures remained negative throughout the hospitalization. Prior to discharge hypoxia resolved and he was on room air without significant oxygen desaturation. He had been afebrile prior to discharge with normalization of his white blood cell count. He will be discharged home with an additional 5 days of oral antibiotic therapy with levofloxacin 500 mg by mouth daily. Activity will be as tolerated and he will resume his usual diet. Follow-up appointment will be scheduled with his primary care provider within one week and a chest x-ray will be obtained time of that appointment. - Patient Instructions Diet: Usual Diet as Tolerated Activity: As Tolerated Other/Special Instructions: Please schedule follow-up appointment with primary care provider within one week. Chest x-ray should be obtained at the time of follow-up appointment. - Discharge Plan Prescriptions/Med Rec: Levofloxacin [Levaquin] 500 mg PO DAILY #5 tab Home Medications: Home Meds Cholecalciferol (Vitamin D3) [Vitamin D3] 5,000 units PO DAILY 11/21/13 [History ] Diclofenac Sodium [Voltaren 1% Gel] 1 applic TP QID 11/21/13 [History] Multivitamin [Multivitamins] 1 cap PO BID 11/21/13 [History] Propranolol [Inderal] 80 mg PO TID 11/21/13 [History] Vitamin B Complex 1 each PO ACBREAKFAST 11/21/13 [History] Rizatriptan Benzoate [Rizatriptan] 10 mg SL ASDIRECTED PRN 01/16/15 [History] Triamcinolone Acetonide [Nasacort AQ [place]] 2 sprays INH BEDTIME 01/16/15 [ History] Gabapentin [Neurontin] 600 mg PO TID 07/02/16 [History] Calcium Citrate 250 mg PO QPM 10/09/16 [History] Cyanocobalamin (Vitamin B-12) [Cyanocobalamin Injection] 1,000 mcg IJ .[id number] 10/06/17 [History] DULoxetine HCl [Duloxetine HCl] 60 mg PO QAM 10/06/17 [History] Folic Acid 1 mg PO DAILY 10/06/17 [History] Zinc Gluconate [Zinc] 50 mg PO DAILY 10/06/17 [History] busPIRone [Buspar] 15 mg PO TID 10/06/17 [History] ALPRAZolam [Xanax] 1 - 2 mg PO BEDTIME PRN 12/28/17 [History] DULoxetine HCl [Cymbalta] 30 mg PO QPM 12/28/17 [History] Ergocalciferol (Vitamin D2) [Vitamin D2] 50,000 unit PO MOWEFR 12/28/17 [History ] Amitriptyline HCl 150 mg PO BEDTIME 02/01/18 [History] traMADol [Ultram] 50 mg PO Q4H PRN 02/01/18 [History] Acarbose [Precose] 75 mg PO TIDMEALS tablet 02/06/18 [Rx] Naloxegol Oxalate [Movantik] 25 mg PO ACBREAKFAST #90 tablet 02/06/18 [Rx] Polyethylene Glycol 3350 [MiraLAX] 85 gm PO DAILY #100 packet 02/06/18 [Rx] Sennosides/Docusate Sodium [Senna Plus Tablet] 2 tab PO BEDTIME #60 tab [Rx] Furosemide [Lasix] 20 mg PO DAILY 02/08/18 [History] Tamsulosin [Flomax] 0.4 mg PO DAILY 02/08/18 [History] oxyCODONE 10 mg PO Q6HR PRN 02/08/18 [History] Levofloxacin [Levaquin] 500 mg PO DAILY #5 tab 02/13/18 [Rx] Referrals: Connor Lopez MD [Primary Care Provider] - - Discharge Summary/Plan Comment DC Time >30 min.: No - Patient Data Vitals - Most Recent: Last Vital Signs Temp 96.8 F 02/13/18 10:25 Pulse 75 02/13/18 10:25 Resp 18 02/13/18 10:25 BP 119/78 02/13/18 10:25 Pulse Ox 90 L 02/13/18 10:25 Weight - Most Recent: 184 lb 4.797 oz I&O - Last 24 hours: Intake & Output 02/12/18 02/13/18 02/13/18 22:59 06:59 14:59 Output Total 900 700 Balance -900 -700 [place]CE[place]N Results - Last 24 hrs: Microbiology 02/08/18 18:00 Aerobic Blood Culture - Preliminary Blood - Venous NO GROWTH AFTER 4 DAYS Anaerobic Blood Culture - Preliminary NO GROWTH AFTER 4 DAYS Med Orders - Current: Current Medications Acarbose (Precose) 75 mg PO TIDMEALS JUDY Last Admin: 02/13/18 07:33 Dose: 75 mg Albuterol (Proventil Neb Soln) 2.5 mg NEB Q4H PRN PRN Reason: Shortness Of Breath/wheezing Last Admin: 02/11/18 07:46 Dose: 2.5 mg Albuterol/Ipratropium (Duoneb 3.0-0.5 Mg/3 Ml) 3 ml NEB QIDRT [facility] Last Admin: 02/13/18 11:12 Dose: 3 ml Alprazolam (Xanax) 1 - 2 mg PO BEDTIME PRN PRN Reason: Anxiety Last Admin: 02/11/18 21:56 Dose: 2 mg Amitriptyline HCl (Elavil) 150 mg PO BEDTIME [facility] Last Admin: 02/12/18 21:29 Dose: 150 mg Benzonatate (Tessalon Perles) 100 mg PO TID PRN PRN Reason: Cough Buspirone HCl 10 mg/ Buspirone (HCl 5 mg) 15 mg PO TID [facility] Last Admin: 02/13/18 09:21 Dose: 15 mg Calcium Carbonate/Glycine (Tums) 500 mg PO QPM [facility] Last Admin: 02/12/18 16:23 Dose: 500 mg Cholecalciferol (Vitamin D3) 5,000 units PO DAILY [facility] Last Admin: 02/13/18 09:22 Dose: 5,000 units Duloxetine HCl (Cymbalta) 30 mg PO QPM [facility] Last Admin: 02/12/18 16:23 Dose: 30 mg Duloxetine HCl (Cymbalta) 60 mg PO DAILY [facility] Last Admin: 02/13/18 09:21 Dose: 60 mg Enoxaparin Sodium (Lovenox) 40 mg SUBCUT BEDTIME [facility] Last Admin: 02/12/18 21:27 Dose: 40 mg Fluticasone Propionate (Flonase) 0 gm ALBERTINA BEDTIME [facility] Last Admin: 02/12/18 21:30 Dose: 2 spray Folic Acid (Folic Acid) 1 mg PO DAILY [facility] Last Admin: 02/13/18 09:22 Dose: 1 mg Furosemide (Lasix) 20 mg PO DAILY [facility] Last Admin: 02/13/18 09:21 Dose: 20 mg Gabapentin (Neurontin) 600 mg PO TID [facility] Last Admin: 02/13/18 09:20 Dose: 600 mg Guaifenesin/Dextromethorphan (Robitussin Dm) 10 ml PO Q4H PRN PRN Reason: Cough Ceftriaxone Sodium 2 gm/ (Sodium Chloride) 50 mls @ 100 mls/hr IV Q24H [facility] Last Admin: 02/12/18 12:18 Dose: 100 mls/hr Levofloxacin 500 mg/ (Levofloxacin 250 mg) 750 mg PO Q24H [facility] Last Admin: 02/12/18 19:54 Dose: 750 mg Lorazepam (Ativan) 1 mg IV Q6H PRN PRN Reason: Nausea/Vomiting Multivitamins/Minerals (Thera M Plus) 1 tab PO BID [facility] Last Admin: 02/13/18 09:22 Dose: 1 tab Naloxegol (Movantik) 25 mg PO ACBREAKFAST [facility] Last Admin: 02/13/18 07:33 Dose: 25 mg Nicotine (Habitrol) 14 mg TRDERM DAILY [facility] Last Admin: 02/13/18 09:27 Dose: 14 mg Ondansetron HCl (Zofran) 4 mg IV Q4H PRN PRN Reason: Nausea/Vomiting Oxycodone HCl (Oxycodone) 10 mg PO Q6HR PRN PRN Reason: Pain Last Admin: 02/13/18 09:18 Dose: 10 mg Pantoprazole Sodium (Protonix) 40 mg PO BEDTIME [facility] Last Admin: 02/12/18 21:33 Dose: 40 mg Polyethylene Glycol (Miralax) 85 gm PO DAILY [facility] Last Admin: 02/13/18 09:20 Dose: 85 gm Propranolol HCl (Inderal) 80 mg PO TID [facility] Last Admin: 02/13/18 09:19 Dose: 80 mg Rizatriptan Benzoate (Maxalt [employer]) 10 mg PO ASDIRECTED PRN PRN Reason: migraines Last Admin: 02/11/18 20:20 Dose: 10 mg Senna/Docusate Sodium (Senna Plus) 2 tab PO BEDTIME [facility] Last Admin: 02/12/18 21:33 Dose: 2 tab Tamsulosin HCl (Flomax) 0.4 mg PO BEDTIME [facility] Last Admin: 02/12/18 21:30 Dose: 0.4 mg Tramadol HCl (Ultram) 50 mg PO Q4H PRN PRN Reason: Pain Last Admin: 02/13/18 07:41 Dose: 50 mg Discontinued Medications Albuterol/Ipratropium (Duoneb 3.0-0.5 Mg/3 Ml) 3 ml NEB QID [facility] Buspirone HCl (Buspar) 15 mg PO TID [facility] Last Admin: 02/08/18 23:33 Dose: 15 mg Buspirone HCl (Buspar) 15 mg PO TID [facility] Last Admin: 02/11/18 08:56 Dose: 15 mg Duloxetine HCl (Cymbalta) 30 mg PO QPM [facility] Enoxaparin Sodium (Lovenox) 40 mg SUBCUT DAILY [facility] Last Admin: 02/08/18 20:23 Dose: 40 mg Fluticasone Propionate (Flonase) 0 gm ALBERTINA BEDTIME JUDY Fluticasone Propionate (Flonase) 0 gm ALBERTINA BEDTIME [facility] Last Admin: 02/08/18 23:33 Dose: 2 spr Furosemide (Lasix) 40 mg IVPUSH ONETIME ONE Stop: 02/08/18 19:38 Last Admin: 02/08/18 20:23 Dose: Not Given Furosemide (Lasix) 20 mg IVPUSH ONETIME ONE Stop: 02/08/18 19:39 Last Admin: 02/08/18 20:23 Dose: 20 mg Lactated Ringer's (Ringers, Lactated) 1,000 mls @ 1,000 mls/hr IV BOLUS ONE Stop: 02/08/18 18:34 Last Admin: 02/08/18 18:48 Dose: 1,000 mls/hr Levofloxacin/Dextrose 750 mg/ (Premix) 150 mls @ 100 mls/hr IV ONETIME ONE Stop: 02/08/18 19:26 Last Admin: 02/08/18 18:49 Dose: 100 mls/hr Lactated Ringer's (Ringers, Lactated) 1,000 mls @ 25 mls/hr IV ASDIRECTED [facility] Last Infusion: 02/09/18 11:28 Dose: 25 mls/hr Levofloxacin/Dextrose 750 mg/ (Premix) 150 mls @ 100 mls/hr IV Q24H [facility] Last Admin: 02/10/18 17:21 Dose: 100 mls/hr Levofloxacin (Levaquin) Confirm Administered Dose 1,000 mg .ROUTE .STK-MED ONE Stop: 02/11/18 20:16 Last Admin: 02/11/18 20:30 Dose: Not Given Multivitamins/Minerals (Thera M Plus) 1 tab PO BID [facility] Non-Formulary Medication (Alprazolam [Xanax]) 1 - 2 mg PO BEDTIME PRN PRN Reason: Anxiety Non-Formulary Medication (Amitriptyline Hcl [Amitriptyline Hcl]) 150 mg PO BEDTIME [facility] Last Admin: 02/08/18 23:05 Dose: Not Given Non-Formulary Medication (Calcium Citrate [Calcium Citrate]) 250 mg PO QPM [facility] Non-Formulary Medication (Duloxetine Hcl [Duloxetine Hcl]) 60 mg PO QAM [facility] Non-Formulary Medication (Multivitamin [Multivitamins]) 1 cap PO BID [facility] Last Admin: 02/08/18 23:05 Dose: Not Given Non-Formulary Medication (Propranolol [Inderal]) 80 mg PO TID [facility] Last Admin: 02/08/18 23:05 Dose: Not Given Non-Formulary Medication (Triamcinolone Acetonide [Nasacort Aq Cassel]) 2 sprays INH BEDTIME [facility] Last Admin: 02/08/18 23:05 Dose: Not Given Non-Formulary Medication (Calcium Citrate [Calcium Citrate]) 250 mg PO QPM [facility] Last Admin: 02/08/18 23:34 Dose: Not Given Pantoprazole Sodium (Protonix Iv) 40 mg IV DAILY [facility] Last Admin: 02/08/18 20:23 Dose: 40 mg Pantoprazole Sodium (Protonix Iv) 40 mg IV BEDTIME [facility] Pneumococcal Polyvalent Vaccine (Pneumovax 23) 0.5 ml IM .ONCE ONE Stop: 02/09/18 09:01 Last Admin: 02/09/18 09:28 Dose: 0.5 ml Polyethylene Glycol (Miralax) 85 gm PO DAILY [facility] Polyethylene Glycol (Miralax) 85 gm PO DAILY [facility] Last Admin: 02/08/18 23:32 Dose: 85 gm Polyethylene Glycol (Miralax) Confirm Administered Dose 51 gm .ROUTE .STK-MED ONE Stop: 02/08/18 22:53 Last Admin: 02/08/18 23:02 Dose: Not Given Polyethylene Glycol (Miralax) Confirm Administered Dose 34 gm .ROUTE .STK-MED ONE Stop: 02/08/18 22:55 Last Admin: 02/08/18 23:02 Dose: Not Given Propranolol HCl (Inderal) 80 mg PO TID [facility] Last Admin: 02/09/18 08:38 Dose: 80 mg Tamsulosin HCl (Flomax) 0.4 mg PO DAILY [facility] Tamsulosin HCl (Flomax) 0.4 mg PO DAILY [facility] Last Admin: 06/06/18 23:32 Dose: 0.4 mg - Exam Quality Assessment: Reports: DVT Prophylaxis. Denies: Supplemental Oxygen General: Reports: Alert, Oriented Lungs: Reports: Normal Respiratory Effort, Crackles Cardiovascular: Reports: Regular Rate, Regular Rhythm, No Murmurs GI/Abdominal Exam: Soft, Non-Tender, No Organomegaly, No Distention
[2018-02-13] MEDS: cefTRIAXone 2 GM in Sodium Chloride 0.9% 50 ML IV SCH (12:06)
== END 2018-02-13 13:25 | disposition home or self-care (01) | DRG 193 ==
LOC: JP.ED 16:05 → JP.2SS 19:37
PROVIDERS: ADMIT Internal Medicine; ATTEND Internal Medicine
DX: J18.9 Pneumonia, unspecified organism (principal); J96.01 Acute respiratory failure with hypoxia; F17.210 Nicotine dependence, cigarettes, uncomplicated; F43.10 Post-traumatic stress disorder, unspecified; I25.2 Old myocardial infarction; Z86.711 Personal history of pulmonary embolism; Z79.899 Other long term (current) drug therapy; Z98.84 Bariatric surgery status
CPT/HCPCS: 36415; 71046; 71046-26; 80048; 81001; 83605; 83880; 84484; 85025; 85027; 85379; 86140; 87040; 90732; 94640; 94762; 96365; 99285-25; A9270-GY; C9113; J0696; J1650; J1940; J1956; J7050; J7120; J7620

== ENCOUNTER 2018-03-23 17:57 | Emergency (ER) | payer MEDICAID ==
--- NOTE | 2018-03-23 19:03 | EDM.PDOC ---
ED HPI GENERAL MEDICAL PROBLEM - General Chief Complaint: Abdominal Pain Stated Complaint: CONSTIPATED Time Seen by Provider: 03/23/18 18:45 Source of Information: Reports: Patient, Family History Limitations: Reports: No Limitations - History of Present Illness INITIAL COMMENTS - FREE TEXT/NARRATIVE: 47-year-old male with numerous abdominal surgeries, increasing abdominal discomfort and distention over the past several days. He thinks it's been building for "2 weeks". Discussed his symptoms with surgery, increase his MiraLAX was recommended and he is already taking a lot of stool softeners and medications to avoid constipation. He had 2 very small bowel movements this morning. They were not normal. No fevers or chills. He is concerned he has developed another bowel obstruction. Onset: Gradual Duration: Week(s): (Symptoms have been brewing for 2 weeks, worse over the last couple of days) Location: Reports: Abdomen Severity: Moderate Associated Symptoms: Reports: Headaches, Malaise, Nausea/Vomiting (One episode of emesis yesterday). Denies: Chest Pain, Fever/Chills Abdomen Pain Score (Numeric/FACES): 8 - Related Data Allergies Allergy/AdvReac Type Severity Reaction Status Date / Time Iodinated Contrast- Oral and Allergy Unknown Itching Verified 03/23/18 18:11 IV Dye [Iodinated Contrast Media - IV Dye] iohexol [From Omnipaque 140] Allergy Unknown unknown Verified 03/23/18 18:11 morphine Allergy Unknown Itching Verified 03/23/18 18:11 adhesive tape Allergy Blisters Verified 03/23/18 18:11 oxycodone [From Percocet] Allergy Itching Verified 03/23/18 18:11 surgical lisa Allergy Blisters Uncoded 03/23/18 18:11 Home Meds: Home Meds Cholecalciferol (Vitamin D3) [Vitamin D3] 5,000 units PO DAILY 11/21/13 [History ] Diclofenac Sodium [Voltaren 1% Gel] 1 applic TP QID 11/21/13 [History] Multivitamin [Multivitamins] 1 cap PO BID 11/21/13 [History] Propranolol [Inderal] 80 mg PO TID 11/21/13 [History] Vitamin B Complex 1 each PO ACBREAKFAST 11/21/13 [History] Rizatriptan Benzoate [Rizatriptan] 10 mg SL ASDIRECTED PRN 01/16/15 [History] Triamcinolone Acetonide [Nasacort AQ [place]] 2 sprays INH BEDTIME 01/16/15 [ History] Gabapentin [Neurontin] 600 mg PO TID 07/02/16 [History] Calcium Citrate 250 mg PO QPM 10/09/16 [History] Cyanocobalamin (Vitamin B-12) [Cyanocobalamin Injection] 1,000 mcg IJ .[id number] 10/06/17 [History] DULoxetine HCl [Duloxetine HCl] 60 mg PO QAM 10/06/17 [History] Folic Acid 1 mg PO DAILY 10/06/17 [History] Zinc Gluconate [Zinc] 50 mg PO DAILY 10/06/17 [History] busPIRone [Buspar] 15 mg PO TID 10/06/17 [History] ALPRAZolam [Xanax] 1 - 2 mg PO BEDTIME PRN 12/28/17 [History] DULoxetine HCl [Cymbalta] 30 mg PO QPM 12/28/17 [History] Amitriptyline HCl 150 mg PO BEDTIME 02/01/18 [History] traMADol [Ultram] 50 mg PO Q4H PRN 02/01/18 [History] Acarbose [Precose] 75 mg PO TIDMEALS tablet 02/06/18 [Rx] Polyethylene Glycol 3350 [MiraLAX] 85 gm PO DAILY #100 packet 02/06/18 [Rx] Sennosides/Docusate Sodium [Senna Plus Tablet] 2 tab PO BEDTIME #60 tab [Rx] Furosemide [Lasix] 20 mg PO DAILY 02/08/18 [History] Tamsulosin [Flomax] 0.4 mg PO DAILY 02/08/18 [History] oxyCODONE 10 mg PO Q6HR PRN 02/08/18 [History] Past Medical History HEENT History: Reports: Allergic Rhinitis, Impaired Vision Other HEENT History: wears glasses, sensitive to light Cardiovascular History: Reports: Syncope Other Cardiovascular History: possible PE now Respiratory History: Reports: Intubation, Previous, Pneumonia, Recurrent Gastrointestinal History: Reports: Bowel Obstruction, Cholelithiasis, Chronic Constipation, GERD Genitourinary History: Reports: Renal Calculus Musculoskeletal History: Reports: Back Pain, Chronic, Fibromyalgia, Osteoarthritis Other Musculoskeletal History: arthritis Neurological History: Reports: Brain Injury, Concussion, Headaches, Chronic, Head Trauma, Migraines Other Neuro History: mid-line shift Psychiatric History: Reports: Antisocial Behaviors, Anxiety, Depression, Emotional Problems, PTSD, Other (See Below) Other Psychiatric History: tbi 4 years ago Endocrine/Metabolic History: Reports: Other (See Below) Other Endocrine/Metabolic History: hypoglycemia Hematologic History: Reports: Anemia, B12 Deficiency, Iron Deficiency Dermatologic History: Reports: Other (See Below) Other Dermatologic History: itching from contrast dye - Infectious Disease History Infectious Disease History: Reports: Chicken Pox - Past Surgical History HEENT Surgical History: Reports: LASIK GI Surgical History: Reports: Bariatric Procedure, Cholecystectomy, Colonoscopy , EGD, Hernia, Abdominal, Lysis of Adhesions, Small Bowel, Other (See Below) Other GI Surgeries/Procedures: revision of gastric bypass; panniculectomy; removal of gastric bypass scar tissue Social & Family History - Family History Family Medical History: Noncontributory Cardiac: Reports: [place] - Tobacco Use Smoking Status *Q: Current Some Day Smoker Years of Tobacco use: 25 Packs/Tins Daily: 0.2 - Caffeine Use Caffeine Use: Reports: Coffee Caffeine Use Comment: 2 cups/daily - Recreational Drug Use Recreational Drug Use: No - Living Situation & Occupation Living situation: Reports: Occupation: Disabled ED ROS GENERAL - Review of Systems Review Of Systems: See Below Constitutional: Reports: Malaise, Weakness, Decreased Appetite. Denies: Fever, Chills HEENT: Reports: Other (Wears prism glasses for chronic concussion symptoms) GI/Abdominal: Reports: Abdominal Pain, Distension, Nausea, Vomiting : Reports: No Symptoms Skin: Reports: No Symptoms Neurological: Reports: Dizziness, Headache Psychiatric: Reports: Anxiety ED EXAM, GI/ABD - Physical Exam Exam: See Below Exam Limited By: No Limitations General Appearance: Alert, No Apparent Distress (Looks uncomfortable but not distressed) Respiratory/Chest: No Respiratory Distress Cardiovascular: Regular Rate, Rhythm GI/Abdominal Exam: Normal Bowel Sounds (Bowel sounds are active, somewhat high- pitched), Tender (Diffuse) Neurological: Alert, Oriented Psychiatric: Flat Affect Skin Exam: Warm, Dry Course - Vital Signs Last Recorded V/S: Last Vital Signs Temp 97.8 F 03/23/18 18:17 Pulse 67 03/23/18 19:54 Resp 18 03/23/18 19:54 BP 120/81 03/23/18 19:54 Pulse Ox 97 03/23/18 19:54 - Orders/Labs/Meds Orders: Active Orders 24 hr Category Date Time Status Abdomen Pelvis wo Cont [CT] Stat Exams 03/23/18 18:54 Taken Labs: Laboratory Tests 03/23/18 03/23/18 03/23/18 Range/Units 18:53 18:53 18:53 WBC 8.0 (4.5-11.0) K/uL RBC 4.91 (4.30-5.90) M/uL Hgb 15.2 H D (12.0-15.0) g/dL Hct 44.7 (40.0-54.0) % MCV 91 (80-98) fL MCH 31 (27-31) pg MCHC 34 (32-36) % Plt Count 185 (150-400) K/uL Neut % (Auto) 58 (36-66) % Lymph % (Auto) 29 (24-44) % [place] % (Auto) 10 H (2-6) % Eos % (Auto) 3 (2-4) % Baso % (Auto) 0 (0-1) % Sodium 138 L (140-148) mmol/L Potassium 4.6 (3.6-5.2) mmol/L Chloride 103 (100-108) mmol/L Carbon Dioxide 32 (21-32) mmol/L Anion Gap 7.6 (5.0-14.0) mmol/L BUN 19 H D (7-18) mg/dL Creatinine 0.7 L (0.8-1.3) mg/dL Est Cr Clr Drug Dosing 146.27 mL/min Estimated GFR (MDRD) > 60 (>60) Glucose 93 (74-106) mg/dL Lactic Acid 1.3 (0.4-2.0) mmol/L Calcium 8.5 (8.5-10.1) mg/dL Total Bilirubin 0.4 (0.2-1.0) mg/dL AST 42 H (15-37) U/L ALT 79 H (12-78) U/L Alkaline Phosphatase 132 H (46-116) U/L Total Protein 6.9 (6.4-8.2) g/dL Albumin 3.6 (3.4-5.0) g/dL Globulin 3.3 (2.3-3.5) g/dL Albumin/Globulin Ratio 1.1 L (1.2-2.2) Lipase 217 (73-393) U/L Meds: Medications Discontinued Medications Generic Name Dose Route Start Last Admin Trade Name Priscilla PRN Reason Stop Dose Admin Alprazolam 0.5 mg 03/23/18 19:30 03/23/18 19:53 Xanax PO 03/23/18 19:31 0.5 mg ONETIME ONE Administration Alprazolam Confirm 03/23/18 19:51 03/23/18 19:54 Xanax Administered 03/23/18 19:52 Not Given Dose 0.25 mg .ROUTE .STK-MED ONE - Re-Assessments/Exams Free Text/Narrative Re-Assessment/Exam: 03/23/18 19:03 CBC, CMP, lactic acid and lipase were obtained. Patient will be scanned without contrast of the abdomen and pelvis. 03/23/18 19:58 Labs were reassuring, lactic acid was negative. CT scan done showed a large amount of colonic air with likely rectal impaction causing constipation. He had a few small loops of small bowel that were dilated. These findings were discussed with Dr. Ayon, patient was reassured that there was no acute bowel obstruction and his problems can be relieved by enemas possibly. Digitally decompaction was offered but he declined. He did need 0.5 mg of Xanax orally after his CAT scan for anxiety. Patient will try enemas at home over the next 48 hours and continue his oral medications, and recheck if not improving. Departure - Departure Time of Disposition: 20:06 Disposition: Home, Self-Care 01 Condition: Fair Clinical Impression: Constipation by delayed colonic transit Abdominal pain Qualifiers: Abdominal location: generalized Qualified Code(s): R10.84 - Generalized abdominal pain - Discharge Information Instructions: Constipation, Adult Referrals: Connor Lopez MD [Primary Care Provider] - Forms: ED Department Discharge Care Plan Goals: Continue current medications including constipation medications. Consider enemas to relieve the rectal impaction. Update Dr. Ayon with your progress in the next 24-48 hours, especially if not improving. - My Orders Last 24 Hours: My Active Orders 03/23/18 18:54 Abdomen Pelvis wo Cont [CT] Stat - Assessment/Plan Last 24 Hours: My Active Orders 03/23/18 18:54 Abdomen Pelvis wo Cont [CT] Stat
[2018-03-23] MEDS ORDERED: ALPRAZolam 0.25 MG Tab PO ONE (19:30)
[2018-03-23] MEDS ORDERED: ALPRAZolam 0.25 MG Tab ONE (19:51)
[2018-03-23 19:55] VITALS: BP 120/81
== END 2018-03-23 20:06 | disposition home or self-care (01) ==
LOC: JP.ED 17:57
DX: K59.01 Slow transit constipation (principal); F17.210 Nicotine dependence, cigarettes, uncomplicated; F41.9 Anxiety disorder, unspecified; F32.9 Major depressive disorder, single episode, unspecified; K21.9 Gastro-esophageal reflux disease without esophagitis; Z79.899 Other long term (current) drug therapy; Z88.5 Allergy status to narcotic agent; Z91.041 Radiographic dye allergy status; Z91.09 Other allergy status, other than to drugs and biological substances
CPT/HCPCS: 36415; 74176; 80053; 83605; 83690; 85025; 99284; A9270

== ENCOUNTER 2018-10-06 11:54 | Inpatient (IN) | payer MEDICARE ==
--- NOTE | 2018-10-06 15:33 | EDM.PDOCBH ---
ED HPI GENERAL MEDICAL PROBLEM - General Chief Complaint: Behavioral/Psych Stated Complaint: EVAL FROM CLINIC Time Seen by Provider: 10/06/18 13:43 Source of Information: Reports: Patient History Limitations: Reports: No Limitations - History of Present Illness INITIAL COMMENTS - FREE TEXT/NARRATIVE: This patient comes to the ER for a psych evaluation. 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 He told Shelby that if somebody didn't do something about his abdominal pain he was going to kill himself. So she sent him to the ER for a psych eval. The patient says that he had a Giovany-en-Y about 15 years ago and that a few years ago there was a revision of it. He's had problems with chronic pain since then and most recently with a lot of constipation and he's been taking various laxatives stool softeners etc. and at times passed a lot of stool liquid stool diarrhea lots of gas and so forth but says the pain just continues. He's been taking some extra oxycodone and so he is currently running out tonight and doesn 't have any more refills on this. He said a couple of times and eventually he would do away with himself if he has to continue living like this. He did not however show any signs of mental illness. He just wanted somebody to help him with his pain Left Upper Abdominal Pain Score (Numeric/FACES): 8 - Related Data Allergies Allergy/AdvReac Type Severity Reaction Status Date / Time Iodinated Contrast- Oral and Allergy Unknown Itching Verified 03/23/18 18:11 IV Dye [Iodinated Contrast Media - IV Dye] iohexol [From Omnipaque 140] Allergy Unknown unknown Verified 03/23/18 18:11 morphine Allergy Unknown Itching Verified 03/23/18 18:11 adhesive tape Allergy Blisters Verified 03/23/18 18:11 oxycodone [From Percocet] Allergy Itching Verified 03/23/18 18:11 surgical lisa Allergy Blisters Uncoded 03/23/18 18:11 Home Meds: Home Meds Cholecalciferol (Vitamin D3) [Vitamin D3] 5,000 units PO DAILY 11/21/13 [History ] Diclofenac Sodium [Voltaren 1% Gel] 1 applic TP QID 11/21/13 [History] Multivitamin [Multivitamins] 1 cap PO BID 11/21/13 [History] Propranolol [Inderal] 40 - 80 mg PO TID 11/21/13 [History] Vitamin B Complex 1 each PO ACBREAKFAST 11/21/13 [History] Rizatriptan Benzoate [Rizatriptan] 10 mg SL ASDIRECTED PRN 01/16/15 [History] Triamcinolone Acetonide [Nasacort AQ [place]] 2 sprays INH BEDTIME 01/16/15 [ History] Calcium Citrate 250 mg PO QPM 10/09/16 [History] Cyanocobalamin (Vitamin B-12) [Cyanocobalamin Injection] 1,000 mcg IJ .[id number] 10/06/17 [History] DULoxetine HCl [Duloxetine HCl] 90 mg PO QAM 10/06/17 [History] Folic Acid 1 mg PO DAILY 10/06/17 [History] Zinc Gluconate [Zinc] 50 mg PO DAILY 10/06/17 [History] Amitriptyline HCl 150 mg PO BEDTIME 02/01/18 [History] Acarbose [Precose] 75 mg PO TIDMEALS tablet 02/06/18 [Rx] Polyethylene Glycol 3350 [MiraLAX] 85 gm PO DAILY #100 packet 02/06/18 [Rx] Sennosides/Docusate Sodium [Senna Plus Tablet] 2 tab PO BEDTIME #60 tab [Rx] Furosemide [Lasix] 20 mg PO DAILY 02/08/18 [History] Tamsulosin [Flomax] 0.4 mg PO DAILY 02/08/18 [History] oxyCODONE 5 mg PO Q4HR PRN 02/08/18 [History] Ascorbic Acid [C-1000 with Sintia Hips] 1,000 mg PO DAILY 10/06/18 [History] Gabapentin [Neurontin] 600 mg PO TID 10/06/18 [History] Naloxegol Oxalate [Movantik] 25 mg PO DAILY 10/06/18 [History] Nicotine [Habitrol] 14 mg TOP DAILY 10/06/18 [History] clonazePAM [Klonopin] 0.5 mg PO BEDTIME 10/06/18 [History] hydrOXYzine HCl [hydrOXYzine] 10 - 20 mg PO Q6H PRN 10/06/18 [History] lamoTRIgine [Lamotrigine] 100 mg PO DAILY 10/06/18 [History] Past Medical History HEENT History: Reports: Allergic Rhinitis, Impaired Vision Other HEENT History: wears glasses, sensitive to light Cardiovascular History: Reports: Syncope Other Cardiovascular History: possible PE now Respiratory History: Reports: Intubation, Previous, Pneumonia, Recurrent Gastrointestinal History: Reports: Bowel Obstruction, Cholelithiasis, Chronic Constipation, GERD Genitourinary History: Reports: Renal Calculus Musculoskeletal History: Reports: Back Pain, Chronic, Fibromyalgia, Osteoarthritis Other Musculoskeletal History: arthritis Neurological History: Reports: Brain Injury, Concussion, Headaches, Chronic, Head Trauma, Migraines Other Neuro History: mid-line shift Psychiatric History: Reports: Antisocial Behaviors, Anxiety, Depression, Emotional Problems, PTSD, Other (See Below) Other Psychiatric History: tbi 4 years ago Endocrine/Metabolic History: Reports: Other (See Below) Other Endocrine/Metabolic History: hypoglycemia Hematologic History: Reports: Anemia, B12 Deficiency, Iron Deficiency Dermatologic History: Reports: Other (See Below) Other Dermatologic History: itching from contrast dye - Infectious Disease History Infectious Disease History: Reports: Chicken Pox - Past Surgical History HEENT Surgical History: Reports: LASIK GI Surgical History: Reports: Bariatric Procedure, Cholecystectomy, Colonoscopy , EGD, Hernia, Abdominal, Lysis of Adhesions, Small Bowel, Other (See Below) Other GI Surgeries/Procedures: revision of gastric bypass; panniculectomy; removal of gastric bypass scar tissue Social & Family History - Family History Family Medical History: Noncontributory Cardiac: Reports: [place] - Tobacco Use Smoking Status *Q: Heavy Tobacco Smoker Years of Tobacco use: 27 Packs/Tins Daily: 0.2 - Caffeine Use Caffeine Use: Reports: Coffee Caffeine Use Comment: 2 cups/daily - Recreational Drug Use Recreational Drug Use: No - Living Situation & Occupation Living situation: Reports: Occupation: Disabled ED ROS GENERAL - Review of Systems Review Of Systems: See Below Constitutional: Reports: No Symptoms HEENT: Reports: No Symptoms Respiratory: Reports: No Symptoms Cardiovascular: Reports: No Symptoms Endocrine: Reports: No Symptoms GI/Abdominal: Reports: Abdominal Pain : Reports: No Symptoms ED EXAM, BEHAVIORAL HEALTH - Physical Exam Exam: See Below Exam Limited By: No Limitations General Appearance: Alert, WD/WN, Mild Distress Eye Exam: Bilateral Eye: Normal Inspection Throat/Mouth: Normal Inspection Head: Atraumatic Neck: Normal Inspection Respiratory/Chest: Lungs Clear Cardiovascular: Regular Rate, Rhythm GI/Abdominal: Normal Bowel Sounds, Soft, Non-Tender Back Exam: Normal Inspection Extremities: Normal Inspection Neurological: Alert, Normal Mood/Affect, CN II-XII Intact, Normal Cognition, No Motor/Sensory Deficits Psychiatric: Alert, Normal Affect, Normal Cognition, Other (He did make some suicidal threats with this all seems to be just related to his abdominal pain. I don't think this qualifies as true suicidal ideation.) Skin Exam: Warm, Dry, Intact COURSE, BEHAVIORAL HEALTH COMP - Course Vital Signs: Last Vital Signs Temp 35.2 C L 10/06/18 12:42 Pulse 65 10/06/18 12:42 Resp 16 10/06/18 12:42 BP 148/74 H 10/06/18 12:42 Pulse Ox 97 10/06/18 12:42 Orders, Labs, Meds: Active Orders 24 hr Category Date Time Status UA W/MICROSCOPIC [URIN] Urgent Lab 10/06/18 14:17 Ordered Laboratory Tests 10/06/18 10/06/18 Range/Units 14:17 14:17 WBC 6.3 (4.5-11.0) K/uL RBC 4.47 (4.30-5.90) M/uL Hgb 14.6 (12.0-15.0) g/dL Hct 42.2 (40.0-54.0) % MCV 94 (80-98) fL MCH 33 H (27-31) pg MCHC 35 (32-36) % Plt Count 156 (150-400) K/uL Neut % (Auto) 62 (36-66) % Lymph % (Auto) 29 (24-44) % [place] % (Auto) 7 H (2-6) % Eos % (Auto) 2 (2-4) % Baso % (Auto) 1 (0-1) % Sodium 141 (140-148) mmol/L Potassium 3.8 (3.6-5.2) mmol/L Chloride 103 (100-108) mmol/L Carbon Dioxide 30 (21-32) mmol/L Anion Gap 8.1 (5.0-14.0) mmol/L BUN 12 (7-18) mg/dL Creatinine 0.9 (0.8-1.3) mg/dL Est Cr Clr Drug Dosing 109.23 mL/min Estimated GFR (MDRD) > 60 (>60) Glucose 89 (74-106) mg/dL Calcium 9.1 (8.5-10.1) mg/dL Total Bilirubin 0.6 (0.2-1.0) mg/dL AST 33 (15-37) U/L ALT 60 (12-78) U/L Alkaline Phosphatase 102 (46-116) U/L Total Protein 6.3 L (6.4-8.2) g/dL Albumin 3.5 (3.4-5.0) g/dL Globulin 2.8 (2.3-3.5) g/dL Albumin/Globulin Ratio 1.2 (1.2-2.2) Re-Assessment/Re-Exam: The social work administrator initially saw this patient prior to me visiting with him. She felt like maybe you needed the the crisis evaluation however I talked with the patient I think he just needs help with the abdominal pain so I spoke initially with Shelby Rodriguez and she was mostly concerned with his suicidal threats I then talked with Dr. Ayon and felt like he should be admitted to the hospital and asked me to get the hospitalist to see him. I talked with Dr. Watters and he felt like the hospitalist service really didn't have anything to offer that he should to instead go to the surgery service spoke with Dr. Ayon again and Dr. Ayon did go ahead and gave admission orders Departure - Departure Time of Disposition: 15:33 Disposition: Admitted As Inpatient 68 Condition: Undetermined Clinical Impression: Chronic generalized abdominal pain - Discharge Information Referrals: Connor Lopez MD [Primary Care Provider] - - My Orders Last 24 Hours: My Active Orders 10/06/18 14:17 UA W/MICROSCOPIC [URIN] Urgent - Assessment/Plan Last 24 Hours: My Active Orders 10/06/18 14:17 UA W/MICROSCOPIC [URIN] Urgent
[2018-10-06] MEDS ORDERED: Rizatriptan 10 MG Tab.DIS PO PRN (16:10)
[2018-10-06] MEDS ORDERED: hydrOXYzine HCl 10 MG Tab PO PRN (16:14)
[2018-10-06] MEDS: oxyCODONE 5 MG Tab PO PRN ×2 (16:44→21:15)
[2018-10-06] MEDS: Dextrose 5%-Lactated Ringers 1,000 ML IV SCH (16:56)
[2018-10-06] MEDS: Propranolol 40 MG Tab PO SCH ×2 (17:09→20:15)
[2018-10-06] MEDS: Gabapentin 300 MG Cap PO SCH ×2 (17:10→20:14)
[2018-10-06] MEDS: Calcium Carbonate 500 MG Tab.Chew PO SCH (17:12)
[2018-10-06] MEDS: Nicotine 14 MG/24 Hr Patch TRDERM PRN (17:15)
[2018-10-06] MEDS: Multivitamins with Iron Tab.Chew PO SCH (20:13)
[2018-10-06] MEDS: Fluticasone Propionate Nasal Spray 16 GM Bottle NASBOTH SCH (20:16)
[2018-10-06] MEDS: ClonazePAM 0.5 MG Tab PO SCH (20:20)
[2018-10-06] MEDS: Diclofenac Sodium 1% Gel 100 GM Tube TOP SCH (21:16)
[2018-10-07] MEDS: oxyCODONE 5 MG Tab PO PRN ×6 (01:33→21:58)
[2018-10-07] MEDS ORDERED: Iohexol 647 MG/ML 10 ML SDV PO SCH (03:00)
[2018-10-07] MEDS ORDERED: hydrOXYzine HCl 100 MG/2 ML SDV IM ONE (03:00)
[2018-10-07] MEDS ORDERED: Iohexol 300 MG/ML 30 ML Bottle ONE (03:08)
[2018-10-07] MEDS: Dextrose 5%-Lactated Ringers 1,000 ML IV SCH ×3 (03:21→22:27)
[2018-10-07] MEDS ORDERED: methylPREDNISolone Sodium Succinate 125 MG/2 ML SDV IVPUSH ONE (03:30)
[2018-10-07] MEDS ORDERED: LORazepam 2 MG/ML SDV IVPUSH ONE (03:30)
[2018-10-07] MEDS ORDERED: Sodium Chloride 0.9% 10 ML Syringe FLUSH PRN (04:01)
[2018-10-07] MEDS ORDERED: Iopamidol 612 MG/ML 150 ML Bottle IV SCH (04:15)
[2018-10-07] MEDS: Diclofenac Sodium 1% Gel 100 GM Tube TOP SCH ×4 (05:39→21:57)
[2018-10-07] MEDS: Cholecalciferol (Vitamin D3) 1,000 Unit Tab PO SCH (08:16)
[2018-10-07] MEDS: Propranolol 40 MG Tab PO SCH ×3 (08:17→21:57)
[2018-10-07] MEDS: Vitamin B Complex Tab PO SCH (08:17)
[2018-10-07] MEDS: lamoTRIgine 100 MG Tab PO SCH (08:17)
[2018-10-07] MEDS: DULoxetine 30 MG Cap PO SCH ×2 (08:17→16:19)
[2018-10-07] MEDS: Tamsulosin 0.4 MG Cap.ER PO SCH (08:17)
[2018-10-07] MEDS: Folic Acid 1 MG Tab PO SCH (08:17)
[2018-10-07] MEDS: Ascorbic Acid 500 MG Tab PO SCH (08:17)
[2018-10-07] MEDS: Furosemide 20 MG Tab PO SCH (08:17)
[2018-10-07] MEDS: Multivitamins with Iron Tab.Chew PO SCH ×2 (08:17→21:56)
[2018-10-07] MEDS: Gabapentin 300 MG Cap PO SCH ×3 (08:19→21:57)
[2018-10-07] MEDS: Naloxegol Oxalate 25 MG Tab PO SCH (08:19)
[2018-10-07] MEDS ORDERED: DULoxetine 30 MG Cap PO SCH (09:00)
[2018-10-07] MEDS: Cyclobenzaprine 10 MG Tab PO SCH ×3 (09:46→21:57)
[2018-10-07] MEDS: Calcium Carbonate 500 MG Tab.Chew PO SCH (16:20)
[2018-10-07] MEDS: Fluticasone Propionate Nasal Spray 16 GM Bottle NASBOTH SCH (21:57)
[2018-10-07] MEDS: ClonazePAM 0.5 MG Tab PO SCH (22:03)
[2018-10-07] MEDS: Nicotine 14 MG/24 Hr Patch TRDERM PRN (22:24)
[2018-10-08] MEDS: oxyCODONE 5 MG Tab PO PRN ×6 (02:54→23:43)
[2018-10-08] MEDS: Cyclobenzaprine 10 MG Tab PO SCH ×4 (03:03→21:40)
[2018-10-08] MEDS: Diclofenac Sodium 1% Gel 100 GM Tube TOP SCH ×4 (06:48→21:40)
[2018-10-08] MEDS: Dextrose 5%-Lactated Ringers 1,000 ML IV SCH ×2 (08:24→18:20)
[2018-10-08] MEDS ORDERED: Bisacodyl 5 MG Tab PO ONE ×2 (09:00→20:00)
[2018-10-08] MEDS: DULoxetine 30 MG Cap PO SCH ×2 (09:34→17:10)
[2018-10-08] MEDS: Multivitamins with Iron Tab.Chew PO SCH ×2 (09:34→21:39)
[2018-10-08] MEDS: Tamsulosin 0.4 MG Cap.ER PO SCH (09:35)
[2018-10-08] MEDS: Folic Acid 1 MG Tab PO SCH (09:36)
[2018-10-08] MEDS: Propranolol 40 MG Tab PO SCH ×3 (09:36→21:39)
[2018-10-08] MEDS: Furosemide 20 MG Tab PO SCH (09:37)
[2018-10-08] MEDS: lamoTRIgine 100 MG Tab PO SCH (09:37)
[2018-10-08] MEDS: Gabapentin 300 MG Cap PO SCH ×3 (09:38→21:40)
[2018-10-08] MEDS: Naloxegol Oxalate 25 MG Tab PO SCH (09:38)
[2018-10-08] MEDS: Ascorbic Acid 500 MG Tab PO SCH (09:39)
[2018-10-08] MEDS: Vitamin B Complex Tab PO SCH (09:39)
[2018-10-08] MEDS: Cholecalciferol (Vitamin D3) 1,000 Unit Tab PO SCH (09:40)
[2018-10-08] MEDS: Polyethylene Glycol 3350 Powder 119 GM Bottle PO SCH ×3 (14:09→19:27)
[2018-10-08] MEDS: Calcium Carbonate 500 MG Tab.Chew PO SCH (17:09)
[2018-10-08] MEDS: Nicotine 14 MG/24 Hr Patch TRDERM PRN (17:17)
[2018-10-08] MEDS: Fluticasone Propionate Nasal Spray 16 GM Bottle NASBOTH SCH (21:39)
[2018-10-08] MEDS: ClonazePAM 0.5 MG Tab PO SCH (21:40)
[2018-10-09] MEDS: oxyCODONE 5 MG Tab PO PRN ×3 (03:42→11:45)
[2018-10-09] MEDS: Cyclobenzaprine 10 MG Tab PO SCH ×2 (03:42→10:09)
[2018-10-09] MEDS: Dextrose 5%-Lactated Ringers 1,000 ML IV SCH ×2 (04:23→10:50)
[2018-10-09] MEDS: Diclofenac Sodium 1% Gel 100 GM Tube TOP SCH ×2 (05:16→10:10)
[2018-10-09] MEDS ORDERED: Midazolam 1 MG/ML 2 ML SDV ONE (07:51)
[2018-10-09] MEDS ORDERED: Propofol 200 MG/20 ML SDV ONE (07:51)
[2018-10-09] MEDS ORDERED: fentaNYL 100 MCG/2 ML SDV ONE (07:51)
--- NOTE | 2018-10-09 08:05 | PN ---
DATE OF SERVICE: 10/09/2018 SUBJECTIVE: Dave is n.p.o., and has had the colonoscopy prep. He will be having a colonoscopy this morning. Case is to follow. REVIEW OF SYSTEMS: HEENT: Negative. NECK: Negative. HEART: Negative for any chest pain or shortness of breath. LUNGS: Negative. ABDOMEN: He has had frequent bowel movements following colon prep x3. EXTREMITIES: Negative. SKIN: Without rash. NEUROLOGICAL: Intact. PSYCHIATRIC: Mood and affect are flat. Remainder of review of systems was negative for any pertinent positives or negatives. OBJECTIVE: GENERAL: Dave is a 48-year-old male. VITAL SIGNS: Temperature is 96, pulse is 54, respirations are 18, and blood pressure is 126/77. HEENT: Exam based on 10/06/2018, negative. NECK: Supple. HEART: Regular rate and rhythm. LUNGS: Clear. ABDOMEN: Not examined today. The patient is in bathroom. EXTREMITIES: Negative. ASSESSMENT: Chronic constipation thought to be secondary to chronic opioid use. PLAN: Orders are to be written after colonoscopy. Internal Medicine consult with Umesh Moy MD, in regard to chronic constipation and continued opioid use. Shelby Rodriguez PA-C /[id number]
--- NOTE | 2018-10-09 09:29 | PN ---
DATE OF SERVICE: 10/07/2018 The patient has been afebrile with stable vital signs. Mood appears to be somewhat better today. Examination of the abdomen does not really show much in the way of tenderness. CT scan was obtained once again, which reported some mild thickening of the ascending colon. I think this is probably related to underdistention. As per the report, he does not have any discomfort on that side. He reports that he has intermittent discomfort, especially the area around the midline incision and to the left of that. I am not sure whether this is GI tract in origin versus some muscle spasm. I do not see any signs of recurrent hernia formation at this point. Review of the operative reports shows he does not currently have any mesh in place. He was seen by the [facility], who has recommended that he be medically stabilized and then continue with community support. I did not feel that he was specifically suicidal at this point. I think today we will add some Flexeril on a scheduled basis to see if that helps with regard to the spasms and then recheck some labs in the morning, including ferritin, as he has had low iron levels in the past. We asked Dr. Moody Watters, the internal medicine/hospitalist, to see the patient who refused to see the patient, and we will have Dr. Moy look at things on Tuesday. This maybe the case where we need to work in terms of taking him off the narcotics in terms of the GI tract, and we will ask for some assistance in that regard. Donaldo Ayon MD Job #: [id number]
[2018-10-09] MEDS: Gabapentin 300 MG Cap PO SCH (10:06)
[2018-10-09] MEDS: Naloxegol Oxalate 25 MG Tab PO SCH (10:07)
[2018-10-09] MEDS: Cholecalciferol (Vitamin D3) 1,000 Unit Tab PO SCH (10:07)
[2018-10-09] MEDS: Propranolol 40 MG Tab PO SCH (10:07)
[2018-10-09] MEDS: Multivitamins with Iron Tab.Chew PO SCH (10:07)
[2018-10-09] MEDS: Furosemide 20 MG Tab PO SCH (10:08)
[2018-10-09] MEDS: DULoxetine 30 MG Cap PO SCH (10:08)
[2018-10-09] MEDS: Vitamin B Complex Tab PO SCH (10:08)
[2018-10-09] MEDS: Folic Acid 1 MG Tab PO SCH (10:08)
[2018-10-09] MEDS: Tamsulosin 0.4 MG Cap.ER PO SCH (10:09)
[2018-10-09] MEDS: lamoTRIgine 100 MG Tab PO SCH (10:10)
[2018-10-09] MEDS: Ascorbic Acid 500 MG Tab PO SCH (10:10)
[2018-10-09 10:50] VITALS: BP 138/83
[2018-10-09] MEDS ORDERED: Sodium Ferric Gluconate Cmplex 250 MG in Sodium Chloride 0.9% 100 ML IV SCH (12:00)
--- NOTE | 2018-10-09 13:53 | PN ---
DATE OF SERVICE: 10/08/2018 The patient has been afebrile with stable vital signs. Still complaining of some pain. The pain appears to be predominantly related to the colonic distention. There was some fullness in the left upper quadrant; otherwise, this is unremarkable. Abdominal x-ray showed a large amount of air and stool within the colon. We will plan to proceed with a colonoscopy tomorrow to make sure there is no partial obstruction at his previous sigmoid resection site. Otherwise, consult Dr. Moy on Tuesday. The patient was to see Dr. Watters at the time of admission, but he refused to see the patient. So, we will have Dr. Moy see the patient this Tuesday morning for evaluation of abdominal pain and narcotic dependence. Donaldo Ayon MD Job #: [id number]
--- NOTE | 2018-10-16 13:34 | OR ---
DATE OF PROCEDURE: 10/08/2018 PREOPERATIVE DIAGNOSIS: Recent severe constipation associated with CT scan suggestive of possible right-sided colitis. POSTOPERATIVE DIAGNOSES: 1. No evidence of colitis. 2. Tiny polyp in cecum. OPERATIVE PROCEDURE: Flexible colonoscopy with polypectomy by snare technique. ANESTHESIA: IV sedation. INDICATION FOR PROCEDURE: The patient was admitted with severe constipation and abdominal pain. As part of the workup, the patient had a CT scan that was suggestive of possible right-sided colitis. Plan is to proceed with a flexible colonoscopy with biopsies and/or polypectomy as indicated. Potential risks including bleeding and perforation were discussed and the patient wishes to proceed. DETAILS OF PROCEDURE: The patient was taken to the operating room and placed in a left lateral decubitus position. IV sedation was administered after which the initial digital rectal exam was performed and was unremarkable. The colonoscope was then passed to the level of the cecum. The prep was fairly good. At this point, there was some liquid stool present, but the vast majority of the stool surface could be visualized. There did not appear to be any signs of redness or edema within the colonic mucosa nor anything abnormal in the rectum per se apart from the tiny polyp located in the cecum. This was encircled with the snare and cauterized much of the tissue obliterated. A small amount of tissue was obtained and retrieved through the colonoscope and good hemostasis was noted at the point of the polypectomy. At that point, the scope was withdrawn and no additional abnormalities were identified, and the patient was taken to the recovery room in satisfactory condition. There were no evident complications. Donaldo Ayon MD /[id number]
== END 2018-10-09 12:59 | disposition home or self-care (01) | DRG 392 ==
LOC: JP.ED 11:54 → JP.MS 15:35
PROVIDERS: ADMIT Surgery; ATTEND Surgery
PROC: 0DBH8ZX Excision of Cecum, Via Natural or Artificial Opening Endoscopic, Diagnostic (ICD-10-PCS; principal; 2018-10-08)
DX: K59.03 Drug induced constipation (principal); F11.20 Opioid dependence, uncomplicated; R10.84 Generalized abdominal pain; T40.2X5A Adverse effect of other opioids, initial encounter; D12.0 Benign neoplasm of cecum; G89.29 Other chronic pain; F17.210 Nicotine dependence, cigarettes, uncomplicated; R79.0 Abnormal level of blood mineral; Z98.84 Bariatric surgery status; Z98.0 Intestinal bypass and anastomosis status; Z87.820 Personal history of traumatic brain injury; E53.8 Deficiency of other specified B group vitamins; F41.9 Anxiety disorder, unspecified; F32.9 Major depressive disorder, single episode, unspecified; F43.10 Post-traumatic stress disorder, unspecified; G43.909 Migraine, unspecified, not intractable, without status migrainosus; M19.90 Unspecified osteoarthritis, unspecified site; M79.7 Fibromyalgia; M54.9 Dorsalgia, unspecified; T40.605A Adverse effect of unspecified narcotics, initial encounter; Y92.9 Unspecified place or not applicable; Z87.01 Personal history of pneumonia (recurrent); H54.7 Unspecified visual loss; Z91.041 Radiographic dye allergy status; Z88.5 Allergy status to narcotic agent; Z91.048 Other nonmedicinal substance allergy status
CPT/HCPCS: 36415; 74019; 74177; 80053; 81001; 82607; 82728; 82746; 83735; 84100; 84425; 85025; 85027; 87046; 87899; 99284; 99285; A9270-GY; J2060; J2250; J2704; J2930; J3010; J3410; J7030; J7042; Q9965

== ENCOUNTER 2019-01-17 20:21 | Inpatient (IN) | payer MEDICARE ==
[2019-01-17] MEDS ORDERED: Ketorolac 30 MG/ML SDV IVPUSH ONE (22:36)
--- NOTE | 2019-01-17 22:40 | EDM.PDOC ---
ED HPI GENERAL MEDICAL PROBLEM - General Chief Complaint: Gastrointestinal Problem Stated Complaint: ABD BLOCKAGE Time Seen by Provider: 01/17/19 22:38 Source of Information: Reports: Patient History Limitations: Reports: No Limitations - History of Present Illness INITIAL COMMENTS - FREE TEXT/NARRATIVE: pt is not stooling. His last bm was on . He is not vomiting but he is very nauseated. Pt feels very full. He is rating his pain at a 8. He has not used narcotics for about 1 month. Onset: Gradual Duration: Day(s): Location: Reports: Abdomen Associated Symptoms: Reports: Loss of Appetite, Nausea/Vomiting - Related Data Allergies Allergy/AdvReac Type Severity Reaction Status Date / Time Iodinated Contrast- Oral and Allergy Unknown Itching Verified 11/15/18 13:31 IV Dye [Iodinated Contrast Media - IV Dye] iohexol [From Omnipaque 140] Allergy Unknown unknown Verified 11/15/18 13:31 morphine Allergy Unknown Itching Verified 11/15/18 13:31 adhesive tape Allergy Blisters Verified 11/15/18 13:31 oxycodone [From Percocet] Allergy Itching Verified 11/15/18 13:31 surgical lisa Allergy Blisters Uncoded 11/15/18 13:31 Home Meds: Home Meds Cholecalciferol (Vitamin D3) [Vitamin D3] 5,000 units PO DAILY 11/21/13 [History ] Diclofenac Sodium [Voltaren 1% Gel] 1 applic TP QID 11/21/13 [History] Multivitamin [Multivitamins] 1 cap PO BID 11/21/13 [History] Propranolol [Inderal] 40 - 80 mg PO TID 11/21/13 [History] Vitamin B Complex 1 each PO ACBREAKFAST 11/21/13 [History] Rizatriptan Benzoate [Rizatriptan] 10 mg SL ASDIRECTED PRN 01/16/15 [History] Calcium Citrate 250 mg PO QPM 10/09/16 [History] Cyanocobalamin (Vitamin B-12) [Cyanocobalamin Injection] 1,000 mcg IJ .[id number] 10/06/17 [History] DULoxetine HCl [Duloxetine HCl] 90 mg PO QAM 10/06/17 [History] Folic Acid 1 mg PO DAILY 10/06/17 [History] Zinc Gluconate [Zinc] 50 mg PO DAILY 10/06/17 [History] Amitriptyline HCl 150 mg PO BEDTIME 02/01/18 [History] Acarbose [Precose] 75 mg PO TIDMEALS tablet 02/06/18 [Rx] Polyethylene Glycol 3350 [MiraLAX] 85 gm PO DAILY #100 packet 02/06/18 [Rx] Furosemide [Lasix] 20 mg PO DAILY 02/08/18 [History] Tamsulosin [Flomax] 0.4 mg PO DAILY 02/08/18 [History] Ascorbic Acid [C-1000 with Sintia Hips] 1,000 mg PO DAILY 10/06/18 [History] Gabapentin [Neurontin] 600 mg PO TID 10/06/18 [History] Naloxegol Oxalate [Movantik] 25 mg PO DAILY 10/06/18 [History] Fluticasone Propionate [Flonase] 2 spray NASBOTH BEDTIME 11/15/18 [History] Sennosides/Docusate Sodium [Senna Plus Tablet] 3 tab PO BEDTIME 11/15/18 [ History] Norethindrone [Stephanie] 3 ml PO BID 01/17/19 [History] [place] Oil 9 ml MC BEDTIME 01/17/19 [History] Past Medical History HEENT History: Reports: Allergic Rhinitis, Impaired Vision Other HEENT History: wears glasses, sensitive to light Cardiovascular History: Reports: Syncope Other Cardiovascular History: possible PE now Respiratory History: Reports: Intubation, Previous, Pneumonia, Recurrent Gastrointestinal History: Reports: Bowel Obstruction, Cholelithiasis, Chronic Constipation, GERD Genitourinary History: Reports: Renal Calculus Musculoskeletal History: Reports: Back Pain, Chronic, Fibromyalgia, Osteoarthritis Other Musculoskeletal History: arthritis Neurological History: Reports: Brain Injury, Concussion, Headaches, Chronic, Head Trauma, Migraines Other Neuro History: mid-line shift Psychiatric History: Reports: Antisocial Behaviors, Anxiety, Depression, Emotional Problems, PTSD, Other (See Below) Other Psychiatric History: tbi 4 years ago Endocrine/Metabolic History: Reports: Other (See Below) Other Endocrine/Metabolic History: hypoglycemia Hematologic History: Reports: Anemia, B12 Deficiency, Iron Deficiency Dermatologic History: Reports: Other (See Below) Other Dermatologic History: itching from contrast dye - Infectious Disease History Infectious Disease History: Reports: Chicken Pox - Past Surgical History HEENT Surgical History: Reports: LASIK GI Surgical History: Reports: Bariatric Procedure, Cholecystectomy, Colonoscopy , EGD, Hernia, Abdominal, Lysis of Adhesions, Small Bowel, Other (See Below) Other GI Surgeries/Procedures: revision of gastric bypass; panniculectomy; removal of gastric bypass scar tissue Social & Family History - Family History Family Medical History: Noncontributory Cardiac: Reports: [place] - Tobacco Use Smoking Status *Q: Current Every Day Smoker Years of Tobacco use: 20 Packs/Tins Daily: 0.5 - Caffeine Use Caffeine Use: Reports: Coffee Caffeine Use Comment: 2 cups/daily - Living Situation & Occupation Living situation: Reports: Occupation: Disabled ED ROS GENERAL - Review of Systems Review Of Systems: See Below Constitutional: Reports: Decreased Appetite, Other (pt has not been having stools. His last BM was on . He is not vomiting. ) HEENT: Reports: No Symptoms Respiratory: Reports: No Symptoms Cardiovascular: Reports: No Symptoms Endocrine: Reports: No Symptoms GI/Abdominal: Reports: Abdominal Pain, Constipation : Reports: No Symptoms Musculoskeletal: Reports: No Symptoms Skin: Reports: No Symptoms Neurological: Reports: No Symptoms, Other (pt has a history of tramatic brain injury ) Psychiatric: Reports: No Symptoms ED EXAM, GI/ABD - Physical Exam Exam: See Below Text/Narrative:: pt arrived feeling uncomfortable in his abdoman. He has been off of all narcotics for a month and is not interested in using any again. Exam Limited By: No Limitations General Appearance: Alert, Moderate Distress Ears: Normal TMs Nose: Normal Inspection Throat/Mouth: Normal Inspection Head: Atraumatic Neck: Normal Inspection Respiratory/Chest: No Respiratory Distress Cardiovascular: Regular Rate, Rhythm GI/Abdominal Exam: Other ( diffuse tenderness more on the rt than the left. ) (Male) Exam: Deferred Rectal (Males) Exam: Deferred Back Exam: Normal Inspection Extremities: Normal Inspection Neurological: Alert, Oriented, Normal Cognition Course - Vital Signs Last Recorded V/S: Last Vital Signs Temp 37.2 C 01/17/19 22:37 Pulse 60 01/17/19 22:37 Resp 17 01/17/19 22:37 BP 145/85 H 01/17/19 22:37 Pulse Ox 98 01/17/19 22:37 - Orders/Labs/Meds Orders: Active Orders 24 hr Category Date Time Status CRP [C-REACTIVE PROTEIN] [CHEM] Stat Lab 01/18/19 00:59 Ordered Sodium Chloride 0.9% [Normal Saline] 1,000 ml Med 01/17/19 22:45 Active IV ASDIRECTED Medication Orders Sodium Chloride (Normal Saline) 1,000 mls @ 999 mls/hr IV ASDIRECTED JUDY Last Admin: 01/17/19 22:50 Dose: 999 mls/hr Labs: Laboratory Tests 01/17/19 01/17/19 01/17/19 Range/Units 22:48 22:48 23:22 WBC 8.2 (4.5-11.0) K/uL RBC 4.89 (4.30-5.90) M/uL Hgb 15.9 H D (12.0-15.0) g/dL Hct 45.9 (40.0-54.0) % MCV 94 (80-98) fL MCH 33 H (27-31) pg MCHC 35 (32-36) % Plt Count 142 L (150-400) K/uL Neut % (Auto) 60 (36-66) % Lymph % (Auto) 32 (24-44) % [place] % (Auto) 6 (2-6) % Eos % (Auto) 2 (2-4) % Baso % (Auto) 0 (0-1) % Sodium 140 (140-148) mmol/L Potassium 3.9 (3.6-5.2) mmol/L Chloride 103 (100-108) mmol/L Carbon Dioxide 31 (21-32) mmol/L Anion Gap 6.0 (5.0-14.0) mmol/L BUN 12 (7-18) mg/dL Creatinine 0.9 (0.8-1.3) mg/dL Est Cr Clr Drug Dosing 109.23 mL/min Estimated GFR (MDRD) > 60 (>60) Glucose 88 (74-106) mg/dL Calcium 9.2 (8.5-10.1) mg/dL Total Bilirubin 0.6 D (0.2-1.0) mg/dL AST 34 (15-37) U/L ALT 55 (12-78) U/L Alkaline Phosphatase 114 (46-116) U/L Total Protein 6.6 (6.4-8.2) g/dL Albumin 3.7 (3.4-5.0) g/dL Globulin 2.9 (2.3-3.5) g/dL Albumin/Globulin Ratio 1.3 (1.2-2.2) Urine Color Yellow Urine Appearance Clear Urine pH 6.0 (4.5-8.0) Ur Specific [place] 1.015 (1.008-1.030) Urine Protein Negative (NEGATIVE) mg/dL Urine Glucose (UA) Normal (NEGATIVE) mg/dL Urine Ketones 15 H (NEGATIVE) mg/dL Urine Occult Blood Negative (NEGATIVE) Urine Nitrite Negative (NEGAITVE) Urine Bilirubin Negative (NEGATIVE) Urine Urobilinogen Normal (NORMAL) mg/dL Ur Leukocyte Esterase Negative (NEGATIVE) Urine RBC 0-5 (0-5) Urine WBC 0-5 (0-5) Ur Epithelial Cells Few Amorphous Sediment Not seen Urine Bacteria Few Urine Mucus Not seen Meds: Medications Generic Name Dose Route Start Last Admin Trade Name Freq PRN Reason Stop Dose Admin Sodium Chloride 1,000 mls @ 999 mls/hr 01/17/19 22:45 01/17/19 22:50 Normal Saline IV 999 mls/hr ASDIRECTED JUDY Administration Discontinued Medications Generic Name Dose Route Start Last Admin Trade Name Freq PRN Reason Stop Dose Admin Ketorolac Tromethamine 30 mg 01/17/19 22:36 01/17/19 22:50 Toradol IVPUSH 01/17/19 22:37 30 mg ONETIME ONE Administration - Re-Assessments/Exams Free Text/Narrative Re-Assessment/Exam: 01/18/19 01:16 pt is very constipated. He had a cat scan which shows some bowel thickening and a area of stasis. He has taken 5 does of miralax today with no results. He is uncomfortable.He is using medical marjauna for pain control. Departure - Departure Time of Disposition: 01:18 Disposition: Admitted As Inpatient 68 Condition: Fair Clinical Impression: Bowel wall thickening, Constipation - Discharge Information Referrals: Connor Lopez MD [Primary Care Provider] - Forms: ED Department Discharge Care Plan Goals: admit to [facility] with Dr Ayon to Consult. - My Orders Last 24 Hours: My Active Orders 01/17/19 22:45 Sodium Chloride 0.9% [Normal Saline] 1,000 ml IV ASDIRECTED 01/18/19 00:59 CRP [C-REACTIVE PROTEIN] [CHEM] Stat - Assessment/Plan Last 24 Hours: My Active Orders 01/17/19 22:45 Sodium Chloride 0.9% [Normal Saline] 1,000 ml IV ASDIRECTED 01/18/19 00:59 CRP [C-REACTIVE PROTEIN] [CHEM] Stat
[2019-01-17] MEDS ORDERED: Sodium Chloride 0.9% 1,000 ML IV SCH (22:45)
--- NOTE | 2019-01-17 23:34 | CRLCR ---
INDICATION: Abdomen pain TECHNIQUE: Chest and Abdominal radiograph 6 view COMPARISON: 10/08/2018 FINDINGS: CHEST: Mediastinum: The mediastinum is normal in appearance. The heart silhouette is normal in size and morphology. Lung: Both lungs are unremarkable in appearance. No sign of pleural effusion seen. No pneumothorax is identified. ABDOMEN: Bowel: There is a dilated loop of small bowel in the mid abdomen measuring 4.5 cm in diameter. Small amount of gas with moderate amount of stool seen throughout the colon. Soft tissue: No evidence of pneumoperitoneum present. No suspicious calcifications noted. Surgical clips are noted in the right upper quadrant from prior cholecystectomy. Bone: Unremarkable for age. IMPRESSION: 1. There is a dilated loop of small bowel in the mid abdomen measuring 4.5 cm in diameter. Follow-up imaging recommended to distinguish between a sentinel loop or early small-bowel obstruction. Dictated by Salvador Dugan MD @ 01/17/2019 11:33:59 PM Dictated by: Salvador Dugan MD @ 01/17/2019 23:34:09 (Electronically Signed)
--- NOTE | 2019-01-18 00:57 | CRLCT ---
INDICATION: Mid abdomen pain TECHNIQUE: CT Abdomen and pelvis without i.v. contrast. Coronal and sagittal reformats were obtained. COMPARISON: 10/07/2018 FINDINGS: Lower chest: Unremarkable. Mild anemia is present with the cardiac chambers appearing lucent with respect to the myocardium. Liver: Unremarkable. Spleen: Unremarkable. Pancreas: Unremarkable. Gallbladder: Previous cholecystectomy noted without significant intra- or extrahepatic biliary ductal dilatation seen. Kidney: Unremarkable. No kidney or ureteral stones or obstruction seen. Adrenal: Unremarkable. Bowel: Previous antegastric-antecolic gastric bypass noted with no definite obstruction of the biliopancreatic limb or Giovany-en-Y loop seen. There is a segment of small bowel in the right lower quadrant with moderate wall thickening present, just proximal to an anastomotic staple line. Small bowel stool present, indicative of stasis. The appendix is normal in appearance and size. Vascular: Unremarkable. Lymph: Unremarkable. Peritoneum: Unremarkable. No pneumoperitoneum is seen. No significant ascites is noted. Pelvis: Unremarkable. Soft tissue: Unremarkable. Bone: Unremarkable for age. IMPRESSION: 1. There is a segment of small bowel in the right lower quadrant with moderate wall thickening present, just proximal to an anastomotic staple line. This appearance is nonspecific and can be seen with Crohn`s disease, infectious enteritis, or ischemia. Neoplastic etiologies are considered unlikely given that this finding is developed in the last 2 months. Further characterization with small-bowel enema may be helpful. Dictated by Salvador Dugan MD @ 01/18/2019 12:55:05 AM Please note that all CT scans at this facility use dose modulation, iterative reconstruction, and/or weight-based dosing when appropriate to reduce radiation dose to as low as reasonably achievable. Dictated by: Salvador Dugan MD @ 01/18/2019 00:55:15 (Electronically Signed)
[2019-01-18] MEDS ORDERED: LORazepam 2 MG/ML SDV IVPUSH ONE (01:29)
--- NOTE | 2019-01-18 01:54 | PCM.HP ---
H&P History of Present Illness - General Date of Service: 01/17/19 Admit Problem/Dx: Admission Diagnosis/Problem Admission Diagnosis/Problem Abdominal pain Source of Information: Patient, Provider, RN History Limitations: Reports: No Limitations - History of Present Illness Initial Comments - Free Text/Narative: Chief complaint: abdominal pain This is a 48 year old male present to ER for evaluation of acute abdominal pain. reports has not had a bowel movement for 4 days, now having waves of acute pain and nausea, has tried 5 doses of Miralax without relief. He had labs , normal WBC, CBC, CMP, Urine with ketones. CT Abdomen-pelvis impression: there is a segment of small bowel in the right lower quadrant with mdoerate wall thickening present. just proximal to an anastomotic staple line. This appearance is nonspecific and can be seen with Crhohn's disease, infectious enteritis,or ischemia. Consult with Dr. Hipolito Ayon, recommends full liquid diet, pain control and will evaluate in am. - Related Data Allergies/Adverse Reactions: Allergies Allergy/AdvReac Type Severity Reaction Status Date / Time Iodinated Contrast- Oral and Allergy Unknown Itching Verified 11/15/18 13:31 IV Dye [Iodinated Contrast Media - IV Dye] iohexol [From Omnipaque 140] Allergy Unknown unknown Verified 11/15/18 13:31 morphine Allergy Unknown Itching Verified 11/15/18 13:31 adhesive tape Allergy Blisters Verified 11/15/18 13:31 oxycodone [From Percocet] Allergy Itching Verified 11/15/18 13:31 surgical lisa Allergy Blisters Uncoded 11/15/18 13:31 Home Medications: Home Meds Cholecalciferol (Vitamin D3) [Vitamin D3] 5,000 units PO DAILY 11/21/13 [History ] Diclofenac Sodium [Voltaren 1% Gel] 1 applic TP QID 11/21/13 [History] Multivitamin [Multivitamins] 1 cap PO BID 11/21/13 [History] Propranolol [Inderal] 40 - 80 mg PO TID 11/21/13 [History] Vitamin B Complex 1 each PO ACBREAKFAST 11/21/13 [History] Rizatriptan Benzoate [Rizatriptan] 10 mg SL ASDIRECTED PRN 01/16/15 [History] Calcium Citrate 250 mg PO QPM 10/09/16 [History] Cyanocobalamin (Vitamin B-12) [Cyanocobalamin Injection] 1,000 mcg IJ .[id number] 10/06/17 [History] DULoxetine HCl [Duloxetine HCl] 90 mg PO QAM 10/06/17 [History] Folic Acid 1 mg PO DAILY 10/06/17 [History] Zinc Gluconate [Zinc] 50 mg PO DAILY 10/06/17 [History] Amitriptyline HCl 150 mg PO BEDTIME 02/01/18 [History] Acarbose [Precose] 75 mg PO TIDMEALS tablet 02/06/18 [Rx] Polyethylene Glycol 3350 [MiraLAX] 85 gm PO DAILY #100 packet 02/06/18 [Rx] Furosemide [Lasix] 20 mg PO DAILY 02/08/18 [History] Tamsulosin [Flomax] 0.4 mg PO DAILY 02/08/18 [History] Ascorbic Acid [C-1000 with Sintia Hips] 1,000 mg PO DAILY 10/06/18 [History] Gabapentin [Neurontin] 600 mg PO TID 10/06/18 [History] Naloxegol Oxalate [Movantik] 25 mg PO DAILY 10/06/18 [History] Fluticasone Propionate [Flonase] 2 spray NASBOTH BEDTIME 11/15/18 [History] Sennosides/Docusate Sodium [Senna Plus Tablet] 3 tab PO BEDTIME 11/15/18 [ History] Norethindrone [Stephanie] 3 ml PO BID 01/17/19 [History] [place] Oil 9 ml MC BEDTIME 01/17/19 [History] Past Medical History HEENT History: Reports: Allergic Rhinitis, Impaired Vision Other HEENT History: wears glasses, sensitive to light Cardiovascular History: Reports: Syncope Other Cardiovascular History: possible PE now Respiratory History: Reports: Intubation, Previous, Pneumonia, Recurrent Gastrointestinal History: Reports: Bowel Obstruction, Cholelithiasis, Chronic Constipation, GERD Genitourinary History: Reports: Renal Calculus Musculoskeletal History: Reports: Back Pain, Chronic, Fibromyalgia, Osteoarthritis Other Musculoskeletal History: arthritis Neurological History: Reports: Brain Injury, Concussion, Headaches, Chronic, Head Trauma, Migraines Other Neuro History: mid-line shift Psychiatric History: Reports: Antisocial Behaviors, Anxiety, Depression, Emotional Problems, PTSD, Other (See Below) Other Psychiatric History: tbi 4 years ago Endocrine/Metabolic History: Reports: Other (See Below) Other Endocrine/Metabolic History: hypoglycemia Hematologic History: Reports: Anemia, B12 Deficiency, Iron Deficiency Dermatologic History: Reports: Other (See Below) Other Dermatologic History: itching from contrast dye - Infectious Disease History Infectious Disease History: Reports: Chicken Pox - Past Surgical History HEENT Surgical History: Reports: LASIK GI Surgical History: Reports: Bariatric Procedure, Cholecystectomy, Colonoscopy , EGD, Hernia, Abdominal, Lysis of Adhesions, Small Bowel, Other (See Below) Other GI Surgeries/Procedures: revision of gastric bypass; panniculectomy; removal of gastric bypass scar tissue Social & Family History - Family History Family Medical History: Noncontributory Cardiac: Reports: [place] - Tobacco Use Smoking Status *Q: Current Every Day Smoker Years of Tobacco use: 20 Packs/Tins Daily: 0.5 - Caffeine Use Caffeine Use: Reports: Coffee Caffeine Use Comment: 2 cups/daily - Living Situation & Occupation Living situation: Reports: (lives with in [facility]) Occupation: Disabled H&P Review of Systems - Review of Systems: Review Of Systems: See Below General: Reports: Malaise, Fatigue, Decreased Appetite HEENT: Reports: No Symptoms Pulmonary: Reports: No Symptoms Cardiovascular: Reports: No Symptoms Gastrointestinal: Reports: Abdominal Pain, Constipation (last bowel movement 4 + days ago), Decreased Appetite, Nausea Genitourinary: Reports: No Symptoms Musculoskeletal: Reports: Back Pain (chronic) Skin: Reports: No Symptoms Psychiatric: Reports: Depression, Anxiety Neurological: Reports: Pre-Existing Deficit (TBI) Hematologic/Lymphatic: Reports: No Symptoms Immunologic: Reports: No Symptoms Exam - Exam Exam: See Below - Vital Signs Vital Signs: Last Vital Signs Temp 37.2 C 01/17/19 22:37 Pulse 60 01/17/19 22:37 Resp 17 01/17/19 22:37 BP 145/85 H 01/17/19 22:37 Pulse Ox 98 01/17/19 22:37 Weight: 81.2 kg - Exam General: Alert, Oriented, Cooperative, Moderate Distress, Other (thin) HEENT: PERRLA, Conjunctiva Clear, EACs Clear, EOMI, Hearing Intact Neck: Supple, Trachea Midline Lungs: Clear to Auscultation, Normal Respiratory Effort Cardiovascular: Regular Rate, Regular Rhythm, Normal S1, Normal S2 GI/Abdominal Exam: Soft, Tender (generalized acute pain, no guarding or rebound pain), Other (bowel sounds present.) (Male) Exam: Deferred Rectal (Males) Exam: Deferred Back Exam: Normal Inspection, Full Range of Motion Extremities: Normal Inspection, Normal Range of Motion, No Pedal Edema, Normal Capillary Refill Skin: Warm, Dry, Intact Neurological: Reflexes Equal Bilateral, Strength Equal Bilateral Neuro Extensive - Mental Status: Alert, Normal Mood/Affect Neuro Extensive - Motor, Sensory, Reflexes: Normal Gait, Normal Reflexes Psychiatric: Alert, Anxious - Patient Data Lab Results Last 24 hrs: Laboratory Results - last 24 hr 01/17/19 01/17/19 01/17/19 Range/Units 22:48 22:48 23:22 WBC 8.2 (4.5-11.0) K/uL RBC 4.89 (4.30-5.90) M/uL Hgb 15.9 H D (12.0-15.0) g/dL Hct 45.9 (40.0-54.0) % MCV 94 (80-98) fL MCH 33 H (27-31) pg MCHC 35 (32-36) % Plt Count 142 L (150-400) K/uL Neut % (Auto) 60 (36-66) % Lymph % (Auto) 32 (24-44) % [place] % (Auto) 6 (2-6) % Eos % (Auto) 2 (2-4) % Baso % (Auto) 0 (0-1) % Sodium 140 (140-148) mmol/L Potassium 3.9 (3.6-5.2) mmol/L Chloride 103 (100-108) mmol/L Carbon Dioxide 31 (21-32) mmol/L Anion Gap 6.0 (5.0-14.0) mmol/L BUN 12 (7-18) mg/dL Creatinine 0.9 (0.8-1.3) mg/dL Est Cr Clr Drug Dosing 109.23 mL/min Estimated GFR (MDRD) > 60 (>60) Glucose 88 (74-106) mg/dL Calcium 9.2 (8.5-10.1) mg/dL Total Bilirubin 0.6 D (0.2-1.0) mg/dL AST 34 (15-37) U/L ALT 55 (12-78) U/L Alkaline Phosphatase 114 (46-116) U/L C-Reactive Protein (0.0-0.3) mg/dL Total Protein 6.6 (6.4-8.2) g/dL Albumin 3.7 (3.4-5.0) g/dL Globulin 2.9 (2.3-3.5) g/dL Albumin/Globulin Ratio 1.3 (1.2-2.2) Urine Color Yellow Urine Appearance Clear Urine pH 6.0 (4.5-8.0) Ur Specific [place] 1.015 (1.008-1.030) Urine Protein Negative (NEGATIVE) mg/dL Urine Glucose (UA) Normal (NEGATIVE) mg/dL Urine Ketones 15 H (NEGATIVE) mg/dL Urine Occult Blood Negative (NEGATIVE) Urine Nitrite Negative (NEGAITVE) Urine Bilirubin Negative (NEGATIVE) Urine Urobilinogen Normal (NORMAL) mg/dL Ur Leukocyte Esterase Negative (NEGATIVE) Urine RBC 0-5 (0-5) Urine WBC 0-5 (0-5) Ur Epithelial Cells Few Amorphous Sediment Not seen Urine Bacteria Few Urine Mucus Not seen 01/18/19 Range/Units 00:59 WBC (4.5-11.0) K/uL RBC (4.30-5.90) M/uL Hgb (12.0-15.0) g/dL Hct (40.0-54.0) % MCV (80-98) fL MCH (27-31) pg MCHC (32-36) % Plt Count (150-400) K/uL Neut % (Auto) (36-66) % Lymph % (Auto) (24-44) % [place] % (Auto) (2-6) % Eos % (Auto) (2-4) % Baso % (Auto) (0-1) % Sodium (140-148) mmol/L Potassium (3.6-5.2) mmol/L Chloride (100-108) mmol/L Carbon Dioxide (21-32) mmol/L Anion Gap (5.0-14.0) mmol/L BUN (7-18) mg/dL Creatinine (0.8-1.3) mg/dL Est Cr Clr Drug Dosing mL/min Estimated GFR (MDRD) (>60) Glucose (74-106) mg/dL Calcium (8.5-10.1) mg/dL Total Bilirubin (0.2-1.0) mg/dL AST (15-37) U/L ALT (12-78) U/L Alkaline Phosphatase (46-116) U/L C-Reactive Protein 0.08 (0.0-0.3) mg/dL Total Protein (6.4-8.2) g/dL Albumin (3.4-5.0) g/dL Globulin (2.3-3.5) g/dL Albumin/Globulin Ratio (1.2-2.2) Urine Color Urine Appearance Urine pH (4.5-8.0) Ur Specific [place] (1.008-1.030) Urine Protein (NEGATIVE) mg/dL Urine Glucose (UA) (NEGATIVE) mg/dL Urine Ketones (NEGATIVE) mg/dL Urine Occult Blood (NEGATIVE) Urine Nitrite (NEGAITVE) Urine Bilirubin (NEGATIVE) Urine Urobilinogen (NORMAL) mg/dL Ur Leukocyte Esterase (NEGATIVE) Urine RBC (0-5) Urine WBC (0-5) Ur Epithelial Cells Amorphous Sediment Urine Bacteria Urine Mucus Result Diagrams: 01/17/19 22:48 01/17/19 22:48 - Problem List (1) Abdominal pain SNOMED Code(s): 55302969 ICD Code: R10.9 - UNSPECIFIED ABDOMINAL PAIN Status: Acute Priority: High Current Visit: Yes Qualifiers: Abdominal location: generalized Qualified Code(s): R10.84 - Generalized abdominal pain (2) Bowel wall thickening SNOMED Code(s): 487225817 ICD Code: K63.9 - DISEASE OF INTESTINE, UNSPECIFIED Status: Acute Priority: High Current Visit: Yes (3) Status post bariatric surgery SNOMED Code(s): 677099988, 063538560, 283540805 ICD Code: Z98.84 - BARIATRIC SURGERY STATUS Status: Chronic Priority: High Current Visit: Yes (4) Constipation SNOMED Code(s): 18782365 ICD Code: K59.00 - CONSTIPATION, UNSPECIFIED Status: Acute Priority: High Current Visit: Yes Qualifiers: Constipation type: slow transit constipation Qualified Code(s): K59.01 - Slow transit constipation (5) Tobacco use SNOMED Code(s): 647223113 ICD Code: Z72.0 - TOBACCO USE Status: Acute Priority: Low Current Visit : Yes (6) Anxiety disorder SNOMED Code(s): 289794480 ICD Code: F41.9 - ANXIETY DISORDER, UNSPECIFIED Status: Chronic Priority : Low Current Visit: No Qualifiers: Anxiety disorder type: generalized anxiety disorder Qualified Code(s): F41.1 - Generalized anxiety disorder Problem List Initiated/Reviewed/Updated: Yes Orders Last 24hrs: Active Orders 24 hr Category Date Time Status Patient Status Manage Transfer [TRANSFER] Routine ADT 01/18/19 01:33 Ordered Sodium Chloride 0.9% [Normal Saline] 1,000 ml Med 01/17/19 22:45 Active IV ASDIRECTED Resuscitation Status Routine Resus Stat 01/18/19 01:34 Ordered Medication Orders Sodium Chloride (Normal Saline) 1,000 mls @ 999 mls/hr IV ASDIRECTED JUDY Last Admin: 01/17/19 22:50 Dose: 999 mls/hr Assessment/Plan Comment:: Chief complaint: abdominal pain This is a 48 year old male present to ER for evaluation of acute abdominal pain. reports has not had a bowel movement for 4 days, now having waves of acute pain and nausea, has tried 5 doses of Miralax without relief. He had labs , normal WBC, CBC, CMP, Urine with ketones. CT Abdomen-pelvis impression: there is a segment of small bowel in the right lower quadrant with mdoerate wall thickening present. just proximal to an anastomotic staple line. This appearance is nonspecific and can be seen with Crhohn's disease, infectious enteritis,or ischemia. Consult with Dr. Hipolito Ayon, recommends full liquid diet, pain control and will evaluate in am. sessment/Plan Comment:: ASSESSMENT AND PLAN ABDOMINAL PAIN, bowel wall thickening, constipation, hx of bariatric surgery- -symptoms present over the past 4 days acute abdominal pain. with constipation -CT scan of the abdomen and pelvis abnormal see above report. -Consult to Dr. Donaldo Ayon -Full liquid diet -IV fluids for hydration, LR at 125ml/hr -[employer] Dilaudid for pain control -Medication for nausea as needed, reports Zofran does not relieve nausea -Protonix 40 mg IV every 12 hours Anxiety with depression -continue home medications -treat anxiety as needed MAINTENANCE ISSUES -DVT prophylaxis;SCD -GI prophylaxis; Protonix as above -Ponce catheter; not indicated -Nutrition; full liquid diet -Nicotine dependence; Nicotine patch 14 mcg daily CODE STATUS-DNR/DNI ADMISSION STATUS-patient will be admitted to inpatient status, expect at least a 2 night hospital stay for evaluation and management of problems as outlined above. At the time of this admission I do not reasonably expected evaluation and management of this problem will require more than a 96 hour hospital stay. DISPOSITION-anticipate discharge to home PRIMARY CARE PROVIDER-Dr. Donaldo Ayon and Dr. Lopez HOSPITALIST - Dr. Moy
[2019-01-18] MEDS ORDERED: Lactated Ringers 1,000 ML IV SCH ×2 (02:25→07:15)
[2019-01-18] MEDS ORDERED: Naloxone 0.4 MG/ML SDV IVPUSH PRN (02:25)
[2019-01-18] MEDS ORDERED: HYDROmorphone/Normal Saline 15 MG/30 ML PCA IV PRN (02:25)
[2019-01-18] MEDS ORDERED: LORazepam 2 MG/ML SDV IV PRN (02:25)
[2019-01-18] MEDS ORDERED: Albuterol 0.083% 2.5 MG/3 ML Neb Soln NEB PRN (02:25)
[2019-01-18] MEDS: Nicotine 14 MG/24 Hr Patch TRDERM SCH ×2 (02:57→08:50)
[2019-01-18] MEDS: DULoxetine 30 MG Cap PO SCH (08:46)
[2019-01-18] MEDS: Gabapentin 300 MG Cap PO SCH ×3 (08:46→20:21)
[2019-01-18] MEDS: Folic Acid 1 MG Tab PO SCH (08:46)
[2019-01-18] MEDS: Propranolol 40 MG Tab PO SCH ×3 (08:46→20:21)
[2019-01-18] MEDS: Pantoprazole 40 MG Tab.CR PO SCH (08:46)
[2019-01-18] MEDS: Furosemide 20 MG Tab PO SCH (08:46)
[2019-01-18] MEDS: Naloxegol Oxalate 25 MG Tab PO SCH (08:47)
[2019-01-18] MEDS ORDERED: Pantoprazole 40 MG Vial IVPUSH SCH (09:00)
[2019-01-18] MEDS ORDERED: Polyethylene Glycol 3350 Powder 238 GM Bot PO ONE (09:00)
[2019-01-18] MEDS ORDERED: Tamsulosin 0.4 MG Cap.ER PO SCH ×2 (09:00→21:00)
[2019-01-18] MEDS: [UNRECOGNIZED DRUG - OTHER] PO SCH ×2 (09:58→20:17)
--- NOTE | 2019-01-18 10:14 | PCM.PN ---
- General Info Date of Service: 01/18/19 - Patient Data Vitals - Most Recent: Last Vital Signs Temp 98.9 F 01/18/19 08:16 Pulse 63 01/18/19 08:16 Resp 16 01/18/19 08:16 BP 119/68 01/18/19 08:16 Pulse Ox 96 01/18/19 08:16 Weight - Most Recent: 182 lb 15.739 oz I&O - Last 24 Hours: Intake & Output 01/17/19 01/18/19 01/18/19 22:59 06:59 14:59 Intake Total 949 Output Total 300 Balance 649 Lab Results Last 24 Hours: Laboratory Results - last 24 hr 01/17/19 01/17/19 01/17/19 Range/Units 22:48 22:48 23:22 WBC 8.2 (4.5-11.0) K/uL RBC 4.89 (4.30-5.90) M/uL Hgb 15.9 H D (12.0-15.0) g/dL Hct 45.9 (40.0-54.0) % MCV 94 (80-98) fL MCH 33 H (27-31) pg MCHC 35 (32-36) % Plt Count 142 L (150-400) K/uL Neut % (Auto) 60 (36-66) % Lymph % (Auto) 32 (24-44) % [place] % (Auto) 6 (2-6) % Eos % (Auto) 2 (2-4) % Baso % (Auto) 0 (0-1) % Sodium 140 (140-148) mmol/L Potassium 3.9 (3.6-5.2) mmol/L Chloride 103 (100-108) mmol/L Carbon Dioxide 31 (21-32) mmol/L Anion Gap 6.0 (5.0-14.0) mmol/L BUN 12 (7-18) mg/dL Creatinine 0.9 (0.8-1.3) mg/dL Est Cr Clr Drug Dosing 109.23 mL/min Estimated GFR (MDRD) > 60 (>60) Glucose 88 (74-106) mg/dL Calcium 9.2 (8.5-10.1) mg/dL Total Bilirubin 0.6 D (0.2-1.0) mg/dL AST 34 (15-37) U/L ALT 55 (12-78) U/L Alkaline Phosphatase 114 (46-116) U/L C-Reactive Protein (0.0-0.3) mg/dL Total Protein 6.6 (6.4-8.2) g/dL Albumin 3.7 (3.4-5.0) g/dL Globulin 2.9 (2.3-3.5) g/dL Albumin/Globulin Ratio 1.3 (1.2-2.2) Urine Color Yellow Urine Appearance Clear Urine pH 6.0 (4.5-8.0) Ur Specific [place] 1.015 (1.008-1.030) Urine Protein Negative (NEGATIVE) mg/dL Urine Glucose (UA) Normal (NEGATIVE) mg/dL Urine Ketones 15 H (NEGATIVE) mg/dL Urine Occult Blood Negative (NEGATIVE) Urine Nitrite Negative (NEGAITVE) Urine Bilirubin Negative (NEGATIVE) Urine Urobilinogen Normal (NORMAL) mg/dL Ur Leukocyte Esterase Negative (NEGATIVE) Urine RBC 0-5 (0-5) Urine WBC 0-5 (0-5) Ur Epithelial Cells Few Amorphous Sediment Not seen Urine Bacteria Few Urine Mucus Not seen 01/18/19 Range/Units 00:59 WBC (4.5-11.0) K/uL RBC (4.30-5.90) M/uL Hgb (12.0-15.0) g/dL Hct (40.0-54.0) % MCV (80-98) fL MCH (27-31) pg MCHC (32-36) % Plt Count (150-400) K/uL Neut % (Auto) (36-66) % Lymph % (Auto) (24-44) % [place] % (Auto) (2-6) % Eos % (Auto) (2-4) % Baso % (Auto) (0-1) % Sodium (140-148) mmol/L Potassium (3.6-5.2) mmol/L Chloride (100-108) mmol/L Carbon Dioxide (21-32) mmol/L Anion Gap (5.0-14.0) mmol/L BUN (7-18) mg/dL Creatinine (0.8-1.3) mg/dL Est Cr Clr Drug Dosing mL/min Estimated GFR (MDRD) (>60) Glucose (74-106) mg/dL Calcium (8.5-10.1) mg/dL Total Bilirubin (0.2-1.0) mg/dL AST (15-37) U/L ALT (12-78) U/L Alkaline Phosphatase (46-116) U/L C-Reactive Protein 0.08 (0.0-0.3) mg/dL Total Protein (6.4-8.2) g/dL Albumin (3.4-5.0) g/dL Globulin (2.3-3.5) g/dL Albumin/Globulin Ratio (1.2-2.2) Urine Color Urine Appearance Urine pH (4.5-8.0) Ur Specific [place] (1.008-1.030) Urine Protein (NEGATIVE) mg/dL Urine Glucose (UA) (NEGATIVE) mg/dL Urine Ketones (NEGATIVE) mg/dL Urine Occult Blood (NEGATIVE) Urine Nitrite (NEGAITVE) Urine Bilirubin (NEGATIVE) Urine Urobilinogen (NORMAL) mg/dL Ur Leukocyte Esterase (NEGATIVE) Urine RBC (0-5) Urine WBC (0-5) Ur Epithelial Cells Amorphous Sediment Urine Bacteria Urine Mucus Med Orders - Current: Current Medications Acarbose (Precose) 75 mg PO TIDMEALS [facility] Last Admin: 01/18/19 08:45 Dose: 75 mg Albuterol (Proventil Neb Soln) 2.5 mg NEB Q4H PRN PRN Reason: Shortness Of Breath/wheezing Amitriptyline HCl (Elavil) 150 mg PO BEDTIME [facility] Duloxetine HCl (Cymbalta) 90 mg PO QAM [facility] Last Admin: 01/18/19 08:46 Dose: 90 mg Fluticasone Propionate (Flonase) 0 gm NASBOTH BEDTIME [facility] Folic Acid (Folic Acid) 1 mg PO DAILY [facility] Last Admin: 01/18/19 08:46 Dose: 1 mg Furosemide (Lasix) 20 mg PO DAILY [facility] Last Admin: 01/18/19 08:46 Dose: 20 mg Gabapentin (Neurontin) 600 mg PO TID [facility] Last Admin: 01/18/19 08:46 Dose: 600 mg Lactated Ringer's (Ringers, Lactated) 1,000 mls @ 0 mls/hr IV ASDIRECTED [facility] Lorazepam (Ativan) 1 mg IV Q6H PRN PRN Reason: Nausea/Vomiting Naloxegol (Movantik) 25 mg PO DAILY [facility] Last Admin: 01/18/19 08:47 Dose: Not Given Nicotine (Habitrol) 14 mg TRDERM DAILY [facility] Last Admin: 01/18/19 08:50 Dose: 14 mg Pantoprazole Sodium (Protonix) 40 mg PO ACBREAKFAST [facility] Last Admin: 01/18/19 08:46 Dose: 40 mg Stephanie Oral (Suspension Pom) 0 each PO BID [facility] Last Admin: 01/18/19 09:58 Dose: 1 each Propranolol HCl (Inderal) 40 mg PO TID [facility] Last Admin: 01/18/19 08:46 Dose: 40 mg Senna/Docusate Sodium (Senna Plus) 3 tab PO BEDTIME [facility] Tamsulosin HCl (Flomax) 0.4 mg PO BEDTIME [facility] Discontinued Medications Hydromorphone HCl (Dilaudid Front End Driver 15 Mg In Ns 30 Ml) 0 mg IV ASDIRECTED PRN; Protocol PRN Reason: Pain Last Admin: 01/18/19 02:45 Dose: 15 mg Sodium Chloride (Normal Saline) 1,000 mls @ 999 mls/hr IV ASDIRECTED [facility] Last Admin: 01/17/19 22:50 Dose: 999 mls/hr Lactated Ringer's (Ringers, Lactated) 1,000 mls @ 125 mls/hr IV ASDIRECTED [facility] Last Admin: 01/18/19 02:47 Dose: 125 mls/hr Ketorolac Tromethamine (Toradol) 30 mg IVPUSH ONETIME ONE Stop: 01/17/19 22:37 Last Admin: 01/17/19 22:50 Dose: 30 mg Lorazepam (Ativan) 1 mg IVPUSH ONETIME ONE Stop: 01/18/19 01:30 Last Admin: 01/18/19 01:43 Dose: 1 mg Naloxone HCl (Narcan) 0.4 mg IVPUSH Q2M PRN PRN Reason: Respiratory Distress Pantoprazole Sodium (Protonix Iv) 40 mg IVPUSH DAILY [facility] Polyethylene Glycol (Miralax) 238 gm PO ONETIME ONE Stop: 01/18/19 09:01 Last Admin: 01/18/19 08:42 Dose: 238 gm Tamsulosin HCl (Flomax) 0.4 mg PO DAILY [facility] - Plan Plan:: Chief complaint: abdominal pain This is a 48 year old male present to ER for evaluation of acute abdominal pain. reports has not had a bowel movement for 4 days, now having waves of acute pain and nausea, has tried 5 doses of Miralax without relief. He had labs , normal WBC, CBC, CMP, Urine with ketones. CT Abdomen-pelvis impression: there is a segment of small bowel in the right lower quadrant with mdoerate wall thickening present. just proximal to an anastomotic staple line. This appearance is nonspecific and can be seen with Crhohn's disease, infectious enteritis,or ischemia. Consult with Dr. Hipolito Ayon, recommends full liquid diet, pain control and will evaluate in am. sessment/Plan Comment:: ASSESSMENT AND PLAN ABDOMINAL PAIN, bowel wall thickening, constipation, hx of bariatric surgery- -symptoms present over the past 4 days acute abdominal pain. with constipation -CT scan of the abdomen and pelvis abnormal see above report. -Consult to Dr. Donaldo Ayon -Full liquid diet -IV fluids for hydration, LR at 125ml/hr -[employer] TECHNICIAN Dilaudid for pain control -Medication for nausea as needed, reports Zofran does not relieve nausea -Protonix 40 mg IV every 12 hours Anxiety with depression -continue home medications -treat anxiety as needed MAINTENANCE ISSUES -DVT prophylaxis;SCD -GI prophylaxis; Protonix as above -Ponce catheter; not indicated -Nutrition; full liquid diet -Nicotine dependence; Nicotine patch 14 mcg daily CODE STATUS-DNR/DNI ADMISSION STATUS-patient will be admitted to inpatient status, expect at least a 2 night hospital stay for evaluation and management of problems as outlined above. At the time of this admission I do not reasonably expected evaluation and management of this problem will require more than a 96 hour hospital stay. DISPOSITION-anticipate discharge to home PRIMARY CARE PROVIDER-Dr. Donaldo Ayon and Dr. Lopze HOSPITALIST - Dr. Moy
--- NOTE | 2019-01-18 13:19 | PCM.PN ---
- General Info Date of Service: 01/18/19 Subjective Update: Mr. Smith is a 48-year-old gentleman who was admitted through the emergency department last night with recurrent abdominal pain. He is status post Giovany-en- Y gastric bypass surgery and has had a long-standing history of recurrent abdominal pain. Evaluations have shown no specific etiology for his symptoms. He has been seen by Dr. Ayon this morning who will be assuming his care. Functional Status: Reports: Ambulating, Urinating - Review of Systems General: Denies: Fever, Weakness, Chills Pulmonary: Reports: No Symptoms Cardiovascular: Reports: No Symptoms Gastrointestinal: Reports: Abdominal Pain. Denies: Constipation, Diarrhea, Difficulty Swallowing, Nausea, Vomiting - Patient Data Vitals - Most Recent: Last Vital Signs Temp 98.9 F 01/18/19 08:16 Pulse 63 01/18/19 08:16 Resp 16 01/18/19 08:16 BP 119/68 01/18/19 08:16 Pulse Ox 96 01/18/19 08:16 Weight - Most Recent: 182 lb 15.739 oz I&O - Last 24 Hours: Intake & Output 01/17/19 01/18/19 01/18/19 22:59 06:59 14:59 Intake Total 949 Output Total 300 900 Balance 649 -900 Lab Results Last 24 Hours: Laboratory Results - last 24 hr 01/17/19 01/17/19 01/17/19 Range/Units 22:48 22:48 23:22 WBC 8.2 (4.5-11.0) K/uL RBC 4.89 (4.30-5.90) M/uL Hgb 15.9 H D (12.0-15.0) g/dL Hct 45.9 (40.0-54.0) % MCV 94 (80-98) fL MCH 33 H (27-31) pg MCHC 35 (32-36) % Plt Count 142 L (150-400) K/uL Neut % (Auto) 60 (36-66) % Lymph % (Auto) 32 (24-44) % [place] % (Auto) 6 (2-6) % Eos % (Auto) 2 (2-4) % Baso % (Auto) 0 (0-1) % Sodium 140 (140-148) mmol/L Potassium 3.9 (3.6-5.2) mmol/L Chloride 103 (100-108) mmol/L Carbon Dioxide 31 (21-32) mmol/L Anion Gap 6.0 (5.0-14.0) mmol/L BUN 12 (7-18) mg/dL Creatinine 0.9 (0.8-1.3) mg/dL Est Cr Clr Drug Dosing 109.23 mL/min Estimated GFR (MDRD) > 60 (>60) Glucose 88 (74-106) mg/dL Calcium 9.2 (8.5-10.1) mg/dL Total Bilirubin 0.6 D (0.2-1.0) mg/dL AST 34 (15-37) U/L ALT 55 (12-78) U/L Alkaline Phosphatase 114 (46-116) U/L C-Reactive Protein (0.0-0.3) mg/dL Total Protein 6.6 (6.4-8.2) g/dL Albumin 3.7 (3.4-5.0) g/dL Globulin 2.9 (2.3-3.5) g/dL Albumin/Globulin Ratio 1.3 (1.2-2.2) Urine Color Yellow Urine Appearance Clear Urine pH 6.0 (4.5-8.0) Ur Specific [place] 1.015 (1.008-1.030) Urine Protein Negative (NEGATIVE) mg/dL Urine Glucose (UA) Normal (NEGATIVE) mg/dL Urine Ketones 15 H (NEGATIVE) mg/dL Urine Occult Blood Negative (NEGATIVE) Urine Nitrite Negative (NEGAITVE) Urine Bilirubin Negative (NEGATIVE) Urine Urobilinogen Normal (NORMAL) mg/dL Ur Leukocyte Esterase Negative (NEGATIVE) Urine RBC 0-5 (0-5) Urine WBC 0-5 (0-5) Ur Epithelial Cells Few Amorphous Sediment Not seen Urine Bacteria Few Urine Mucus Not seen 01/18/19 Range/Units 00:59 WBC (4.5-11.0) K/uL RBC (4.30-5.90) M/uL Hgb (12.0-15.0) g/dL Hct (40.0-54.0) % MCV (80-98) fL MCH (27-31) pg MCHC (32-36) % Plt Count (150-400) K/uL Neut % (Auto) (36-66) % Lymph % (Auto) (24-44) % [place] % (Auto) (2-6) % Eos % (Auto) (2-4) % Baso % (Auto) (0-1) % Sodium (140-148) mmol/L Potassium (3.6-5.2) mmol/L Chloride (100-108) mmol/L Carbon Dioxide (21-32) mmol/L Anion Gap (5.0-14.0) mmol/L BUN (7-18) mg/dL Creatinine (0.8-1.3) mg/dL Est Cr Clr Drug Dosing mL/min Estimated GFR (MDRD) (>60) Glucose (74-106) mg/dL Calcium (8.5-10.1) mg/dL Total Bilirubin (0.2-1.0) mg/dL AST (15-37) U/L ALT (12-78) U/L Alkaline Phosphatase (46-116) U/L C-Reactive Protein 0.08 (0.0-0.3) mg/dL Total Protein (6.4-8.2) g/dL Albumin (3.4-5.0) g/dL Globulin (2.3-3.5) g/dL Albumin/Globulin Ratio (1.2-2.2) Urine Color Urine Appearance Urine pH (4.5-8.0) Ur Specific [place] (1.008-1.030) Urine Protein (NEGATIVE) mg/dL Urine Glucose (UA) (NEGATIVE) mg/dL Urine Ketones (NEGATIVE) mg/dL Urine Occult Blood (NEGATIVE) Urine Nitrite (NEGAITVE) Urine Bilirubin (NEGATIVE) Urine Urobilinogen (NORMAL) mg/dL Ur Leukocyte Esterase (NEGATIVE) Urine RBC (0-5) Urine WBC (0-5) Ur Epithelial Cells Amorphous Sediment Urine Bacteria Urine Mucus Med Orders - Current: Current Medications Acarbose (Precose) 75 mg PO TIDMEALS [facility] Last Admin: 01/18/19 12:53 Dose: 75 mg Albuterol (Proventil Neb Soln) 2.5 mg NEB Q4H PRN PRN Reason: Shortness Of Breath/wheezing Amitriptyline HCl (Elavil) 150 mg PO BEDTIME [facility] Duloxetine HCl (Cymbalta) 90 mg PO QAM [facility] Last Admin: 01/18/19 08:46 Dose: 90 mg Fluticasone Propionate (Flonase) 0 gm NASBOTH BEDTIME [facility] Folic Acid (Folic Acid) 1 mg PO DAILY [facility] Last Admin: 01/18/19 08:46 Dose: 1 mg Furosemide (Lasix) 20 mg PO DAILY [facility] Last Admin: 01/18/19 08:46 Dose: 20 mg Gabapentin (Neurontin) 600 mg PO TID [facility] Last Admin: 01/18/19 08:46 Dose: 600 mg Lactated Ringer's (Ringers, Lactated) 1,000 mls @ 0 mls/hr IV ASDIRECTED [facility] Lorazepam (Ativan) 1 mg IV Q6H PRN PRN Reason: Nausea/Vomiting Last Admin: 01/18/19 11:39 Dose: 1 mg Naloxegol (Movantik) 25 mg PO DAILY [facility] Last Admin: 01/18/19 08:47 Dose: Not Given Nicotine (Habitrol) 14 mg TRDERM DAILY [facility] Last Admin: 01/18/19 08:50 Dose: 14 mg Pantoprazole Sodium (Protonix) 40 mg PO ACBREAKFAST [facility] Last Admin: 01/18/19 08:46 Dose: 40 mg Stephanie Oral (Suspension Pom) 0 each PO BID [facility] Last Admin: 01/18/19 09:58 Dose: 1 each Propranolol HCl (Inderal) 40 mg PO TID [facility] Last Admin: 01/18/19 08:46 Dose: 40 mg Senna/Docusate Sodium (Senna Plus) 3 tab PO BEDTIME [facility] Tamsulosin HCl (Flomax) 0.4 mg PO BEDTIME [facility] Discontinued Medications Hydromorphone HCl (Dilaudid Program Engineer 15 Mg In Ns 30 Ml) 0 mg IV ASDIRECTED PRN; Protocol PRN Reason: Pain Last Admin: 01/18/19 02:45 Dose: 15 mg Sodium Chloride (Normal Saline) 1,000 mls @ 999 mls/hr IV ASDIRECTED [facility] Last Admin: 01/17/19 22:50 Dose: 999 mls/hr Lactated Ringer's (Ringers, Lactated) 1,000 mls @ 125 mls/hr IV ASDIRECTED [facility] Last Admin: 01/18/19 02:47 Dose: 125 mls/hr Ketorolac Tromethamine (Toradol) 30 mg IVPUSH ONETIME ONE Stop: 01/17/19 22:37 Last Admin: 01/17/19 22:50 Dose: 30 mg Lorazepam (Ativan) 1 mg IVPUSH ONETIME ONE Stop: 01/18/19 01:30 Last Admin: 01/18/19 01:43 Dose: 1 mg Naloxone HCl (Narcan) 0.4 mg IVPUSH Q2M PRN PRN Reason: Respiratory Distress Pantoprazole Sodium (Protonix Iv) 40 mg IVPUSH DAILY [facility] Polyethylene Glycol (Miralax) 238 gm PO ONETIME ONE Stop: 01/18/19 09:01 Last Admin: 01/18/19 08:42 Dose: 238 gm Tamsulosin HCl (Flomax) 0.4 mg PO DAILY [facility] - Exam General: Alert, Oriented, Cooperative, Mild Distress Lungs: Clear to Auscultation, Normal Respiratory Effort Cardiovascular: Regular Rate, Regular Rhythm, No Murmurs GI/Abdominal Exam: Soft, No Organomegaly, Tender. No: Distended, Guarding, Rigid, Rebound Extremities: Non-Tender, No Pedal Edema - Problem List Review Problem List Initiated/Reviewed/Updated: Yes - Plan Plan:: ASSESSMENT AND PLAN ABDOMINAL PAIN, bowel wall thickening, constipation, hx of bariatric surgery- -Follow up and management per Dr. Ayon -Bariatric diet -Saline lock IV -Medication for nausea as needed, reports Zofran does not relieve nausea -Protonix 40 mg IV every 12 hours Anxiety with depression -continue home medications -treat anxiety as needed MAINTENANCE ISSUES -DVT prophylaxis;SCD -GI prophylaxis; Protonix as above -Ponce catheter; not indicated -Nutrition; full liquid diet -Nicotine dependence; Nicotine patch 14 mcg daily CODE STATUS-DNR/DNI ADMISSION STATUS-patient will be admitted to inpatient status, expect at least a 2 night hospital stay for evaluation and management of problems as outlined above. At the time of this admission I do not reasonably expected evaluation and management of this problem will require more than a 96 hour hospital stay. DISPOSITION-anticipate discharge to home PRIMARY CARE PROVIDER-Dr. Donaldo Ayon and Dr. Lopez Hospitalist service will sign off on the patient if we can be of further assistance in ongoing management please feel free to reconsult
--- NOTE | 2019-01-18 16:00 | PCM.PN ---
- General Info Date of Service: 01/18/19 - Review of Systems General: Reports: Weakness, Fatigue Pulmonary: Reports: No Symptoms Cardiovascular: Reports: No Symptoms Gastrointestinal: Reports: Abdominal Pain, Nausea Genitourinary: Reports: No Symptoms Musculoskeletal: Reports: No Symptoms Skin: Reports: No Symptoms Systems Review Comment:: Dave Smith is a 48-year-old male who presented to the emergency department on 01/17/2019 with recurrent abdominal pain. Past surgical history includes a Giovany-en-Y gastric bypass procedure. CT of the abdomen revealed a segment of small bowel in the right lower quadrant with moderate wall thickening present, just proximal to an anastomotic staple line. Patient states he has not had a bowel movement for 4 days and he has been experiencing significant abdominal pain. He has tried 5 doses of Miralax and did not find relief. Total intake is 949 mL, total oral intake is 650 mL, total IV intake is 299 mL. Total output through urine source is 300 mL. - Patient Data Vitals - Most Recent: Last Vital Signs Temp 37.7 C 01/18/19 13:28 Pulse 55 L 01/18/19 13:28 Resp 18 01/18/19 13:28 BP 142/72 H 01/18/19 13:28 Pulse Ox 98 01/18/19 13:28 Weight - Most Recent: 83 kg I&O - Last 24 Hours: Intake & Output 01/18/19 01/18/19 01/18/19 06:59 14:59 22:59 Intake Total 949 1800 Output Total 300 900 Balance 649 900 Lab Results Last 24 Hours: Laboratory Results - last 24 hr 01/17/19 01/17/19 01/17/19 Range/Units 22:48 22:48 23:22 WBC 8.2 (4.5-11.0) K/uL RBC 4.89 (4.30-5.90) M/uL Hgb 15.9 H D (12.0-15.0) g/dL Hct 45.9 (40.0-54.0) % MCV 94 (80-98) fL MCH 33 H (27-31) pg MCHC 35 (32-36) % Plt Count 142 L (150-400) K/uL Neut % (Auto) 60 (36-66) % Lymph % (Auto) 32 (24-44) % [place] % (Auto) 6 (2-6) % Eos % (Auto) 2 (2-4) % Baso % (Auto) 0 (0-1) % Sodium 140 (140-148) mmol/L Potassium 3.9 (3.6-5.2) mmol/L Chloride 103 (100-108) mmol/L Carbon Dioxide 31 (21-32) mmol/L Anion Gap 6.0 (5.0-14.0) mmol/L BUN 12 (7-18) mg/dL Creatinine 0.9 (0.8-1.3) mg/dL Est Cr Clr Drug Dosing 109.23 mL/min Estimated GFR (MDRD) > 60 (>60) Glucose 88 (74-106) mg/dL Calcium 9.2 (8.5-10.1) mg/dL Total Bilirubin 0.6 D (0.2-1.0) mg/dL AST 34 (15-37) U/L ALT 55 (12-78) U/L Alkaline Phosphatase 114 (46-116) U/L C-Reactive Protein (0.0-0.3) mg/dL Total Protein 6.6 (6.4-8.2) g/dL Albumin 3.7 (3.4-5.0) g/dL Globulin 2.9 (2.3-3.5) g/dL Albumin/Globulin Ratio 1.3 (1.2-2.2) Urine Color Yellow Urine Appearance Clear Urine pH 6.0 (4.5-8.0) Ur Specific [place] 1.015 (1.008-1.030) Urine Protein Negative (NEGATIVE) mg/dL Urine Glucose (UA) Normal (NEGATIVE) mg/dL Urine Ketones 15 H (NEGATIVE) mg/dL Urine Occult Blood Negative (NEGATIVE) Urine Nitrite Negative (NEGAITVE) Urine Bilirubin Negative (NEGATIVE) Urine Urobilinogen Normal (NORMAL) mg/dL Ur Leukocyte Esterase Negative (NEGATIVE) Urine RBC 0-5 (0-5) Urine WBC 0-5 (0-5) Ur Epithelial Cells Few Amorphous Sediment Not seen Urine Bacteria Few Urine Mucus Not seen 01/18/19 Range/Units 00:59 WBC (4.5-11.0) K/uL RBC (4.30-5.90) M/uL Hgb (12.0-15.0) g/dL Hct (40.0-54.0) % MCV (80-98) fL MCH (27-31) pg MCHC (32-36) % Plt Count (150-400) K/uL Neut % (Auto) (36-66) % Lymph % (Auto) (24-44) % [place] % (Auto) (2-6) % Eos % (Auto) (2-4) % Baso % (Auto) (0-1) % Sodium (140-148) mmol/L Potassium (3.6-5.2) mmol/L Chloride (100-108) mmol/L Carbon Dioxide (21-32) mmol/L Anion Gap (5.0-14.0) mmol/L BUN (7-18) mg/dL Creatinine (0.8-1.3) mg/dL Est Cr Clr Drug Dosing mL/min Estimated GFR (MDRD) (>60) Glucose (74-106) mg/dL Calcium (8.5-10.1) mg/dL Total Bilirubin (0.2-1.0) mg/dL AST (15-37) U/L ALT (12-78) U/L Alkaline Phosphatase (46-116) U/L C-Reactive Protein 0.08 (0.0-0.3) mg/dL Total Protein (6.4-8.2) g/dL Albumin (3.4-5.0) g/dL Globulin (2.3-3.5) g/dL Albumin/Globulin Ratio (1.2-2.2) Urine Color Urine Appearance Urine pH (4.5-8.0) Ur Specific [place] (1.008-1.030) Urine Protein (NEGATIVE) mg/dL Urine Glucose (UA) (NEGATIVE) mg/dL Urine Ketones (NEGATIVE) mg/dL Urine Occult Blood (NEGATIVE) Urine Nitrite (NEGAITVE) Urine Bilirubin (NEGATIVE) Urine Urobilinogen (NORMAL) mg/dL Ur Leukocyte Esterase (NEGATIVE) Urine RBC (0-5) Urine WBC (0-5) Ur Epithelial Cells Amorphous Sediment Urine Bacteria Urine Mucus Med Orders - Current: Current Medications Acarbose (Precose) 75 mg PO TIDMEALS [facility] Last Admin: 01/18/19 12:53 Dose: 75 mg Albuterol (Proventil Neb Soln) 2.5 mg NEB Q4H PRN PRN Reason: Shortness Of Breath/wheezing Amitriptyline HCl (Elavil) 150 mg PO BEDTIME [facility] Duloxetine HCl (Cymbalta) 90 mg PO QAM [facility] Last Admin: 01/18/19 08:46 Dose: 90 mg Fluticasone Propionate (Flonase) 0 gm NASBOTH BEDTIME [facility] Folic Acid (Folic Acid) 1 mg PO DAILY [facility] Last Admin: 01/18/19 08:46 Dose: 1 mg Furosemide (Lasix) 20 mg PO DAILY [facility] Last Admin: 01/18/19 08:46 Dose: 20 mg Gabapentin (Neurontin) 600 mg PO TID [facility] Last Admin: 01/18/19 13:32 Dose: 600 mg Lactated Ringer's (Ringers, Lactated) 1,000 mls @ 0 mls/hr IV ASDIRECTED [facility] Lorazepam (Ativan) 1 mg IV Q6H PRN PRN Reason: Nausea/Vomiting Last Admin: 01/18/19 11:39 Dose: 1 mg Naloxegol (Movantik) 25 mg PO DAILY [facility] Last Admin: 01/18/19 08:47 Dose: Not Given Nicotine (Habitrol) 14 mg TRDERM DAILY [facility] Last Admin: 01/18/19 08:50 Dose: 14 mg Pantoprazole Sodium (Protonix) 40 mg PO ACBREAKFAST [facility] Last Admin: 01/18/19 08:46 Dose: 40 mg Stephanie Oral (Suspension Pom) 0 each PO BID [facility] Last Admin: 01/18/19 09:58 Dose: 1 each Propranolol HCl (Inderal) 40 mg PO TID [facility] Last Admin: 01/18/19 13:32 Dose: 40 mg Senna/Docusate Sodium (Senna Plus) 3 tab PO BEDTIME [facility] Tamsulosin HCl (Flomax) 0.4 mg PO BEDTIME [facility] Discontinued Medications Hydromorphone HCl (Dilaudid Outpatient Receptionist 15 Mg In Ns 30 Ml) 0 mg IV ASDIRECTED PRN; Protocol PRN Reason: Pain Last Admin: 01/18/19 02:45 Dose: 15 mg Sodium Chloride (Normal Saline) 1,000 mls @ 999 mls/hr IV ASDIRECTED [facility] Last Admin: 01/17/19 22:50 Dose: 999 mls/hr Lactated Ringer's (Ringers, Lactated) 1,000 mls @ 125 mls/hr IV ASDIRECTED [facility] Last Admin: 01/18/19 02:47 Dose: 125 mls/hr Ketorolac Tromethamine (Toradol) 30 mg IVPUSH ONETIME ONE Stop: 01/17/19 22:37 Last Admin: 01/17/19 22:50 Dose: 30 mg Lorazepam (Ativan) 1 mg IVPUSH ONETIME ONE Stop: 01/18/19 01:30 Last Admin: 01/18/19 01:43 Dose: 1 mg Naloxone HCl (Narcan) 0.4 mg IVPUSH Q2M PRN PRN Reason: Respiratory Distress Pantoprazole Sodium (Protonix Iv) 40 mg IVPUSH DAILY [facility] Polyethylene Glycol (Miralax) 238 gm PO ONETIME ONE Stop: 01/18/19 09:01 Last Admin: 01/18/19 08:42 Dose: 238 gm Tamsulosin HCl (Flomax) 0.4 mg PO DAILY [facility] - Exam General: Lethargic Lungs: Clear to Auscultation, Normal Respiratory Effort Cardiovascular: Regular Rate, Regular Rhythm, No Murmurs GI/Abdominal Exam: Soft, No Distention Extremities: Normal Inspection Skin: Warm, Dry Psy/Mental Status: Other (Appears sedated due to pain medication) - Problem List Review Problem List Initiated/Reviewed/Updated: Yes - Assessment Assessment:: 1. Abdominal pain 2. Bowel wall thickening 3. Chronic constipation with acute worsening - Plan Plan:: 1. Initiate step 3 diet 2. Discontinue [employer] due to pain medication sedation 3. Administer Miralax 119g in 32 oz of Gatorade, twice this AM 4. Initiate pertinent home medications; reference physician order sheet 5. Obtain an abdominal x-ray in the AM 6. Saline lock IV 7. Recheck in AM or as needed
[2019-01-18] MEDS ORDERED: Rizatriptan 10 MG Tab.DIS PO PRN (16:12)
[2019-01-18] MEDS ORDERED: ALPRAZolam 0.5 MG Tab PO SCH (21:00)
[2019-01-18] MEDS ORDERED: Fluticasone Propionate Nasal Spray 16 GM Bottle NASBOTH SCH (21:00)
--- NOTE | 2019-01-19 05:13 | CRLCR ---
INDICATION: Abdominal pain TECHNIQUE: Abdominal radiograph 3 views COMPARISON: 01/17/2019, 01/18/2019 FINDINGS: Bowel: Nonspecific small scattered air-fluid levels are present within the small bowel and colon. Numerous anastomotic bowel staple lines are present in the right flank and left paraspinal region. Soft tissue: No evidence of pneumoperitoneum present. No suspicious calcifications noted. The patient is status post prior cholecystectomy. Bone: Unremarkable for age. IMPRESSION: 1. Nonspecific small scattered air-fluid levels are present within the small bowel and colon. Dictated by Salvador Dugan MD @ 01/19/2019 5:13:01 AM Dictated by: Salvador Dugan MD @ 01/19/2019 05:13:03 (Electronically Signed)
[2019-01-19 07:53] VITALS: BP 124/72
[2019-01-19] MEDS: Pantoprazole 40 MG Tab.CR PO SCH (07:54)
[2019-01-19] MEDS: DULoxetine 30 MG Cap PO SCH (09:25)
[2019-01-19] MEDS: Folic Acid 1 MG Tab PO SCH (09:25)
[2019-01-19] MEDS: Propranolol 40 MG Tab PO SCH (09:25)
[2019-01-19] MEDS: Gabapentin 300 MG Cap PO SCH (09:25)
[2019-01-19] MEDS: Naloxegol Oxalate 25 MG Tab PO SCH (09:25)
[2019-01-19] MEDS: [UNRECOGNIZED DRUG - OTHER] PO SCH (09:25)
[2019-01-19] MEDS: Nicotine 14 MG/24 Hr Patch TRDERM SCH (09:26)
[2019-01-19] MEDS: Furosemide 20 MG Tab PO SCH (09:26)
--- NOTE | 2019-01-19 14:52 | DISCH ---
ADMISSION DIAGNOSES: 1. Constipation. 2. Bowel wall thickening. 3. Chronic generalized abdominal pain. 4. Constipation by delayed colonic transit. 5. Tobacco use. 6. Major depression disorder. 7. SP Giovany-en-Y gastric bypass surgery. 8. Unspecified surgical malabsorption. 9. B12 deficiency. 10.Anxiety disorder. 11.Post-traumatic stress disorder. 12.Postconcussion syndrome. 13.Chronic back pain. 14.Neuro-behavior disorder. 15.Traumatic brain injury. DISCHARGE DIAGNOSIS: Resolution of constipation. HISTORY: Panda Smith was admitted through the emergency room with acute abdominal pain. He had not had a bowel movement for 4 days and was having abdominal pain and nausea. He had tried 5 doses of MiraLAX without any results. Lab tests were drawn. They were within normal limits. CT scan revealed a segment of small bowel right lower quadrant of moderate wall thickening just proximal to the anastomosis staple line, appearance was nonspecific. He was admitted to the hospital. After a CT, he was given full liquid diet, IV fluids, Dilaudid MANUFACTURING SUPERVISOR, Protonix IV every 12 hours, and Zofran p.r.n. nausea. On January 18, he did see Umesh Moy MD, hospitalist, for recurrent abdominal pain. He evaluated. There was no specific etiology. He was given a step 3 diet. His MANUFA[employer]URING SUPERVISOR was discontinued due to increased sedation. He was given 119 g MiraLAX, started his home medications, and he started having bowel movements and was able to be discharged to home on 01/19/2019. REVIEW OF SYSTEMS: HEENT: Negative. NECK: Negative. HEART: Negative. No chest pain or shortness of breath. LUNGS: No cough. ABDOMEN: Having bowel movements. Denies any bloating or pain. EXTREMITIES: Negative. No change. NEUROLOGIC: Intact. PSYCHIATRIC: Mood and affect appropriate, normal for the patient. PHYSICAL EXAMINATION: GENERAL: Panda is a 48-year-old male. VITAL SIGNS: Height 5 feet 10 inches, weight is 182 pounds. TPR 95.9, 55, 16, blood pressure 124/72. HEENT: Negative. NECK: Supple. HEART: Regular rate and rhythm. LUNGS: Clear. ABDOMEN: Soft and nontender. EXTREMITIES: Without peripheral edema. NEUROLOGIC: No change. PSYCHIATRIC: Negative. DISPOSITION: Discharged to home. CONDITION: Stable and improving. FOLLOWUP: He is to follow up Donaldo Ayon MD, in 1 month on 02/21/2019 at 10:00 a.m. DISCHARGE MEDICATIONS: He is to resume home medications: 1. Alprazolam ODT 2 mg at bedtime. 2. Acarbose 75 mg 3 times a day. 3. Amitriptyline 150 mg at bedtime. 4. Vitamin C 1000 mg oral daily. 5. Calcium citrate 250 mg oral every evening. 6. Vitamin D3 5000 international units daily. 7. B12 injection 1000 mcg IM every three weeks. 8. Duloxetine 90 mg every morning. 9. Voltaren 1% gel one applicator 4 times a day. 10.Flonase 2 sprays in each nostril at bedtime. 11.Folic acid 1 mg oral daily. 12.Lasix 20 mg oral daily. 13.Neurontin 600 mg oral 3 times a day. 14.Multivitamin one capsule twice daily. 15.Movantik 25 mg oral daily. 16.Norethindrone 3 mL oral twice daily suspension. 17.MiraLAX 85 mg oral daily. 18.Inderal 40-80 mg oral 3 times a day. 19.Rizatriptan 10 mg sublingual p.r.n. migraine headaches. 20.Maxalt-RECYCLABLE MATERIALS COLLECTOR 10 mg oral daily. 21.Sennoside 3 tablets oral at bedtime. 22.Flomax 0.4 daily. 23.Eldon oil 9 mL at bedtime. 24.Vitamin B complex 1 oral before bed. 25.Yoly oxide 50 mg oral daily. DIET: Resume normal diet. ACTIVITY: As tolerated. To notify provider if any increase in abdominal pain, nausea, or vomiting. Total discharge greater than 10 minutes.
== END 2019-01-19 10:30 | disposition home or self-care (01) | DRG 392 ==
LOC: JP.ED 20:21 → JP.ICU 01-18 01:33 → JP.2SS 01-18 13:39
PROVIDERS: ADMIT Hospitalist; ATTEND Surgery
DX: R10.9 Unspecified abdominal pain (principal); R11.0 Nausea; K59.01 Slow transit constipation; K91.2 Postsurgical malabsorption, not elsewhere classified; Z66 Do not resuscitate; K63.9 Disease of intestine, unspecified; Z98.84 Bariatric surgery status; Z98.0 Intestinal bypass and anastomosis status; F17.210 Nicotine dependence, cigarettes, uncomplicated; E53.8 Deficiency of other specified B group vitamins; Z87.820 Personal history of traumatic brain injury; G44.329 Chronic post-traumatic headache, not intractable; F07.81 Postconcussional syndrome; K21.9 Gastro-esophageal reflux disease without esophagitis; J30.9 Allergic rhinitis, unspecified; H54.7 Unspecified visual loss; Z87.01 Personal history of pneumonia (recurrent); M54.9 Dorsalgia, unspecified; G89.29 Other chronic pain; M19.90 Unspecified osteoarthritis, unspecified site; M79.7 Fibromyalgia; F32.9 Major depressive disorder, single episode, unspecified; F41.9 Anxiety disorder, unspecified; F43.10 Post-traumatic stress disorder, unspecified; G43.809 Other migraine, not intractable, without status migrainosus; Z91.041 Radiographic dye allergy status; Z88.5 Allergy status to narcotic agent; Z91.048 Other nonmedicinal substance allergy status; R10.84 Generalized abdominal pain
CPT/HCPCS: 36415 ×2; 74022; 74176; 80053; 81001; 85025; 86140; 96361; 96374; 99285; J1885; J7030; 74019; A9270-GY; J1170; J2060; J7120